=== PATIENT | female | born 1955 | race Caucasian/White ===

== ENCOUNTER → 2018-01-27 12:25 | Outpatient (CLI) | payer MEDICAID, SELFPAY ==
[2018-01-27 12:49] VITALS: PULSE 100; PULSE 107; PULSE 109; PULSE 112; PULSE 77; PULSE 78; PULSE 80; PULSE 82; O2SAT 94; O2SAT 95; O2SAT 96; O2SAT 97
--- NOTE | 2018-01-28 06:41 | PCM.PSN.6M ---
PSN 6 Minute Walk Test - 6 Minute Walk Test 6 Minute Walk Test: 6 Minute Walk Test PSN:6-Minute Walk Test Start: 01/27/18 12:49 Freq: Status: Active Protocol: [id number].6MINW Document 01/27/18 12:49 [facility] (Rec: 01/27/18 12:54 [facility] [id number]) 6 Minute Walk Test Date Performed 01/27/18 Time Performed 12:30 Height 5 ft 4 in Weight: 77.111 kg Weight in Pounds 170.[address]: Jw Umanzor FIO2 (% Oxygen) 21 Assistive device used: None Pre-test Oxygen Delivery Method Room Air Pulse Ox (%) 97 Pulse Rate (60-100 beats/min) 77 Dyspnea Cinthia Scale (0-10) 0 1st minute Oxygen Delivery Method Room Air Pulse Ox (%) 96 Pulse Rate (60-100 beats/min) 80 Dyspnea Cinthia Scale (0-10) 0 2nd minute Oxygen Delivery Method Room Air Pulse Ox (%) 95 Pulse Rate (60-100 beats/min) 82 Dyspnea Cinthia Scale (0-10) 1 3rd minute Oxygen Delivery Method Room Air Pulse Ox (%) 96 Pulse Rate (60-100 beats/min) 100 Dyspnea Cinthia Scale (0-10) 2 Reported Symptoms Increased Work of Breathing 4th minute Oxygen Delivery Method Room Air Pulse Ox (%) 95 Pulse Rate (60-100 beats/min) 112 H Dyspnea Cinthia Scale (0-10) 3 Reported Symptoms Increased Work of Breathing 5th minute Oxygen Delivery Method Room Air Pulse Ox (%) 95 Pulse Rate (60-100 beats/min) 109 H Dyspnea Cinthia Scale (0-10) 3 Reported Symptoms Increased Work of Breathing 6th minute Oxygen Delivery Method Room Air Pulse Ox (%) 94 Pulse Rate (60-100 beats/min) 107 H Dyspnea Cinthia Scale (0-10) 3 Reported Symptoms Increased Work of Breathing Post-test Oxygen Delivery Method Room Air Pulse Ox (%) 97 Pulse Rate (60-100 beats/min) 78 Dyspnea Cinthia Scale (0-10) 0 Full Laps Walked 19 Partial Lap, Number of Tiles Walked 37 Total Distance Walked (ft) 1158 - Interpretation Interpretation: The patient was able to ambulate 1158 feet over the course of 6 minutes on room air with no assistive devices or breaks. The patient experienced no significant desaturation, but did have a peak heart rate of 109 bpm. These findings are consistent with deconditioning. - Recommendations Recommendations: No supplemental oxygen is indicated at this time.
== END ==
PROVIDERS: Family Provider Family Medicine; PCP Family Medicine; Referring Provider Internal Medicine Critical Care Medicine; Visit Provider Internal Medicine Critical Care Medicine
DX: R06.09 Other forms of dyspnea (principal)
CPT/HCPCS: 94618

== ENCOUNTER → 2018-02-22 13:40 | Outpatient (CLI) | payer MEDICAID, SELFPAY ==
[2018-02-22 10:58] VITALS: BMI 29.2
--- NOTE | 2018-02-22 13:42 | ECHOD_ITS ---
Reason For Study: DYSPNEA Procedure This was a 2D Doppler, Color Flow transthoracic echocardiogram. Exam performed in department. Left Ventricle Normal LV size. Left ventricular systolic function is normal. The estimated ejection fraction is 60 %. Transmitral diastolic flow velocities suggest mild (stage 1) diastolic dysfunction (reversed pattern). The global longitudinal strain is normal. The global longitudinal strain = -23.2 % (normal). No regional wall motion abnormalities noted. Right Ventricle Normal RV size. Normal systolic function. Atria Normal left atrium. Normal right atrium. Mitral Valve Normal mitral valve. Tricuspid Valve Normal tricuspid valve. Mild tricuspid valve insufficiency. Pulmonary artery systolic pressure is 22 mmHg. Aortic Valve Normal aortic valve. Trisinus/trileaflet aortic valve. Pulmonic Valve Normal pulmonic valve. Great Vessels Normal aortic root. The pulmonary artery is normal size. Normal inferior vena cava. Pericardium/Pleural No pericardial effusion. MMode/2D Measurements & Calculations LVIDd: 4.4 cm IVSd: 1.0 cm Ao root diam: 3.2 cm LVIDs: 2.9 cm LVPWd: 0.89 cm RVDd: 2.7 cm FS: 33.9 % LAV(MOD-bp): 56.0 ml LA A4 area: 18.2 cm2 LA dimension(2D): 3.5 cm LAV(MOD-bp) Indexed: 30.7 ml/m2 LAV(MOD-sp2): 58.2 ml LAV(MOD-sp4): 49.7 ml RA A4 area: 14.7 cm2 Time Measurements MV dec time: 0.27 sec Doppler Measurements & Calculations MV E max isreal: 80.1 cm/sec Lat Peak E' Isreal: 8.8 cm/sec Med Peak E' Isreal: 5.9 cm/sec MV A max isreal: 85.8 cm/sec E/E' lat: 9.1 E/E' med: 13.5 MV E/A: 0.93 Ao V2 max: 171.5 cm/sec LV V1 max: 138.2 cm/sec PA V2 max: 100.4 cm/sec Ao max P.8 mmHg LV V1 max P.7 mmHg TR max isreal: 213.8 cm/sec TR max P.3 mmHg Interpretation Summary Normal LV size. Left ventricular systolic function is normal. The estimated ejection fraction is 60 %. Transmitral diastolic flow velocities suggest mild (stage 1) diastolic dysfunction (reversed pattern). Mild tricuspid valve insufficiency. The global longitudinal strain = -23.2 % (normal). Ordering Physician: Jw Umanzor D.O. Referring Physician: ADAM BANEGAS Performed By: Shaye Ruiz, EFREM, RVT
== END ==
PROVIDERS: Family Provider Family Medicine; PCP Family Medicine; Referring Provider Internal Medicine Critical Care Medicine; Visit Provider Internal Medicine Critical Care Medicine
DX: R06.09 Other forms of dyspnea (principal)
CPT/HCPCS: 93306

== ENCOUNTER → 2018-03-08 08:34 | Outpatient (CLI) | payer MEDICAID, SELFPAY ==
[2018-03-02 15:51] VITALS: BMI 29.7
--- NOTE | 2018-03-08 08:46 | RAD_ITS ---
STUDY: X-RAY CHEST REASON FOR EXAM: Female, 63 years old. TECHNIQUE: COMPARISON: None. FINDINGS: The lungs are clear and expanded. There is no demonstrated pleural abnormality. Normal size heart. Normal mediastinum and miguel. Normal visualized pulmonary arteries. Normal visualized aortic arch with mild tortuosity of the thoracic aorta. Mild hypertrophic changes involving the mid dorsal spine. Normal visualized ribs, clavicles, and shoulders. There is no demonstrated abnormality of the visualized soft tissue structures of the upper abdomen. RAD/Chest PA and Lateral IMPRESSION: Normal x-ray examination of the chest. Electronically Signed: Star Martínez, at 12:02 EST Tel , Service support ,
[2018-03-08 09:08] LABS: Absolute Lymphocyte Count 1.34 X10^3/ul (0.83-4.51); Absolute Neutrophil Count 3.7 X10^3/uL (2.0-7.7); Basophil# 0.05 X10^3/uL; Basophil% 0.9 % (0-1); Eosinophil# 0.23 X10^3/uL; Eosinophils% 3.9 % (0-5); Hematocrit 39.5 % (37-47); Hemoglobin 12.3 g/dl (12.0-15.0); Lymphocyte # 1.34 X10^3/ul (4.0); Lymphocyte % 22.9 % (19-41); Mean Corp Hgb Conc 31.1 g/gl (32-36); Mean Corpuscular Hgb 27.6 pg (27.0-32.0); Mean Corpuscular Volume 88.6 fL (81-99); Monocyte# 0.51 X10^3/uL; Monocyte% 8.7 % (0-10); Neutrophil # 3.72 X10^3/uL (2.7-7.7); Neutrophil % 63.4 % (47-70); Platelet Count 325 K/mm3 (150-450); RBC Distribution Width CV 14.5 % (11.6-14.6); RBC Distribution Width SD 46.7 fl (35.1-43.9); Red Blood Count 4.46 M/mm3 (4.2-5.4); White Blood Count 5.9 K/mm3 (4.4-11.0)
[2018-03-08 09:09] LABS: POSITIVE COUNT NO; POSITIVE DIFFERENTIAL NO; POSITIVE MORPHOLOGY NO
[2018-03-08 09:21] LABS: International Normalized Ratio 1.1; Prothrombin Time (Protime)PT. 13.7 SECONDS (11.7-14.9)
[2018-03-08 09:41] LABS: AST(SGOT) 11 U/L (15-37); Alanine Aminotransfer ALT/SGPT 19 U/L (13-56); Albumin, Serum 3.6 g/dL (3.2-5.0); Alkaline Phosphatase 78 U/L (45-117); Anion Gap 8 (5-15); BUN 21 mg/dL (7-18); BUN/Creat Ratio 28.8 RATIO (10-20); Bilirubin, Direct 0.09 mg/dL (0.00-0.30); Chloride 105 mmol/L (98-107); Cholesterol 166 mg/dL (200); Creatinine, Serum 0.73 mg/dL (0.55-1.02); EST Glomerular Filtration Rate 86 mL/min (>60); Est Glom Filt Rate - Afr Amer 104 mL/min (>60); Globulin 3.9 g/dL (2.2-4.2); Glucose 90 mg/dL (74-106); High Density Lipoprotein 36 mg/dL; Potassium 3.4 mmol/L (3.5-5.1); Protein, Total 7.5 g/dL (6.4-8.2); Sodium Level 141 mmol/L (136-145); Triglycerides 215 mg/dL; Very Low Density Lipoprotein 43 mg/dL (5-40)
== END ==
PROVIDERS: Family Provider Family Medicine; PCP Family Medicine; Referring Provider Internal Medicine Cardiovascular Disease; Visit Provider Internal Medicine Cardiovascular Disease
DX: E78.5 Hyperlipidemia, unspecified (principal); R06.02 Shortness of breath; R06.00 Dyspnea, unspecified; R07.9 Chest pain, unspecified
CPT/HCPCS: 36415; 71046; 80048; 80061; 80076; 85025; 85610

== ENCOUNTER 2018-03-19 07:41 | Day surgery (SDC) | payer MEDICAID, SELFPAY ==
[2018-03-02 15:51] VITALS: BMI 29.7
[2018-03-18 08:00] VITALS: BMI 29.7
[2018-03-19 08:31] LABS: Anion Gap 9 (5-15); BUN 22 mg/dL (7-18); BUN/Creat Ratio 28.9 RATIO (10-20); Calcium,Total 9.1 mg/dL (8.5-10.1); Chloride 104 mmol/L (98-107); Creatinine, Serum 0.76 mg/dL (0.55-1.02); EST Glomerular Filtration Rate 81 mL/min (>60); Est Glom Filt Rate - Afr Amer 99 mL/min (>60); Estimated Creatinine Clearance 64.58 ml/min; Glucose 105 mg/dL (74-106); Potassium 3.3 mmol/L (3.5-5.1); Sodium Level 140 mmol/L (136-145)
--- NOTE | 2018-03-19 10:04 | CL.D_ITS ---
Patient Name: LEXUS PEOPLES Study Date: 03/19/2018 Performing: Seun Burgess MD Ht: 64.17 inches 163 cm : 1955 Wt: 171.96 lbs 78 kg Age: 63 Gender: female BSA: 1.84 PROCEDURE(S) PERFORMED [id number]/LV CLINICAL PROFILE AND INDICATIONS Indications: New Onset Angina <= 2 months, Suspected CAD Heart Failure: None Stress/Imaging Stress Echocardiogram: Yes Result: IndeterminantStress Echocardiogram: Indetermina nt Angina Classification Anginal Classification w/in 2 Weeks: CCS III CAD Presentations: Unstable angina. Comorbidities/Risk Factors: Hypertension Dyslipidemia CONCLUSIONS Normal LV size, wall motion,and systolic function RECOMMENDATIONS D/c plavix, continue baby asa, PFTs in 2 weeks. DESCRIPTION OF PROCEDURE The patient arrived to the procedure lab. The risks and benefits of the procedure as well as a full d escription of our services here and current unavailability of surgical backup were fully explained to the patient and/or their significant other prior to the catheterization. The Timeout was completed, verifying the correct patient and procedure. The patient's procedural site was prepped and draped in the usual fashion. Local anesthetic was given subcutaneously to right groin region with Lidocaine 2%. Using a modified Seldinger technique, arterial access was obtained via the right femoral artery, a 4 Fr sheath was inserted Left Coronary Artery selective angiography was performed in multiple views us ing a 4 Fr. JL5 catheter. Right Coronary Artery selective angiography was then performed in multiple views using a 4 Fr. 3DRC catheter. Left Ventriculography was performed in PHAM projection using a 4 Fr . Pigtail catheter. LV to AO pullback pressures were then recorded.The arterial sheath was pulled and manual compression applied until hemostasis is achieved. CORONARY ANGIOGRAPHY DOMINANCE: Right Dominant LEFT HEART ASSESSMENT Left Ventricular Ejection Fraction: by LV Gram 65 % Normal LV wall motion Normal Left Ventricular systolic function Normal Left Ventricular systolic function LVEDP: 14 mmHg LEFT MAIN: Angiographically normal LEFT ANTERIOR DECENDING ARTERY: Angiographically normal CIRCUMFLEX ARTERY: Angiographically normal RIGHT CORONARY ARTERY: Angiographically normal COMPLICATIONS No Complications PROCEDURE MEDICATIONS Oxygen: 2 L/min via nasal cannula Potassium Chloride 10 mEq in 100cc NS 03/19/2018 09:23:19 SUMMARY OF HEMODYNAMIC DATA Time AIR REST ECG 08:14:48 AO 145/67 (98) SA 09:51:54 LV 150/-20, 13 09:56:30 LV 154/-20, 14 09:56:37 LVp 151/-23, 12 09:56:52 AOp 151/72 (106) 09:56:57 Signed By Seun Burgess MD On 03/19/2018 10:03:21 Seun Burgess MD
== END 2018-03-19 14:40 | disposition home or self-care (01) ==
LOC: CLSP 07:41
PROVIDERS: Family Provider Family Medicine; PCP Family Medicine; Referring Provider Internal Medicine Cardiovascular Disease; Visit Provider Internal Medicine Cardiovascular Disease
DX: R06.02 Shortness of breath (principal); E78.5 Hyperlipidemia, unspecified; I10 Essential (primary) hypertension; R40.0 Somnolence; R07.9 Chest pain, unspecified
CPT/HCPCS: 36415; 80048; 93458; J7040; Q9967; C1769; C1894

== ENCOUNTER → 2018-05-03 20:00 | Outpatient (CLI) | payer MEDICAID, SELFPAY ==
[2018-03-02 15:51] VITALS: BMI 29.7
== END ==
PROVIDERS: Family Provider Family Medicine; PCP Family Medicine; Referring Provider Internal Medicine Cardiovascular Disease; Visit Provider Internal Medicine Cardiovascular Disease
DX: G47.33 Obstructive sleep apnea (adult) (pediatric) (principal); I49.3 Ventricular premature depolarization
CPT/HCPCS: 95810

== ENCOUNTER → 2018-05-26 20:07 | Outpatient (CLI) | payer MEDICAID, SELFPAY ==
[2018-05-18 13:18] VITALS: BMI 29.7
== END ==
PROVIDERS: Family Provider Family Medicine; PCP Family Medicine; Referring Provider Internal Medicine Cardiovascular Disease; Visit Provider Internal Medicine Cardiovascular Disease
DX: G47.33 Obstructive sleep apnea (adult) (pediatric) (principal)
CPT/HCPCS: 95811

== ENCOUNTER → 2018-06-21 | Outpatient (CLI) | payer MEDICAID, SELFPAY ==
[2018-05-18 13:18] VITALS: BMI 29.7
== END | disposition home or self-care (01) ==
LOC: SL 13:53
PROVIDERS: Family Provider Family Medicine; PCP Family Medicine; Referring Provider Nurse Practitioner Acute Care; Visit Provider Nurse Practitioner Acute Care
DX: G47.33 Obstructive sleep apnea (adult) (pediatric) (principal)

== ENCOUNTER → 2019-01-24 14:13 | Outpatient (CLI) | payer MEDICARE, MEDICAID, SELFPAY ==
[2018-10-11 15:39] VITALS: BMI 31.6
--- NOTE | 2019-01-24 14:25 | VDLE_ITS ---
Reason For Study: EDEMA RIGHT LEFT CFV is compressible, spontaneous, phasic, GSV is normal. competent and demonstrates normal CFV is compressible, spontaneous, phasic, augmentation. competent, and demonstrates normal Procedure augmentation. Exam performed in department. FV is compressible, spontaneous, phasic, A preliminary report was called and/or faxed competent and demonstrates normal to Dr Mejia. augmentation. POP V is compressible, spontaneous, phasic, competent and demonstrates normal augmentation. T/P Trunk is compressible. PTV is compressible. LT PerV is compressible. Interpretation Summary Deep veins of the left lower extremity are patent and compressible segmentally. There is no evidence of left lower extremity deep vein thrombosis. Valvular competence appears intact within the proximal deep venous system on the left . The left great saphenous vein appears patent and compressible segmentally. Ordering Physician: Madeleine Mejia Referring Physician: Madeleine Mejia Performed By: Shaye Ruiz, EFREM, RVT
== END ==
PROVIDERS: Family Provider Family Medicine; PCP Family Medicine; Referring Provider Family Medicine; Visit Provider Family Medicine
DX: M79.662 Pain in left lower leg (principal); R60.9 Edema, unspecified
CPT/HCPCS: 93971

== ENCOUNTER → 2019-06-03 13:05 | Outpatient (CLI) | payer MEDICARE, BC, SELFPAY ==
[2018-10-11 15:39] VITALS: BMI 31.6
--- NOTE | 2019-06-03 13:09 | VDUE_ITS ---
Reason For Study: RUE swelling Right Proximal Left Proximal Right jugular vein is spontaneous, widely Left subclavian vein is spontaneous, widely patent, phasic, with no intraluminal patent, phasic, with no intraluminal echogenicity noted. echogenicity noted. Right subclavian vein is spontaneous, widely patent, phasic, with no intraluminal echogenicity noted. Right Lower Arm Right radial vein is compressible. Right ulnar vein is compressible. Right Arm Right axillary vein is spontaneous, patent, phasic, competent, compressible and demonstrates augmentation. Right brachial vein is compressible. Right cephalic vein is compressible. Right basilic vein is compressible. Interpretation Summary Deep veins of the right upper extremity are patent and compressible segmentally. There is no evidence of deep vein thrombosis. The superficial veins of the right upper extremity, the basilic and cephalic veins, are patent and compressible. There is no evidence of right upper extremity superficial thrombophlebitis involving the veins imaged. Ordering Physician: Zachary David Referring Physician: Zachary David Performed By: Yomaira Oleary, RDCS, RVT ?
== END ==
PROVIDERS: PCP Family Medicine; Referring Provider Family Medicine; Visit Provider Family Medicine
DX: M79.601 Pain in right arm (principal); M79.89 Other specified soft tissue disorders
CPT/HCPCS: 93971

== ENCOUNTER → 2019-07-07 13:17 | Outpatient (CLI) | payer MEDICARE, SELFPAY ==
[2018-10-11 15:39] VITALS: BMI 31.6
[2019-07-07 14:23] LABS: Creatinine, Serum 0.78 mg/dL (0.55-1.02); EST Glomerular Filtration Rate 79 mL/min (>60); Est Glom Filt Rate - Afr Amer 95 mL/min (>60)
== END ==
PROVIDERS: PCP Family Medicine; Referring Provider Surgery Vascular Surgery; Visit Provider Surgery Vascular Surgery
DX: M79.609 Pain in unspecified limb (principal); R60.9 Edema, unspecified; I74.9 Embolism and thrombosis of unspecified artery
CPT/HCPCS: 36415; 82565

== ENCOUNTER → 2019-07-14 13:13 | Outpatient (CLI) | payer MEDICARE, BC, SELFPAY ==
[2018-10-11 15:39] VITALS: BMI 31.6
--- NOTE | 2019-07-14 13:16 | CT_ITS ---
STUDY: CT SCAN UPPER EXTREMITY RIGHT REASON FOR EXAM: Female, 64 years old. Right arm swelling, shoulder pain x 2 months, eval for arterial embolism or thoracic outlet syndrome. Venous phase per order. RADIATION DOSAGE (If Supplied By Facility): CTDIvol = ( 23.81 ) mGy, DLP = ( 2087.74 ) mGycm. Individualized dose optimization techniques were used for this CT.? TECHNIQUE: Multiple axial tomographic images were obtained following IV contrast administration. Coronal and sagittal reconstruction was obtained as well. COMPARISON: None. FINDINGS: The right subclavian artery as well as the axillary artery and brachial arteries are widely patent. No evidence of obstruction. Benign appearing right axillary lymph nodes. CT/Extremity Upper WITH Contrast IMPRESSION: No abnormality is seen. Electronically Signed: Kimani De Oliveira, at 14:33 EDT , Service support ,
--- NOTE | 2019-07-14 13:16 | CT_ITS ---
STUDY: CTA CHEST REASON FOR EXAM: Female, 64 years old. Right arm swelling, shoulder pain x 2 months, eval for arterial embolism or thoracic outlet syndrome. RADIATION DOSAGE (If Supplied By Facility): CTDIvol = ( 23.81 ) mGy, DLP = ( 2087.74 ) mGycm TECHNIQUE: The examination was performed with the intravenous administration of 100mL Isovue 370. Post-processing of the angiographic images was performed, with multiplanar reformation and 3D reconstruction. Individualized dose optimization techniques were used for this CT. COMPARISON: None. FINDINGS: Small benign-appearing bilateral axillary lymph nodes. Normal enhancement of the main pulmonary artery and right and left pulmonary arteries. Normal enhancement of the bilateral peripheral pulmonary arteries. There is no demonstrated pulmonary embolism. There is atherosclerotic calcification of the aortic arch with tortuosity. There is no demonstrated aortic dissection. Normal heart and pericardium. Normal mediastinum. Normal hilar regions. Normal visualized trachea and bronchi. The lungs are well expanded. Normal pulmonary parenchyma. Normal pleura. Normal chest wall structures. There are degenerative changes of thoracic spine. Small hiatal hernia. CT/CTA Chest W/WO Contrast IMPRESSION: Normal CTA chest examination, without a demonstrated pulmonary embolism or arterial dissection. No evidence of thoracic outlet syndrome. Electronically Signed: Kimani De Oliveira, at 14:32 EDT , Service support ,
== END ==
PROVIDERS: PCP Family Medicine; Referring Provider Surgery Vascular Surgery; Visit Provider Surgery Vascular Surgery
DX: M79.609 Pain in unspecified limb (principal); R60.9 Edema, unspecified; I74.9 Embolism and thrombosis of unspecified artery
CPT/HCPCS: 71275; 73201; Q9967

== ENCOUNTER → 2019-10-13 08:44 | Outpatient (CLI) | payer MEDICARE, SELFPAY ==
[2019-09-08 06:50] VITALS: BMI 31.8
[2019-10-13 09:52] LABS: AST(SGOT) 17 U/L (15-37); Alanine Aminotransfer ALT/SGPT 25 U/L (13-56); Albumin, Serum 3.8 g/dL (3.2-5.0); Alkaline Phosphatase 83 U/L (45-117); Bilirubin, Direct 0.09 mg/dL (0.00-0.30); Cholesterol 181 mg/dL (200); Globulin 3.9 g/dL (2.2-4.2); High Density Lipoprotein 41 mg/dL; Protein, Total 7.7 g/dL (6.4-8.2); Triglycerides 226 mg/dL; Very Low Density Lipoprotein 45 mg/dL (5-40)
== END ==
PROVIDERS: Internal Medicine Cardiovascular Disease; PCP Family Medicine; Referring Provider Family Medicine; Visit Provider Family Medicine
DX: E78.5 Hyperlipidemia, unspecified (principal)
CPT/HCPCS: 36415; 80061; 80076

== ENCOUNTER 2019-12-14 18:35 | Inpatient (IN) | payer MEDICARE, MEDICAID, SELFPAY ==
[2019-09-08 06:50] VITALS: BMI 31.8
[2019-12-14] VITALS (7 sets, daily range): BP systolic 118–160; BP diastolic 75–107; PULSE 59–77; RESP 14–25; TEMP 36.3–36.6; O2SAT 94–98; BMI 32.8; BMI 31.8; BMI 31.9
--- NOTE | 2019-12-14 18:37 | ED.RN ---
CALLED FOR EKG PER RN REQUEST, NO OLD EKGS IN MUSE
--- NOTE | 2019-12-14 18:48 | EKG12_ITS ---
Test Reason : DYSRHYTHMIA Blood Pressure : / mmHG Vent. Rate : 073 BPM Atrial Rate : 073 BPM P-R Int : 182 ms QRS Dur : 092 ms QT Int : 444 ms P-R-T Axes : 052 040 079 degrees QTc Int : 489 ms Normal sinus rhythm Nonspecific ST and T wave abnormality Prolonged QT Abnormal ECG Confirmed by KIRSTIN VANESSA, HEMA ([id number]), research editor NATALIA YANCEY ([id number]) on 12/19/2019 2:17:45 PM Referred By: ELANA Confirmed By:HEMA FULTON MD
--- NOTE | 2019-12-14 18:52 | ED.DCSUM_ITS ---
History of Present Illness Chief Complaint: Edema Informant: Patient, Family Narrative: 64-year-old female with past medical history of COPD, hypertension, thoracic outlet syndrome presents with concern for right arm swelling, right shoulder pain, dyspnea on exertion, lower extremity swelling. States that approximately 2 hours ago she began having pain in her right back shoulder. Worse with movement of her left shoulder as well as deep inspiration. Denies any trauma. Patient did have stenting of a vein done by Dr. Suresh approximately 1 month ago. This was for her thoracic outlet syndrome. Denies any fever, chills, cough, nausea, vomiting, abdominal pain. Past Medical History - Allergies and Home Meds Allergies/Adverse Reactions: Allergies No Known Allergies Allergy (Verified 12/14/19 18:36) Past Medical History: - - HTN, COPD, thoracic outlet syndrome Surgical History: - - right venous stenting Lives: With Family Smoking Status: Never smoker Alcohol: None Drugs: None - Family History Maternal Family History: Family History (Last Reviewed 12/14/19 @ 22:[address] Cory Ibarra MD) Mother Arthritis Skin cancer Brother Arthritis Skin cancer Kidney disease Father Parkinson disease Daughter Thyroid disorder Grandfather Hypertension Grandmother Hypertension Grandfather Hypertension CVA (cerebral vascular accident) Grandmother Hypertension Review of Systems General: Denies: Chills, Fever, Sweats Eyes: Denies: Visual changes - bilaterally, Diplopia ENT: Denies: Rhinorrhea, Sore throat Cardiovascular: Denies: Chest pain, Palpitations Respiratory: Reports: Dyspnea on exertion. Denies: Dyspnea, Cough Gastrointestinal: Denies: Abdominal pain, Nausea, Vomiting, Diarrhea, Melena, Hematochezia Genitourinary: Denies: Dysuria, Hematuria, Frequency Musculoskeletal: Reports: Myalgias, Swelling. Denies: Back pain, Extremity Pain Skin: Denies: Rash, Wounds Neurological: Denies: Headache, Weakness, Numbness Physical Exam Vital Signs/Narrative: Vital Signs Temp Pulse Resp BP Pulse Ox 12/14/19 18:37 97.3 F L 76 18 118/107 H 97 Inital Vital Signs reviewed: Yes General: Well nourished, Well developed, No Acute Distress Head: Normocephalic, Atraumatic Eyes: Perrl, EOMI ENT: Moist mucous membranes, No rhinorrhea Neck: Supple, Nontender Cardiovascular: Regular rate, Regular rhythm, No murmurs Respiratory: No distress, CTA bilaterally, Chest nontender Abdomen: Soft, Nontender, Nondistended, Normal bowel sounds Back: Nontender, Normal Inspection Extremities: - - RUE swelling. Pain in right scapular region. Bilateral lower extremity edema. Skin: Normal color, No rash Neurological: Alert, Oriented x3, Cranial nerves II-XII grossly intact, Normal Strength, Normal Sensation Psychological: Normal affect, Normal Mood Diagnostic/Tx/Re-eval Chest X-Ray - ED: 1 View, No Acute Disease Clinical Impression(s) from Imaging Studies Chest X-Ray 12/14/19 19:15 IMPRESSION: No definite acute or significant abnormality seen. Electronically Signed: Shadi Pleitez MD at 19:57 EDT , Service support , Chest CTA 12/14/19 19:50 IMPRESSION: Normal CTA chest examination, without a demonstrated pulmonary embolism or arterial dissection. Incomplete expansion of the lungs. Probable mild diffuse pulmonary edema and scattered areas of fibrosis. Electronically Signed: Shadi Pleitez MD at 20:37 EDT , Service support , Laboratory Data 12/14/19 12/14/19 12/14/19 18:59 18:59 18:59 WBC 7.2 RBC 4.20 Hgb 11.7 L Hct 37.4 MCV 89.0 MCH 27.9 MCHC 31.3 L RDW Std Deviation 45.1 H RDW Coeff of Matthew 14.0 Plt Count 318 MPV 10.5 Immature Gran % (Auto) 0.400 Neut % (Auto) 76.4 H Lymph % (Auto) 12.1 L [place] % (Auto) 7.9 Eos % (Auto) 2.6 Baso % (Auto) 0.6 Absolute Neuts (auto) 5.5 Absolute Lymphs (auto) 0.87 Nucleated RBC % 0 PT INR APTT D-Dimer Quant (PE/DVT) 0.79 H* Sodium 140 Potassium 4.0 Chloride 108 H Carbon Dioxide 28.0 Anion Gap 4 L BUN 22 H Creatinine 0.84 Estim Creat Clear Calc 57.66 Est GFR (MDRD) Af Amer 88 Est GFR (MDRD) Non-Af 72 BUN/Creatinine Ratio 26.3 H Glucose 164 H Calcium 9.1 Troponin I < 0.015 B-Natriuretic Peptide 12/14/19 12/14/19 18:59 18:59 WBC RBC Hgb Hct MCV MCH MCHC RDW Std Deviation RDW Coeff of Matthew Plt Count MPV Immature Gran % (Auto) Neut % (Auto) Lymph % (Auto) [place] % (Auto) Eos % (Auto) Baso % (Auto) Absolute Neuts (auto) Absolute Lymphs (auto) Nucleated RBC % PT 13.0 INR 1.0 APTT 28.8 D-Dimer Quant (PE/DVT) Sodium Potassium Chloride Carbon Dioxide Anion Gap BUN Creatinine Estim Creat Clear Calc Est GFR (MDRD) Af Amer Est GFR (MDRD) Non-Af BUN/Creatinine Ratio Glucose Calcium Troponin I B-Natriuretic Peptide 28.7 - Rhythm Strip Rhythm Strip: Sinus Rhythm Rate: 73 Ectopy: None - EKG Initial EKG Interpretation: Sinus Rhythm - Normal sinus rhythm at 73 bpm. ND interval of 182 ms. QTC of [address] changes. - Medical Decision Making Inital EKG shows nonspecific EKG changes. Troponin negative. Elevated d-dimer. CTA shows concern for mild diffuse interstitial edema. Patient does have lower extremity edema on exam. No hypoxemia. Patient did have an episode of chest pain in the emergency department. EKG was repeated and unchanged. Patient was given aspirin. With Dr. Suresh patient's vascular surgeon who did advise right upper extremity DVT study in the morning. Given her chest pain as well as possible new onset CHF patient will be admitted for further evaluation and meant. Patient agreeable with this plan and admitted in stable condition. Impression: 1. Chest pain 2. Pulmonary edema 3. Right upper extremity edema 4. Thoracic outlet syndrome ED Disposition - Plan for ED Patient: Disposition: Acute Care Hospital [facility]
[2019-12-14] MEDS: Morphine 4 MG/ML Syringe IV (19:07)
[2019-12-14] MEDS: Ondansetron 4 MG/2 ML Vial IV (19:08)
--- NOTE | 2019-12-14 19:15 | RAD_ITS ---
STUDY: X-RAY CHEST REASON FOR EXAM: Female, 64 years old. CHEST PAIN TECHNIQUE: Single AP portable view of the chest. COMPARISON: 03/08/2018. FINDINGS: Moderate lung volumes. No infiltrates or effusions. Vascular stent seen in position compatible with the right subclavian vein or artery. Normal size heart. Normal mediastinum and miguel. Normal visualized pulmonary arteries. Normal visualized aortic arch and descending thoracic aorta. Normal visualized thoracic spine. Normal visualized ribs, clavicles, and shoulders. There is no demonstrated abnormality of the visualized soft tissue structures of the upper abdomen. There are clips in the right axilla consistent with lymphadenectomy for breast cancer. RAD/Chest 1 View (Portable) IMPRESSION: No definite acute or significant abnormality seen. Electronically Signed: Shadi Pleitez MD at 19:57 EDT , Service support ,
[2019-12-14 19:20] LABS: Absolute Lymphocyte Count 0.87 X10^3/uL (0.83-4.51); Absolute Neutrophil Count 5.5 X10^3/uL (2.0-7.7); Basophil# 0.04 X10^3/uL; Basophil% 0.6 % (0-1); Eosinophil# 0.19 X10^3/uL; Eosinophils% 2.6 % (0-5); Hematocrit 37.4 % (37-47); Hemoglobin 11.7 g/dL (12.0-15.0); Lymphocyte # 0.87 X10^3/ul (4.0); Lymphocyte % 12.1 % (19-41); Mean Corp Hgb Conc 31.3 g/dL (32-36); Mean Corpuscular Hgb 27.9 pg (27.0-32.0); Mean Platelet Vol. 10.5 fl (6.2-12.0); Monocyte# 0.57 X10^3/uL; Monocyte% 7.9 % (0-10); NRBC Flagged by Analyzer 0 % (0-5); Neutrophil # 5.49 X10^3/uL (2.7-7.7); Neutrophil % 76.4 % (47-70); Platelet Count 318 K/mm3 (150-450); RBC Distribution Width SD 45.1 fl (35.1-43.9); White Blood Count 7.2 K/mm3 (4.4-11.0)
--- NOTE | 2019-12-14 19:44 | ED.RN ---
PT REPORTS INCREASED CHEST PRESSURE. DR. LOZADA INFORMED, REPEAT EKG ORDERED. RESPIRATORY THERAPY NOTIFIED FOR REPEAT EKG.
[2019-12-14 19:50] LABS: D-Dimer Quantitative (DVT/PE) 0.79 FEU/ug/m (0.27-0.49)
--- NOTE | 2019-12-14 19:50 | CT_ITS ---
STUDY: CTA CHEST REASON FOR EXAM: Female, 64 years old. CHEST PAIN,SOB,SWELLING TO RT ARM POST-OP,ELEVATED BP AND DDIMER LEVEL POST-OP SURGERY FOR THORACIC OUTLET SYNDROME RADIATION DOSAGE (If Supplied By Facility): CTDIvol = ( 17.27 ) mGy, DLP = ( 485.12 ) mGycm TECHNIQUE: The examination was performed with the intravenous administration of IV 100mL Isovue-370. Post-processing of the angiographic images was performed, with multiplanar reformation and 3D reconstruction. Individualized dose optimization techniques were used for this CT. COMPARISON: 07/14/2019. FINDINGS: Normal enhancement of the main pulmonary artery and right and left pulmonary arteries. Normal enhancement of the bilateral peripheral pulmonary arteries. There is no demonstrated pulmonary embolism. Normal thoracic aorta and visualized great vessels. There is no demonstrated aortic dissection. There is borderline cardiac cardiomegaly. Normal mediastinum. Normal hilar regions. Normal visualized trachea and bronchi. The lungs are under expanded. There is bilateral diffuse hazy pulmonary density which could represent mild pulmonary edema and there may be mild diffuse fibrosis. There are no focal infiltrates or effusions. Normal osseous structures. Normal visualized upper abdomen. CT/CTA Chest W/WO Contrast IMPRESSION: Normal CTA chest examination, without a demonstrated pulmonary embolism or arterial dissection. Incomplete expansion of the lungs. Probable mild diffuse pulmonary edema and scattered areas of fibrosis. Electronically Signed: Shadi Pleitez MD at 20:37 EDT , Service support ,
[2019-12-14 19:51] LABS: BNP,B-Type NATRIURETIC PEPTIDE 28.7 pg/mL (0-100)
[2019-12-14 19:54] LABS: Anion Gap 4 (5-15); BUN 22 mg/dL (7-18); BUN/Creat Ratio 26.3 RATIO (10-20); Calcium,Total 9.1 mg/dL (8.5-10.1); Chloride 108 mmol/L (98-107); Creatinine, Serum 0.84 mg/dL (0.55-1.02); EST Glomerular Filtration Rate 72 mL/min (>60); Est Glom Filt Rate - Afr Amer 88 mL/min (>60); Estimated Creatinine Clearance 57.66 ml/min; Glucose 164 mg/dL (74-106); Sodium Level 140 mmol/L (136-145)
--- NOTE | 2019-12-14 21:30 | HP.PCM_ITS ---
Problem List (1) BMI 30.0-30.9,adult Status: Chronic (2) DERICK (obstructive sleep apnea) Status: Chronic Comment: Overall AHI 63 events per hour (3) History of left heart catheterization Status: Chronic Comment: Normal coronaries, normal LV (4) Hyperlipidemia Status: Chronic (5) Essential hypertension Status: Chronic (6) Vertigo Status: Chronic (7) Chest pain Status: Acute Comment: Negative stress echo 10/19/2017 @ [facility] (8) Thoracic outlet syndrome Status: Acute History of Present Illness Date of Admission: 12/14/19 Chief Complaint: Right scapula pain. The patient is a 64 year old F with a significant history of thoracic outlet syndrome status post surgery and stent placement; obstructive sleep apnea; and hypertension who presents to emergency department with excruciating sharp right scapular pain that radiated to his right and into his right hand. Associated with her symptoms is swelling of his right upper extremity; erythema of the medial side of his right arm and and a knot in his right medial arm. Further he has intermittent chest pain that radiates to under his right breast. Of note patient had a surgery for thoracic outlet syndrome where his first rib and muscles were resected. She had a stent placed. The surgery was done at [place] by Dr. Suresh, about a month ago. Also patient reports of nighttime swelling of her bilateral legs. She reported she had these symptoms previously but it resolved with hair recent thoracic outlet syndrome surgery only for the bilateral lower extremities to re-occur 3 to 4 days after the surgery. Past Medical History Past Medical History (Chronic Problems): Chronic Problems (Last Reviewed 12/14/19 @ 22:[address] Cory Ibarra MD) BMI 30.0-30.9,adult (Chronic) DERICK (obstructive sleep apnea) (Chronic) Overall AHI 63 events per hour History of left heart catheterization (Chronic 03/19/18) Normal coronaries, normal LV Hyperlipidemia (Chronic) Essential hypertension (Chronic) Vertigo (Chronic) Medical History: Medical History (Last Reviewed 12/14/19 @ 22:[address] Cory Ibarra MD) Hyperlipidemia (Chronic) E78.5 Essential hypertension (Chronic) I10 Vertigo (Chronic) R42 Shortness of breath (Inactive) R06.02 Dyspnea (Inactive) R06.00 Chest pain (Acute) R07.9 Negative stress echo 10/19/2017 @ [facility] Peripheral edema R60.9 Arthritis M19.90 Migraine G43.909 Osteoarthritis of hip, unspecified M16.9 Vision problems H54.7 Headache R51 Allergies No Known Allergies Allergy (Verified 12/14/19 18:36) Home Medications: Ambulatory Orders Medication Instructions Recorded amlodipine 10 mg tablet 10 mg PO DAILY 01/07/18 meclizine 25 mg tablet See Rx Instructions PO DAILY PRN 01/07/18 metoprolol succinate 50 mg 50 mg PO DAILY 01/07/18 tablet,extended release 24 hr triamterene 37.5 1 cap PO DAILY 01/07/18 mg-hydrochlorothiazide 25 mg capsule aspirin 81 mg tablet,delayed 81 mg PO DAILY #90 tab 02/09/19 release potassium chloride 10 mEq 10 meq PO DAILY #30 tab 02/09/19 tablet,extended release Clopidogrel Bisulfate [Clopidogrel] 75 mg PO DAILY 12/14/19 Omeprazole 40 mg PO DAILY 12/14/19 Surgical History: Surgical History (Last Reviewed 12/14/19 @ 22:[address] Cory Ibarra MD) History of left heart catheterization (Chronic) Onset Date: 03/19/18 Z98.890 Normal coronaries, normal LV H/O section Z98.891 3 sections H/O: hysterectomy Z90.710 History of hip replacement Z96.649 Bilateral Hx of cholecystectomy Z90.49 Surgical History: - - right venous stenting Lives: With Family Smoking Status: Never smoker Alcohol: None Drugs: None - *Family History Maternal Family History: Family History (Last Reviewed 12/14/19 @ 22:[address] Cory Ibarra MD) Mother Arthritis Skin cancer Brother Arthritis Skin cancer Kidney disease Father Parkinson disease Daughter Thyroid disorder Grandfather Hypertension Grandmother Hypertension Grandfather Hypertension CVA (cerebral vascular accident) Grandmother Hypertension Review of Systems Constitutional: Denies: Chills, Fever, Weight Change HEENT: Denies: Head Aches, Sinus Congestion, Sinus Drainage Cardiovascular: Reports: Chest Pain. Denies: Palpitations Respiratory: Denies: Cough, Sputum production Gastrointestinal: Denies: Abdominal Pain, Nausea, Vomiting Genitourinary: Denies: Dysuria Musculoskeletal: Reports: Arm Pain, Shoulder Pain Skin: Reports: Skin Changes - Erythema of right medial arm.. Denies: Rash, Woun ds Neurological: Denies: Numbness, Tingling, Focal weakness Psychiatric: Denies: Anxiety, Depression, Homicidal Ideations, Suicidal Ideations Hematologic/ Lymphatic: Denies: Easy Bruising, Easy Bleeding VTE Information - Inpt Only VTE Present on Admission: No VTE Mechan Device Prophylaxis: None VTE Pharm Prophylaxis ordered?: No Reason prophylaxis not ordered:: Treatment Not Indicated - Started on heparin d rip for suspected DVT in the right upper extremity. VTE Suspected: Suspected DVT Patient Problems: Active and Suspected Problems (Last Reviewed 12/14/19 @ 22:[address] Cory Ibarra MD) Thoracic outlet syndrome (Acute) - Physical Exam Vitals/I&O's: Vital Signs Temp Pulse Resp BP Pulse Ox 97.3 F L 77 25 H 157/83 H 94 12/14/19 18:37 12/14/19 20:21 12/14/19 20:21 12/14/19 20:21 12/14/19 20:21 Oxygen Delivery Method Room Air Weight: 86.6 kg Body Mass Index (BMI) 32.8 General: Alert, Oriented x3, Cooperative HEENT: Atraumatic, PERRLA, EOMI, Normocephalic Neck: Supple, No JVD, Negative Carotid Bruits Lungs: Clear to auscultation, Normal air movement Cardiovascular: Regular rate, No murmurs Abdomen: Bowel Sounds Present, Soft, Non Tender Extremities: Edema - Right arm to right hand., Tenderness - Right arm to right hand. Skin: - - Right medial arm; mild increase in warmth of right upper extremity. Musculoskeletal: Tenderness - Right arm to right hand. Neurological: Cranial nerves II-XII grossly intact Psych/Mental Status: Normal Affect, Appropriate Laboratory Results 12/14/19 18:59: WBC 7.2, RBC 4.20, Hgb 11.7 L, Hct 37.4, MCV 89.0, MCH 27.9, MCHC 31.3 L, RDW Std Deviation 45.1 H, RDW Coeff of Matthew 14.0, Plt Count 318, MPV 10.5, Immature Gran % (Auto) 0.400, Neut % (Auto) 76.4 H, Lymph % (Auto) 12.1 L , [place] % (Auto) 7.9, Eos % (Auto) 2.6, Baso % (Auto) 0.6, Absolute Neuts (auto) 5.5, Absolute Lymphs (auto) 0.87, Nucleated RBC % 0 12/14/19 18:59: D-Dimer Quant (PE/DVT) 0.79 H* 12/14/19 18:59: Sodium 140, Potassium 4.0, Chloride 108 H, Carbon Dioxide 28.0, Anion Gap 4 L, BUN 22 H, Creatinine 0.84, Estim Creat Clear Calc 57.66, Est GFR (MDRD) Af Amer 88, Est GFR (MDRD) Non-Af 72, BUN/Creatinine Ratio 26.3 H, Glucose 164 H, Calcium 9.1, Troponin I < 0.015 12/14/19 18:59: B-Natriuretic Peptide 28.7 Assessment/Plan All Active Problems (Last Reviewed 12/14/19 @ 22:[address] Cory Ibarra MD) Thoracic outlet syndrome (Acute) Chest pain (Acute) The patient is a 64 year old F with a significant history of thoracic outlet syndrome status post surgery and stent placement; obstructive sleep apnea; and hypertension who presents emergency department with excruciating sharp right scapular pain that radiated to his right into his right hand; swelling of right upper extremity; intermittent chest pain; erythema and knot at her right upper extremity. Thoracic outlet syndrome with possible clotting soon of stents. Emergency department doctor discussed the case with Dr. Suresh. Further hospitalist also discussed the case with Dr. Suresh. We will continue patient on her aspirin and Plavix. Will start patient on heparin drip. We will order clindamycin for possible superimposed infection. Ultrasound was not immediately available at emergency department. Ultrasound of right upper extremity in a.m.. Intermittent chest pain EKG with mild ST depression in in V4 to V5. Mild QTC prolongation of 491. Review of EKG on 03/02/2018 did not show these changes. Likely likely secondary to thoracic outlet syndrome. Received full dose aspirin at emergency department Cardiac catheterization on 03/19/2018 was unremarkable. At that time recommendation was to DC her Plavix, continue baby aspirin and PFTs in 2 weeks. Echocardiogram on 02/22/2018; showed mild (stage I) diastolic dysfunction (revised pattern) Trend troponins. Continue home aspirin and Plavix. Heparin drip as above. Hypertension Patient with uncontrolled blood pressure on presentation Metoprolol continued Triamterene and HCTZ with potassium supplementation continued. Amlodipine continued. Trend blood pressures and adjust blood pressure medications. Obstructive sleep apnea CPAP continued. Obesity: BMI of 32.8. Lifestyle modification recommended. DVT prophylaxis Not indicated as patient has been started on heparin drip. Inpatient E&M: 05658 Init Hosp L3
[2019-12-14] MEDS: HYDROmorphone 0.5 MG/0.5 ML SYRINGE IV (22:11)
[2019-12-14] MEDS: Aspirin 81 MG TAB.CHEW 324 MG PO (22:11)
--- NOTE | 2019-12-14 22:38 | ECHOD_ITS ---
Reason For Study: DYSPNEA Procedure This was a 2D Doppler, Color Flow transthoracic echocardiogram. Exam performed portable in patient room. Left Ventricle The estimated ejection fraction is 65 %. Stage 2 diastolic dysfunction. No regional wall motion abnormalities noted. Right Ventricle Normal RV size. Normal systolic function. Atria The left atrium is mildly enlarged. Normal right atrium. No doppler evidence for ASD. Mitral Valve There is no mitral valve stenosis. Trivial mitral valve insufficiency. Tricuspid Valve There is no tricuspid stenosis. Unable to estimate RV systolic pressure due to inadequate jet, pulmonary artery pressure probably normal. Aortic Valve Trisinus/trileaflet aortic valve. There is no aortic stenosis. No aortic valve insufficiency. Pulmonic Valve There is no pulmonic valvular stenosis. Trivial pulmonic valve insufficiency. Great Vessels Normal aortic root. Pericardium/Pleural No pericardial effusion. MMode/2D Measurements & Calculations LVIDd: 3.9 cm IVSd: 1.1 cm Ao root diam: 3.6 cm LVIDs: 2.7 cm LVPWd: 1.1 cm RVDd: 3.8 cm FS: 30.9 % LAV(MOD-bp): 68.0 ml LA A4 area: 21.9 cm2 LA dimension(2D): 3.5 cm LAV(MOD-bp) Indexed: 35.9 ml/m2 LAV(MOD-sp2): 65.7 ml LAV(MOD-sp4): 66.9 ml RA A4 area: 16.0 cm2 Time Measurements MV dec time: 0.30 sec Doppler Measurements & Calculations MV E max isreal: 109.5 cm/sec Lat Peak E' Isreal: 8.8 cm/sec Med Peak E' Isreal: 6.6 cm/sec MV A max isreal: 102.4 cm/sec E/E' lat: 12.5 E/E' med: 16.6 MV E/A: 1.1 Ao V2 max: 193.1 cm/sec LV V1 max: 135.1 cm/sec PA V2 max: 95.2 cm/sec Ao max P.9 mmHg LV V1 max P.3 mmHg TR max isreal: 255.0 cm/sec TR max P.0 mmHg Interpretation Summary The estimated ejection fraction is 65 %. Stage 2 diastolic dysfunction. Trivial mitral valve insufficiency. Ordering Physician: Cory Ibarra Referring Physician: ADAM BANEGAS Performed By: Shaye Ruiz RDCS, RVT
[2019-12-14 22:49] LABS: Partial Thromboplast Time 28.8 Seconds (24.1-36.2)
[2019-12-14] MEDS: Heparin Injection (Vial) 5,000 UNIT/ML VIAL 6000 UNIT IV (23:10)
[2019-12-14] MEDS: 0.9% Saline Lock 10 ML Syringe IV (23:12)
[2019-12-15] VITALS (13 sets, daily range): BP systolic 121–136; BP diastolic 60–72; PULSE 57–73; RESP 12–17; TEMP 36.4–37; O2SAT 92–99
--- NOTE | 2019-12-15 00:20 | CPS ---
pt did not want the hospitals cpap-just wanted to try a nc at 2 l/m for the night-nurse aware
--- NOTE | 2019-12-15 05:55 | VDUE_ITS ---
Reason For Study: swelling Right Proximal Right jugular vein is spontaneous, widely patent, phasic, with no intraluminal echogenicity noted. Right subclavian vein is spontaneous, widely patent, phasic, with no intraluminal echogenicity noted. Right Lower Arm Right radial vein is compressible. Right ulnar vein is compressible. Right Arm Axillary V is partially compressible with decreased flow. DVT is hypoechoic. Right brachial vein is compressible. Right cephalic vein is compressible. Right basilic vein is compressible. Prelim called to the pt's RN. Interpretation Summary Right axillary partial DVT. Ordering Physician: Cory Ibarra Performed By: Michelet Mendez RVT ?
[2019-12-15] MEDS: Aspirin E.C. 81 MG Tablet PO (09:09)
[2019-12-15] MEDS: Triamterene 37.5MG/Hctz 25MG Capsule 1 CAP PO (09:10)
[2019-12-15] MEDS: amLODIPine 10 MG Tablet PO (09:10)
[2019-12-15] MEDS: Pantoprazole Sodium 40 MG Tablet PO (09:10)
[2019-12-15] MEDS: Metoprolol(XL)Succ 50 MG Tablet PO (09:10)
[2019-12-15] MEDS: Clopidogrel Bisulfate 75 MG Tablet PO (09:10)
[2019-12-15] MEDS: Acetaminophen 325 MG Tablet 650 MG PO ×2 (09:11→20:39)
[2019-12-15 12:07] LABS: Partial Thromboplast Time 51.8 Seconds (24.1-36.2)
--- NOTE | 2019-12-15 12:17 | PCM.PN.HOSP ---
<Brian Barber - Last Filed: 12/15/19 12:17> Patient Problems: Active and Suspected Problems (Last Reviewed 12/14/19 @ 22:[address] Cory Ibarra MD) Thoracic outlet syndrome (Acute) Reason for Visit: right arm edema Subjective: ongoing RUE edema. No loss of sensation or cold extremity. No loss of ROM. Ongoing right shoulder pain with lifting the left arm. No SOB. No LE edema. No LH/dizziness. Vitals/I&O's: Vital Signs Temp Pulse Resp BP Pulse Ox 97.5 F L 69 12 129/71 H 94 12/15/19 07:54 12/15/19 09:10 12/15/19 07:54 12/15/19 07:54 12/15/19 07:54 Oxygen Flow Rate (L/min) 2 Oxygen Delivery Method Room Air Weight: 185 lb 10.067 oz Body Mass Index (BMI) 31.8 Intake and Output for Last 24 Hours 12/13/19 12/14/19 12/15/19 23:59 23:59 23:59 Intake Total 0 / 0 766.6 / 766.6 Balance 0 / 0 766.6 / 766.6 General: Alert, Oriented x3, Cooperative HEENT: Atraumatic, PERRLA, EOMI, Normocephalic Neck: Supple, No JVD, Negative Carotid Bruits Lungs: Clear to auscultation, Normal air movement Cardiovascular: Regular rate, No murmurs Abdomen: Bowel Sounds Present, Soft, Non Tender Extremities: No edema, Capillary Refill Less than 3 Seconds Skin: No rashes, No breakdown Musculoskeletal: No Tenderness to Palpation of Joints or Extremities Neurological: Cranial nerves II-XII grossly intact Psych/Mental Status: Normal Affect, Appropriate, Alert and oriented to time, place, person, mood and affect Laboratory Results 12/14/19 18:59: WBC 7.2, RBC 4.20, Hgb 11.7 L, Hct 37.4, MCV 89.0, MCH 27.9, MCHC 31.3 L, RDW Std Deviation 45.1 H, RDW Coeff of Matthew 14.0, Plt Count 318, MPV 10.5, Immature Gran % (Auto) 0.400, Neut % (Auto) 76.4 H, Lymph % (Auto) 12.1 L, Grand % (Auto) 7.9, Eos % (Auto) 2.6, Baso % (Auto) 0.6, Absolute Neuts (auto) 5.5, Absolute Lymphs (auto) 0.87, Nucleated RBC % 0 12/14/19 18:59: D-Dimer Quant (PE/DVT) 0.79 H* 12/14/19 18:59: Sodium 140, Potassium 4.0, Chloride 108 H, Carbon Dioxide 28.0, Anion Gap 4 L, BUN 22 H, Creatinine 0.84, Estim Creat Clear Calc 57.66, Est GFR (MDRD) Af Amer 88, Est GFR (MDRD) Non-Af 72, BUN/Creatinine Ratio 26.3 H, Glucose 164 H, Calcium 9.1, Troponin I < 0.015 12/14/19 18:59: B-Natriuretic Peptide 28.7 12/14/19 18:59: PT 13.0, INR 1.0, APTT 28.8 12/15/19 00:10: Troponin I < 0.015 12/15/19 03:10: Troponin I < 0.015 12/15/19 03:10: APTT Cancelled 12/15/19 05:22: APTT 82.0 H 12/15/19 11:47: APTT 51.8 H Current Medications Acetaminophen (Tylenol) 650 mg PO Q6H PRN PRN PRN Reason: Pain Score 1-10/Temp > 100.7 F Last Admin: 12/15/19 09:11 Dose: 650 mg Documented by: Albuterol Sulfate (Ventolin Aerosols) 2.5 mg INHALATION Q2H PRN PRN PRN Reason: SOB/Wheezing Amlodipine Besylate (Norvasc) 10 mg PO DAILY [facility] Last Admin: 12/15/19 09:10 Dose: 10 mg Documented by: Aspirin (Ecotrin) 81 mg PO DAILY@0800 [facility] Last Admin: 12/15/19 09:09 Dose: 81 mg Documented by: Clopidogrel Bisulfate (Plavix) 75 mg PO DAILY [facility] Last Admin: 12/15/19 09:10 Dose: 75 mg Documented by: Heparin Sodium (Porcine) (Heparin Na) 0 unit IV UD PRN; Protocol PRN Reason: dose adjustment Clindamycin Phosphate 600 mg/ (Dextrose) 54 mls @ 100 mls/hr IV Q8 [facility] Last Infusion: 12/15/19 05:38 Dose: Infused Documented by: Heparin Sodium/Sodium Chloride () 25,000 unit in 250 mls @ 12 mls/hr IV .[id number] [facility]; Protocol Last Titration: 12/15/19 05:48 Dose: 1,100 units/hr, 11 mls/hr Documented by: Sodium Chloride () 250 mls @ 15 mls/hr IV .[id number] PRN PRN Reason: Saline Flush Sodium Chloride () 250 mls @ 15 mls/hr IV .[id number] PRN PRN Reason: Additional IVPB Infusion Meclizine HCl (Antivert) 25 - 50 mg PO DAILY PRN PRN PRN Reason: Vertigo Melatonin (Melatonin) 3 mg PO QHS PRN PRN PRN Reason: INSOMNIA Metoprolol Succinate (Toprol Xl (Beta Mal)) 50 mg PO DAILY [facility] Last Admin: 12/15/19 09:10 Dose: 50 mg Documented by: Morphine Sulfate () 2 mg IV Q3H PRN PRN PRN Reason: Pain Score 6-10/10 Ondansetron HCl (Zofran) 4 mg IV Q8H PRN PRN PRN Reason: NAUSEA/VOMITING Pantoprazole Sodium (Protonix) 40 mg PO DAILY [facility] Last Admin: 12/15/19 09:10 Dose: 40 mg Documented by: Potassium Chloride (K-Dur) [facility] Last Admin: 12/15/19 09:10 Dose: 10 meq Documented by: Sodium Chloride () 10 - 40 ml IV UD PRN PRN Reason: SALINE FLUSH Last Admin: 12/14/19 23:12 Dose: 10 ml Documented by: Triamterene/HCTZ (Dyazide (G)) 1 cap PO DAILY [facility] Last Admin: 12/15/19 09:10 Dose: 1 cap Documented by: STROKE Vital Signs/Narrative: Vital Signs Pulse 12/15/19 09:10 69 Medical Necessity - Tobacco Use Smoking Status: Never smoker Assessment/Plan All Active Problems (Last Reviewed 12/14/19 @ 22:[address] Cory Ibarra MD) Thoracic outlet syndrome (Acute) Chest pain (Acute) 1. Right shoulder pain - CTA neg. RUE US pending. D dimer elevated. Continue heparin. Trop neg. BNP neg. Vascular consulted. Pt is on clindamycin as there was concern for superimposed infection. No fever/leukocytosis. 2. Thoracic outlet syndrome - s/p stent placement per Dr. Suresh about 1 month prior. Continue asa/plavix. 3. HTN - mildly elevated. home meds continued. 4. Chronic vertigo - meclizine. DVT ppx: heparin This patient was seen by Brian Barber PA-C under the supervision of Dr. Fulton. <Yunior Fulton - Last Filed: 12/15/19 13:58> Vitals/I&O's: Vital Signs Temp Pulse Resp BP Pulse Ox 37.0 C 71 12 136/71 H 92 12/15/19 13:51 12/15/19 13:51 12/15/19 13:51 12/15/19 13:51 12/15/19 13:51 Oxygen Flow Rate (L/min) 2 Oxygen Delivery Method Room Air Weight: 84.2 kg Body Mass Index (BMI) 31.8 Intake and Output for Last 24 Hours 12/13/19 12/14/19 12/15/19 23:59 23:59 23:59 Intake Total 0 / 0 839.02 / 839.02 Balance 0 / 0 839.02 / 839.02 General: Alert, Cooperative HEENT: Atraumatic, Normocephalic Lungs: Clear to auscultation, Normal air movement Cardiovascular: Regular rate, No murmurs Abdomen: Bowel Sounds Present, Soft, Non Tender Extremities: Capillary Refill Less than 3 Seconds, No Calf Tenderness, Edema - right upper extremity, Peripheral Pulses Normal Skin: No rashes, No breakdown Musculoskeletal: - Psych/Mental Status: Normal Affect, Appropriate Laboratory Results 12/14/19 18:59: WBC 7.2, RBC 4.20, Hgb 11.7 L, Hct 37.4, MCV 89.0, MCH 27.9, MCHC 31.3 L, RDW Std Deviation 45.1 H, RDW Coeff of Matthew 14.0, Plt Count 318, MPV 10.5, Immature Gran % (Auto) 0.400, Neut % (Auto) 76.4 H, Lymph % (Auto) 12.1 L, Grand % (Auto) 7.9, Eos % (Auto) 2.6, Baso % (Auto) 0.6, Absolute Neuts (auto) 5.5, Absolute Lymphs (auto) 0.87, Nucleated RBC % 0 12/14/19 18:59: D-Dimer Quant (PE/DVT) 0.79 H* 12/14/19 18:59: Sodium 140, Potassium 4.0, Chloride 108 H, Carbon Dioxide 28.0, Anion Gap 4 L, BUN 22 H, Creatinine 0.84, Estim Creat Clear Calc 57.66, Est GFR (MDRD) Af Amer 88, Est GFR (MDRD) Non-Af 72, BUN/Creatinine Ratio 26.3 H, Glucose 164 H, Calcium 9.1, Troponin I < 0.015 12/14/19 18:59: B-Natriuretic Peptide 28.7 12/14/19 18:59: PT 13.0, INR 1.0, APTT 28.8 12/15/19 00:10: Troponin I < 0.015 12/15/19 03:10: Troponin I < 0.015 12/15/19 03:10: APTT Cancelled 12/15/19 05:22: APTT 82.0 H 12/15/19 11:47: APTT 51.8 H Current Medications Acetaminophen (Tylenol) 650 mg PO Q6H PRN PRN PRN Reason: Pain Score 1-10/Temp > 100.7 F Last Admin: 12/15/19 09:11 Dose: 650 mg Documented by: Albuterol Sulfate (Ventolin Aerosols) 2.5 mg INHALATION Q2H PRN PRN PRN Reason: SOB/Wheezing Amlodipine Besylate (Norvasc) 10 mg PO DAILY [facility] Last Admin: 12/15/19 09:10 Dose: 10 mg Documented by: Aspirin (Ecotrin) 81 mg PO DAILY@0800 [facility] Last Admin: 12/15/19 09:09 Dose: 81 mg Documented by: Clopidogrel Bisulfate (Plavix) 75 mg PO DAILY [facility] Last Admin: 12/15/19 09:10 Dose: 75 mg Documented by: Heparin Sodium (Porcine) (Heparin Na) 0 unit IV UD PRN; Protocol PRN Reason: dose adjustment Last Admin: 12/15/19 12:23 Dose: 1,000 unit Documented by: Clindamycin Phosphate 600 mg/ (Dextrose) 54 mls @ 100 mls/hr IV Q8 [facility] Last Admin: 12/15/19 13:53 Dose: 100 mls/hr Documented by: Heparin Sodium/Sodium Chloride () 25,000 unit in 250 mls @ 12 mls/hr IV .[id number] [facility]; Protocol Last Titration: 12/15/19 12:23 Dose: 1,200 units/hr, 12 mls/hr Documented by: Sodium Chloride () 250 mls @ 15 mls/hr IV .[id number] PRN PRN Reason: Saline Flush Sodium Chloride () 250 mls @ 15 mls/hr IV .[id number] PRN PRN Reason: Additional IVPB Infusion Meclizine HCl (Antivert) 25 - 50 mg PO DAILY PRN PRN PRN Reason: Vertigo Melatonin (Melatonin) 3 mg PO QHS PRN PRN PRN Reason: INSOMNIA Metoprolol Succinate (Toprol Xl (Beta Mal)) 50 mg PO DAILY [facility] Last Admin: 12/15/19 09:10 Dose: 50 mg Documented by: Morphine Sulfate () 2 mg IV Q3H PRN PRN PRN Reason: Pain Score 6-10/10 Ondansetron HCl (Zofran) 4 mg IV Q8H PRN PRN PRN Reason: NAUSEA/VOMITING Pantoprazole Sodium (Protonix) 40 mg PO DAILY [facility] Last Admin: 12/15/19 09:10 Dose: 40 mg Documented by: Potassium Chloride (K-Dur) 10 meq PO DAILYCM [facility] Last Admin: 12/15/19 09:10 Dose: 10 meq Documented by: Sodium Chloride () 10 - 40 ml IV UD PRN PRN Reason: SALINE FLUSH Last Admin: 12/14/19 23:12 Dose: 10 ml Documented by: Triamterene/HCTZ (Dyazide (G)) 1 cap PO DAILY [facility] Last Admin: 12/15/19 09:10 Dose: 1 cap Documented by: STROKE Vital Signs/Narrative: Vital Signs Temp Pulse Resp BP Pulse Ox 12/15/19 13:51 37.0 C 71 12 136/71 H 92 Assessment/Plan Patient seen and examined independently. Data reviewed. I agree with the above note by the physician drafter assistant. 1. right shoulder pain: reproducible. concern for involvement from recent surgery. However, I am more concerned that this costochondritis 2. thoracic outlet syndrome: s/p stent placement by Dr. Suresh. Dr. Suresh on consult. Inpatient E&M: 86834 Subs Hosp L2
[2019-12-15] MEDS: Heparin Injection (Vial) 5,000 UNIT/ML VIAL IV ×2 (12:23→18:40)
--- NOTE | 2019-12-15 13:28 | CASEMGMT ---
EDENILSON CORDOVA assessment: Face to Face with patient for initial transition planning/care coordination assessment. RN ART introduced self and role at [facility], pt voices understanding and consents to assessment at this time. Pt is lying in bed in no distress at this time. Pt is A/Ox4 at this time and answers all questions appropriately at this time. Pt's daughter, Velma Anne, is at bedside during assessment. Care providers, pharmacy, and demographics verified at this time. Presentation: Pt had thoracic outlet surgery on 10/26/2019 and pt c/o swelling to right arm/shoulder with pain into chest, SOB Admitting dx: Thoracic outlet syndrome PCP: Roberto Specialists: Noé pulleticia; Demetrice vasc; coy Gauthier [facility] Insurance: MARTIN A/B, Stephie(not listed on demographics but daughter states pt has been paying OOP)-pt states she received a letter stating she now qualifies for Medicaid but wasn't sure if it was for real. Call to Tami in registration and she states that pt does have MCR A/B, ERNST at this time. Pt/daughter updated at this time and state they will check into all once home. Prescription Benefit: Yes Living Will/HPOA: Pt states has LW/HPOA and is aware that they are not on file at [facility] at this time. Pt states her daugher, Velma Anne, is HPOA. LNOK: Velma Anne, daughter/HPOA; Estefania Mosley, daughter Living Arrangements: Pt lives with daughter and son-in-law on main level of 2 story home and states no concerns at home at this time. Pt states is independent with ADL's. Transportation: Pt states drives self and states no transportation concerns at this time. DME/HHC: Pt states has the following DME: cane, walker, w/c, shower chair, and cpap thru [employer]. Pt states no need for any further DME at this time. Pt states has had HHC in the past for therapy but states has not been to SNF. Pt states no concerns with going home at time of discharge. 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 Pt states does not smoke cigarettes or drink ETOH. Pt states no further concerns/needs at this time. CM to follow for any further discharge planning/needs. Advised pt to ask for CM if any further questions/concerns/needs arise, voices understanding. Pt Goal: Home Plan: Home SStbrianna PYLE CM
[2019-12-15] MEDS: Morphine 2 MG/ML Syringe IV (14:26)
[2019-12-15] MEDS: 0.9% Saline Lock 10 ML Syringe IV (14:27)
[2019-12-15 18:23] LABS: Partial Thromboplast Time 48.2 Seconds (24.1-36.2)
[2019-12-16] VITALS (7 sets, daily range): BP systolic 136–139; BP diastolic 66–71; PULSE 62–88; RESP 14–18; TEMP 36.6–36.7; O2SAT 91–95
[2019-12-16 00:11] LABS: Partial Thromboplast Time 55.3 Seconds (24.1-36.2)
[2019-12-16] MEDS: Acetaminophen 325 MG Tablet 650 MG PO (05:41)
[2019-12-16] MEDS: Aspirin E.C. 81 MG Tablet PO (08:23)
[2019-12-16] MEDS: Triamterene 37.5MG/Hctz 25MG Capsule 1 CAP PO (09:57)
[2019-12-16] MEDS: Clopidogrel Bisulfate 75 MG Tablet PO (09:57)
[2019-12-16] MEDS: Pantoprazole Sodium 40 MG Tablet PO (09:58)
[2019-12-16] MEDS: Metoprolol(XL)Succ 50 MG Tablet PO (09:58)
[2019-12-16] MEDS: amLODIPine 10 MG Tablet PO (09:58)
--- NOTE | 2019-12-16 13:19 | DCINST_ITS ---
- Discharge Diagnoses Current Active Problems: Current Active and Chronic Problems (Last Reviewed 12/14/19 @ 22:[address] Cory Ibarra MD) Thoracic outlet syndrome (Acute) You will use the following diet at home:: Cardiac Your food should be the consistency of: Regular Your liquids should be the consistency of: Regular/Thin Discharge Activity: Return to Normal Activity Allergies/Adverse Reactions: Allergies No Known Allergies Allergy (Verified 12/14/19 18:36) Medications to take at Discharge amlodipine 10 mg tablet 10 mg PO DAILY 01/07/18 metoprolol succinate 50 mg tablet,extended release 24 hr 50 mg PO DAILY 01/07/18 triamterene 37.5 mg-hydrochlorothiazide 25 mg capsule 1 cap PO DAILY 01/07/18 potassium chloride 10 mEq tablet,extended release 10 meq PO DAILY #30 tab Aspirin [Low Dose Aspirin EC] 81 mg PO DAILY 12/14/19 Clopidogrel Bisulfate [Clopidogrel] 75 mg PO DAILY 12/14/19 Omeprazole 40 mg PO DAILY 12/14/19 Apixaban [Eliquis] 5 mg PO BID #74 tab 12/16/19 The following prescriptions were given: Apixaban [Eliquis] 5 mg PO BID #74 tab Transmission Status: Pending to [id number] Primary Care Physician: Madeleine Mejia DO [Primary Care Provider] - Please follow up with your Primary Care Physician in: 1-2 weeks Test Results: Test results from this visit will be discussed in further detail at your follow- up appointment, if applicable. Please Follow Up With: Archie Suresh MD When: 1 week Proposed Discharge Date: 12/16/19
--- NOTE | 2019-12-16 13:21 | DS.PCM_ITS ---
<Brian Barber - Last Filed: 12/16/19 13:21> Discharge Date and Diagnosis - Problem List Patient Problems: Active and Suspected Problems (Last Reviewed 12/14/19 @ 22:[address] Cory Ibarra MD) Thoracic outlet syndrome (Acute) Date of Admission: 12/14/19 Date of Discharge: 12/16/19 - Primary Discharge Diagnosis Acute Problems: Active Problems (Last Reviewed 12/14/19 @ 22:[address] Cory Ibarra MD) DVT right axillary vein Thoracic outlet syndrome with recent stent - Secondary Discharge Diagnosis Chronic Problems: Chronic Problems (Last Reviewed 12/14/19 @ 22:[address] Cory Ibarra MD) BMI 30.0-30.9,adult (Chronic) DERICK (obstructive sleep apnea) (Chronic) Overall AHI 63 events per hour History of left heart catheterization (Chronic 03/19/18) Normal coronaries, normal LV Hyperlipidemia (Chronic) Essential hypertension (Chronic) Vertigo (Chronic) Hospital Course and Treatment Consults: Demetrice - Vascular Surgery Operations: None Procedures: None Summary of Care Provided: Hospital Course: The patient is a 64 year old F with pmhx notable for thoracic outlet syndrome for which Dr. Suresh had performed stenting approximately 1 month prior who presented to the ER with right upper extremity swelling and right shoulder pain. She did not have any loss of sensation or loss of warmth to the area and ROM remained intact. The patient was placed on heparin drip with concern for underlying DVT. She had no fever or leukocytosis. She was admitted to the PCU and a consult was placed to Dr. Suresh. She underwent a venous duplex showing partially compressible axillary vein, which was faxed to Dr. Suresh's office. Dr. Suresh felt that she would eventually need a thrombolysis and ballooning, however that this would be set up as an outpatient to be performed in [place]. He recommended that at this time she be anticoagulated with oral medication and discharged home with close follow up in the office. She was given an Rx for Eliquis. She was discharged home in stable condition. She will follow up with Dr. Suresh in 1 week and with PCP in 1-2 weeks. This patient was seen by Brian Barber PA-C under the supervision of Doctor Kirstin. [] Patient Problems: Active and Suspected Problems (Last Reviewed 12/14/19 @ 22:[address] Cory Ibarra MD) Thoracic outlet syndrome (Acute) - Physical Exam Vitals/I&O's: Vital Signs Temp Pulse Resp BP Pulse Ox 98.1 F 66 18 139/70 H 91 12/16/19 11:56 12/16/19 11:56 12/16/19 11:56 12/16/19 11:56 12/16/19 07:59 Oxygen Flow Rate (L/min) 2 Oxygen Delivery Method Room Air Weight: 187 lb 13.341 oz Body Mass Index (BMI) 31.8 Intake and Output for Last 24 Hours 12/14/19 12/15/19 12/16/19 23:59 23:59 23:59 Intake Total 0 / 0 1765.80 / 1765.80 514 / 514 Balance 0 / 0 1765.80 / 1765.80 514 / 514 General: Alert, Oriented x3, Cooperative HEENT: Atraumatic, PERRLA, EOMI, Normocephalic Neck: Supple, No JVD, Negative Carotid Bruits Lungs: Clear to auscultation, Normal air movement Cardiovascular: Regular rate, No murmurs Abdomen: Bowel Sounds Present, Soft, Non Tender Extremities: No edema, Capillary Refill Less than 3 Seconds Skin: No rashes, No breakdown Musculoskeletal: No Tenderness to Palpation of Joints or Extremities Neurological: Cranial nerves II-XII grossly intact Psych/Mental Status: Normal Affect, Appropriate, Alert and oriented to time, place, person, mood and affect Laboratory Results 12/15/19 17:58: APTT 48.2 H 12/15/19 23:45: APTT 55.3 H 12/16/19 05:45: APTT 56.0 H Current Medications Acetaminophen (Tylenol) 650 mg PO Q6H PRN PRN PRN Reason: Pain Score 1-10/Temp > 100.7 F Last Admin: 12/16/19 05:41 Dose: 650 mg Documented by: Albuterol Sulfate (Ventolin Aerosols) 2.5 mg INHALATION Q2H PRN PRN PRN Reason: SOB/Wheezing Amlodipine Besylate (Norvasc) 10 mg PO DAILY [facility] Last Admin: 12/16/19 09:58 Dose: 10 mg Documented by: Aspirin (Ecotrin) 81 mg PO DAILY@0800 [facility] Last Admin: 12/16/19 08:23 Dose: 81 mg Documented by: Clopidogrel Bisulfate (Plavix) 75 mg PO DAILY [facility] Last Admin: 12/16/19 09:57 Dose: 75 mg Documented by: Heparin Sodium (Porcine) (Heparin Na) 0 unit IV UD PRN; Protocol PRN Reason: dose adjustment Last Admin: 12/15/19 18:40 Dose: 1,000 unit Documented by: Clindamycin Phosphate 600 mg/ (Dextrose) 54 mls @ 100 mls/hr IV Q8 [facility] Last Infusion: 12/16/19 06:25 Dose: Infused Documented by: Heparin Sodium/Sodium Chloride () 25,000 unit in 250 mls @ 12 mls/hr IV .[id number] [facility]; Protocol Last Admin: 12/15/19 20:28 Dose: 1,300 units/hr, 13 mls/hr Documented by: Sodium Chloride () 250 mls @ 15 mls/hr IV .[id number] PRN PRN Reason: Saline Flush Sodium Chloride () 250 mls @ 15 mls/hr IV .[id number] PRN PRN Reason: Additional IVPB Infusion Meclizine HCl (Antivert) 25 - 50 mg PO DAILY PRN PRN PRN Reason: Vertigo Melatonin (Melatonin) 3 mg PO QHS PRN PRN PRN Reason: INSOMNIA Metoprolol Succinate (Toprol Xl (Beta Mal)) 50 mg PO DAILY [facility] Last Admin: 12/16/19 09:58 Dose: 50 mg Documented by: Morphine Sulfate () 2 mg IV Q3H PRN PRN PRN Reason: Pain Score 6-10/10 Last Admin: 12/15/19 14:26 Dose: 2 mg Documented by: Ondansetron HCl (Zofran) 4 mg IV Q8H PRN PRN PRN Reason: NAUSEA/VOMITING Pantoprazole Sodium (Protonix) 40 mg PO DAILY [facility] Last Admin: 12/16/19 09:58 Dose: 40 mg Documented by: Potassium [facility] ([facility] Last Admin: 12/16/19 08:24 Dose: 10 meq Documented by: Sodium Chloride () 10 - 40 ml IV UD PRN PRN Reason: SALINE FLUSH Last Admin: 12/15/19 14:27 Dose: 10 ml Documented by: Triamterene/HCTZ (Dyazide (G)) 1 cap PO DAILY [facility] Last Admin: 12/16/19 09:57 Dose: 1 cap Documented by: Discharge Diet: Low fat/ Low Cholesterol, 2000 mg Sodium Diet Discharge Activity: Return to Normal Activity Home Medications: Medications to take at Discharge amlodipine 10 mg tablet 10 mg PO DAILY 01/07/18 metoprolol succinate 50 mg tablet,extended release 24 hr 50 mg PO DAILY 01/07/18 triamterene 37.5 mg-hydrochlorothiazide 25 mg capsule 1 cap PO DAILY 01/07/18 potassium chloride 10 mEq tablet,extended release 10 meq PO DAILY #30 tab 02/09/19 Aspirin [Low Dose Aspirin EC] 81 mg PO DAILY 12/14/19 Clopidogrel Bisulfate [Clopidogrel] 75 mg PO DAILY 12/14/19 Omeprazole 40 mg PO DAILY 12/14/19 Apixaban [Eliquis] 5 mg PO BID #74 tab 12/16/19 Following Prescriptions Were Given to Patient: Apixaban [Eliquis] 5 mg PO BID #74 tab Transmission Status: Received by [facility] #[id number] Primary Care Physician: Madeleine Mejia DO [Primary Care Provider] - Please follow up with your Primary Care Physician in: 1-2 weeks Please Follow Up With: Archie Suresh MD When: 1 week Disposition: Home Minutes spent on discharge:: 35 Patient Condition:: Stable Medical Necessity - Tobacco Use Smoking Status: Never smoker Meaningful Use Info Meaningful Use Diagnoses (Choose all that apply): VTE - VTE Anticoag overlap given w/in hospital stay or rx'd at dc?: Yes Pt receive overlap for 5 days?: No Reason overlap not ordered, prescribed, or given for 5 days: Procedure Not Indicated <Yunior Fulton - Last Filed: 12/16/19 14:17> Discharge Date and Diagnosis - Primary Discharge Diagnosis Acute Problems: Active Problems (Last Reviewed 12/14/19 @ 22:[address] Cory Ibarra MD) Thoracic outlet syndrome (Acute) - Secondary Discharge Diagnosis Chronic Problems: Chronic Problems (Last Reviewed 12/14/19 @ 22:[address] Cory Ibarra MD) BMI 30.0-30.9,adult (Chronic) DERICK (obstructive sleep apnea) (Chronic) Overall AHI 63 events per hour History of left heart catheterization (Chronic 03/19/18) Normal coronaries, normal LV Hyperlipidemia (Chronic) Essential hypertension (Chronic) Vertigo (Chronic) Hospital Course and Treatment Operations: None Procedures: None Summary of Care Provided: Patient seen and examined independently. Data reviewed. I agree with the above note by the physician plumber assistant. The patient is a 64 year old F presents with back pain. Patient had CAT scan of her chest that showed no pulmonary embolism or dissection. Showing a duplex that showed an axillary vein clot. Dr. Suresh was notified and recommend anticoagulation at this time and would need eventual thrombolysis and ballooning but they will be done as outpatient in [place]. [] - Physical Exam Vitals/I&O's: Vital Signs Temp Pulse Resp BP Pulse Ox 36.7 C 66 18 139/70 H 91 12/16/19 11:56 12/16/19 11:56 12/16/19 11:56 12/16/19 11:56 12/16/19 07:59 Oxygen Flow Rate (L/min) 2 Oxygen Delivery Method Room Air Weight: 85.2 kg Body Mass Index (BMI) 31.8 Intake and Output for Last 24 Hours 12/14/19 12/15/19 12/16/19 23:59 23:59 23:59 Intake Total 0 / 0 1765.80 / 1765.80 514 / 514 Balance 0 / 0 1765.80 / 1765.80 514 / 514 General: Alert, Cooperative HEENT: Atraumatic, Normocephalic Lungs: Clear to auscultation, Normal air movement Cardiovascular: Regular rate, No murmurs Abdomen: Bowel Sounds Present, Soft, Non Tender Skin: No rashes, No breakdown Laboratory Results 12/15/19 17:58: APTT 48.2 H 12/15/19 23:45: APTT 55.3 H 12/16/19 05:45: APTT 56.0 H Current Medications Acetaminophen (Tylenol) 650 mg PO Q6H PRN PRN PRN Reason: Pain Score 1-10/Temp > 100.7 F Last Admin: 12/16/19 05:41 Dose: 650 mg Documented by: Albuterol Sulfate (Ventolin Aerosols) 2.5 mg INHALATION Q2H PRN PRN PRN Reason: SOB/Wheezing Amlodipine Besylate (Norvasc) 10 mg PO DAILY [facility] Last Admin: 12/16/19 09:58 Dose: 10 mg Documented by: Aspirin (Ecotrin) 81 mg PO DAILY@0800 [facility] Last Admin: 12/16/19 08:23 Dose: 81 mg Documented by: Clopidogrel Bisulfate (Plavix) 75 mg PO DAILY [facility] Last Admin: 12/16/19 09:57 Dose: 75 mg Documented by: Heparin Sodium (Porcine) (Heparin Na) 0 unit IV UD PRN; Protocol PRN Reason: dose adjustment Last Admin: 12/15/19 18:40 Dose: 1,000 unit Documented by: Clindamycin Phosphate 600 mg/ (Dextrose) 54 mls @ 100 mls/hr IV Q8 [facility] Last Admin: 12/16/19 13:58 Dose: 100 mls/hr Documented by: Heparin Sodium/Sodium Chloride () 25,000 unit in 250 mls @ 12 mls/hr IV .[id number] [facility]; Protocol Last Admin: 12/15/19 20:28 Dose: 1,300 units/hr, 13 mls/hr Documented by: Sodium Chloride () 250 mls @ 15 mls/hr IV .[id number] PRN PRN Reason: Saline Flush Sodium Chloride () 250 mls @ 15 mls/hr IV .[id number] PRN PRN Reason: Additional IVPB Infusion Meclizine HCl (Antivert) 25 - 50 mg PO DAILY PRN PRN PRN Reason: Vertigo Melatonin (Melatonin) 3 mg PO QHS PRN PRN PRN Reason: INSOMNIA Metoprolol Succinate (Toprol Xl (Beta Mal)) 50 mg PO DAILY [facility] Last Admin: 12/16/19 09:58 Dose: 50 mg Documented by: Morphine Sulfate () 2 mg IV Q3H PRN PRN PRN Reason: Pain Score 6-10/10 Last Admin: 12/15/19 14:26 Dose: 2 mg Documented by: Ondansetron HCl (Zofran) 4 mg IV Q8H PRN PRN PRN Reason: NAUSEA/VOMITING Pantoprazole Sodium (Protonix) 40 mg PO DAILY [facility] Last Admin: 12/16/19 09:58 Dose: 40 mg Documented by: Potassium Chloride (K-Dur) 10 meq PO DAILYCM [facility] Last Admin: 12/16/19 08:24 Dose: 10 meq Documented by: Sodium Chloride () 10 - 40 ml IV UD PRN PRN Reason: SALINE FLUSH Last Admin: 12/15/19 14:27 Dose: 10 ml Documented by: Triamterene/HCTZ (Dyazide (G)) 1 cap PO DAILY [facility] Last Admin: 12/16/19 09:57 Dose: 1 cap Documented by: Discharge Diet: Low fat/ Low Cholesterol, 2000 mg Sodium Diet Discharge Activity: Return to Normal Activity Disposition: Home Minutes spent on discharge:: 35 Medical Necessity - Tobacco Use Smoking Status: Never smoker Meaningful Use Info Meaningful Use Diagnoses (Choose all that apply): VTE - VTE Anticoag overlap given w/in hospital stay or rx'd at dc?: Yes Pt receive overlap for 5 days?: No Reason overlap not ordered, prescribed, or given for 5 days: Procedure Not Indicated Inpatient E&M: [id number] Disch Hosp
--- NOTE | 2019-12-16 14:09 | CASEMGMT ---
Pt to be sent home on Eliquis at discharge and med e-scribed to [facility] in [place] previously. Call to [facility] and tech provided with [facility] policy number at this time but system states pt needs it run through [facility] initially and states co-pay is $3.90 at this time. Pt/daughter updated on all at this time, voice understanding and voice no further questions/concerns/needs at this time. Pt awaiting discharge. Suzanne PYLE CM
--- NOTE | 2019-12-16 15:03 | NURSING ---
Read and reviewed SN documentation
== END 2019-12-16 15:57 | disposition home or self-care (01) | DRG 74 ==
LOC: ED 19:06 → PCU 12-15 07:08
PROVIDERS: Admitting Provider Hospitalist; Emergency Provider Emergency Medicine; PCP Family Medicine
DX: G54.0 Brachial plexus disorders (principal); I82.A11 Acute embolism and thrombosis of right axillary vein; J44.9 Chronic obstructive pulmonary disease, unspecified; I10 Essential (primary) hypertension; E78.5 Hyperlipidemia, unspecified; Z79.899 Other long term (current) drug therapy; Z79.02 Long term (current) use of antithrombotics/antiplatelets; R07.9 Chest pain, unspecified; Z79.82 Long term (current) use of aspirin; G47.33 Obstructive sleep apnea (adult) (pediatric); Z68.32 Body mass index [BMI] 32.0-32.9, adult; E66.9 Obesity, unspecified; R42 Dizziness and giddiness
CPT/HCPCS: 36415; 71045; 71275; 80048; 83880; 84484; 85025; 85379; 85610; 85730; 93005; 93306; 93971; 99285; Q9967; A4216; J2405

== ENCOUNTER → 2019-12-21 08:51 | Outpatient (CLI) | payer MEDICARE, BC, MEDICAID, SELFPAY ==
[2019-09-08 06:50] VITALS: BMI 31.8
[2019-12-14 22:39] VITALS: BMI 31.8
--- NOTE | 2019-12-21 08:59 | VDUE_ITS ---
Reason For Study: Rt arm pain Right Proximal Right jugular vein is spontaneous, widely patent, phasic, with no intraluminal echogenicity noted. Right subclavian vein is spontaneous, widely patent, phasic, with no intraluminal echogenicity noted. Right Lower Arm Right radial vein is compressible. Right ulnar vein is compressible. Right Arm Axillary V is partially compressible with decreased flow. DVT is hypoechoic. Vein is no longer dilated as compared to 12/15/2019. Right brachial vein is compressible. Right cephalic vein is compressible. Right basilic vein is compressible. Patient Safety Prelim to Demetrice. Interpretation Summary DVT right arm. Ordering Physician: Archie Suresh Referring Physician: Madeleine Mejia Performed By: Liz Garcia RVT ?
== END ==
PROVIDERS: PCP Family Medicine; Referring Provider Surgery Vascular Surgery; Visit Provider Surgery Vascular Surgery
DX: M79.601 Pain in right arm (principal); G54.0 Brachial plexus disorders; M79.609 Pain in unspecified limb; R60.9 Edema, unspecified
CPT/HCPCS: 93971

== ENCOUNTER → 2020-01-16 14:52 | Outpatient (CLI) | payer MEDICARE, BC, MEDICAID, SELFPAY ==
[2019-12-14 22:39] VITALS: BMI 31.8
--- NOTE | 2020-01-16 14:54 | CT_ITS ---
STUDY: CT CHEST WITH CONTRAST REASON FOR EXAM: Female, 64 years old. THORACIC OUTLET SYNDROME RADIATION DOSAGE (If Supplied By Facility): CTDIvol = ( 16.43 ) mGy, DLP = ( 1055.18 ) mGycm TECHNIQUE: Transaxial imaging was performed following intravenous administration of IV 100mL Isovue-300. Multiplanar coronal and sagittal images were reformatted. Individualized dose optimization techniques were used for this CT. COMPARISON: Comparison is made with prior study dated 12/14/2019. FINDINGS: A stent is seen in the right subclavian vein. The stent is occluded. A filling defect is seen within the right subclavian stent. Mild residual changes persist in the lungs although there has been a significant improvement of the aeration of both lungs. There is no demonstrated pleural abnormality. Normal heart and pericardium. Normal mediastinum. Normal hilar regions. Normal enhanced pulmonary arteries. Normal aorta arch and descending thoracic aorta. There are multi-level degenerative changes of the thoracic spine. There is no demonstrated abnormality of the visualized upper abdomen. CT/Chest WITH Contrast IMPRESSION: Occlusion of the stent seen in the proximal portion of the right subclavian vein Electronically Signed: Kimani De Oliveira, at 10:16 EST , Service support ,
== END ==
PROVIDERS: PCP Family Medicine; Referring Provider Surgery Vascular Surgery; Visit Provider Surgery Vascular Surgery
DX: G54.0 Brachial plexus disorders (principal); M79.609 Pain in unspecified limb; R60.9 Edema, unspecified
CPT/HCPCS: 71260; Q9967

== ENCOUNTER 2020-03-06 09:30 | Outpatient (RCR) | payer MEDICARE, BC, MEDICAID, SELFPAY ==
[2019-12-14 22:39] VITALS: BMI 31.8
[2020-02-20 15:08] VITALS: BMI 32.9
--- NOTE | 2020-02-23 09:24 | HP.OTEVAL_ITS ---
Patient's Visit Information LEXUS PEOPLES is a 65 year old F, referred to Occupational Therapy by Dr. Archie Suresh MD, with a diagnosis of brachial plexus disorders, edema right UE. Date of Evaluation: 02/21/20 Occupational Therapist: Jackie Menjivar, PENNYR/Bubba, CHT - Subjective This 65 year old female was seen for OT eval with dx of right brachial plexus disorder and edema. pt states she noticed edema in her hand/arm in August 2019. pt states swelling has. pt states pt had part of her rib removed and has two stints placed. pt states she noticed with drain tues her arm swelling had decreased but since they were removed pt states no change in swelling since her procedue. pt states she has been using a compression sleeve for about three months . 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 - Pain right UE 4 Pain Intensity Range: 4 - Lymphedema (Circumferential Measure) MCP: right 20.5cm left 19cm Wrist: right 20.5 left 17cm Lower forearm: right 28cm left 22cm Largest forearm: right 35cm left 27.5cm Elbow: right 33.5 left 28.5cm Largest humerus: right 37.5cm left 32cm Axcillary: right 39cm left 37cm - Quick DASH-Disab of Arm,Shoulder& Hand Quick DASH Score: 36.6650 - Goals Demonstrate a 20% reduction in edema by d/c: Yes Demonstrate adequate knowledge of self-bangaging by 1st week: Yes Demonstrate adequate knowledge of self-massage by 2nd week: Yes Demonstrate adequate knowledge skin care/prec by 2nd week: Yes Demonstrate adequate knowledge therapeutic exercises by d/c: Yes Select approp compression garment w/donning/care/wear by d/c: Yes Voice need to replace compression garment every 4-6mo by dc: Yes - Rehabilitation General Assessment: pt demo with sig, edema in right UE limiting use of right UE with ADls and IADL. pt would benefit from skilled OT services 2x week for 4 weeks to reduce right UE circumfrence and gain function for ADLs. Today therapist ed. pt edema mtg- with use of compression sleeve 20-30mmHg, and compression glove. Therapist ed. pt on skin care and precuations. Therapist ed. pt on self manual lymph drainage- and ROM ex to stimulate circulation- pt demo understanding and agree to POC Rehabilitation Potential: Good - Anticipated Interventions Education re assistive Equipment, Education re Diagnosis, Manual Lymph Drainage, Education re Life-long lymphedema Management, Education re Self-Bandaging Techniques, Education re Skin Care and Precautions, Education re Self Massage Techniques, Education re Correct Donning Tech,Care&Wearing Sched Comp Garments, Home Program - Visit Plan Frequency: 1-2x /Week Duration: 4 Weeks TEXT: Thank you for the opportunity to evaluate your patient. For Medicare and Medicare HMO plans, please review the plan of care and approve it. It will need to be FAXED BACK to us at [phone] for Medicare purposes. Please let me know if there are questions or concerns regarding this plan of care. Physician Signature: Date:
--- NOTE | 2020-03-06 10:29 | HP.OTREVAL ---
Dr. Archie Suresh MD, It has been my pleasure to treat LEXUS PEOPLES over the last 4 visits for brachial plexus disorders, edema right UE. Please see the progress note below for an update on the occupational therapy plan of care! Subjective: pt arrives with compression sleeve on 20-30 mmHg, and feels she is tolerating well- has a 30-40 mmHg but will try that next week when she can be home to remove it if it is uncomfortable. Objective/Function: right hand 20. wrist 18cm. lower forearm 27cm. forearm 33. elbow 31.5. Biceps 34. axillary 39. pt demo a reduction in fluid. pt demo min improvement with edema- pt is wearing a compression sleeve of 20-30 mmhg and performing self manual lymph drainage. pt may benefit from home compression pump to assist in mtg of right UE edema Plan Frequency: 1-2x /Week Duration: 4 Weeks Plan: cont with lymphapress. measurments Goals - Goals Demonstrate a 20% reduction in edema by d/c: Yes Demonstrate adequate knowledge of self-bangaging by 1st week: Yes Demonstrate adequate knowledge of self-massage by 2nd week: Yes Demonstrate adequate knowledge skin care/prec by 2nd week: Yes Demonstrate adequate knowledge therapeutic exercises by d/c: Yes Select approp compression garment w/donning/care/wear by d/c: Yes Voice need to replace compression garment every 4-6mo by dc: Yes Patient Goals: Learn how to Manage Lymphedema, Learn how to Apply Compression Stockings Anticipated Interventions Anticipated Interventions: Education re assistive Equipment, Education re Diagnosis, Manual Lymph Drainage, Education re Life-long lymphedema Management, Education re Self-Bandaging Techniques, Education re Skin Care and Precautions, Education re Self Massage Techniques, Education re Correct Donning Tech,Care&Wearing Sched Comp Garments, Home Program Please do not hesitate to contact me at [phone] by phone or if you have questions or concerns regarding this new plan of care! Sincerely, Jackie Menjivar, OTR/L, CHT
--- NOTE | 2020-05-22 14:30 | HP.OTDCNRP_ITS ---
LEXUS PEOPLES was seen in my office for initial evaluation on 02/21/20. The following Plan of Care was established for this patient: Initial Frequency: 1-2x /Week Initial Duration: 4 Weeks Plan: cont with lymphapress. measurments Anticipated Interventions: Education re assistive Equipment, Education re Diagnosis, Manual Lymph Drainage, Education re Life-long lymphedema Management, Education re Self-Bandaging Techniques, Education re Skin Care and Precautions, Education re Self Massage Techniques, Education re Correct Donning Tech,Care&Wearing Sched Comp Garments, Home Program This patient was last seen in our office 03/06/20. Pertinent comments regarding their Occupational therapy will appear below: pt was seen for 4 OT visit - therapist ed/ pt on compression gament for UE- and was in agreement with on pts need of compression pump for home use- therapi st gave info to communications consultant but at this time unaware if pt recived compression pump. pt d/c due to time lapse in services. At this point I will be discontinuing this patient from occupational therapy. I would be happy to see this patient again in the future if found appropriate by the physician. Thank you! Jackie Menjivar, OTR/L, CHT
== END 2020-03-06 19:00 | disposition home or self-care (01) ==
LOC: OT 09:30
PROVIDERS: PCP Family Medicine; Referring Provider Surgery Vascular Surgery; Visit Provider Surgery Vascular Surgery
DX: G54.0 Brachial plexus disorders (principal); R60.9 Edema, unspecified
CPT/HCPCS: 97110; 97166; 97530

== ENCOUNTER → 2020-05-09 09:53 | Outpatient (CLI) | payer MEDICARE, MEDICAID, SELFPAY ==
[2020-02-20 15:08] VITALS: BMI 32.9
--- NOTE | 2020-05-09 09:57 | VDUE_ITS ---
Reason For Study: Arm pain Right Proximal Right jugular vein is spontaneous, widely patent, phasic, with no intraluminal echogenicity noted. Acute deep vein thrombosis is noted in the right subclavian vein at origin of cephalic vein. Right Lower Arm Right radial vein is compressible. Right ulnar vein is compressible. Right Arm Right axillary vein is spontaneous, patent, phasic, competent, compressible and demonstrates augmentation. Right brachial vein is compressible. Acute superficial vein thrombosis is noted in the right cephalic vein at the origin, extending into the subclavian vein. Right basilic vein is compressible. Patient Safety Prelim to Sheree. Interpretation Summary Acute SVt cephalic vein with extension into subclavian vein. Ordering Physician: Archie Suresh Referring Physician: Madeleine Mejia Performed By: Liz Garcia RVT ?
== END ==
PROVIDERS: PCP Family Medicine; Referring Provider Surgery Vascular Surgery; Visit Provider Surgery Vascular Surgery
DX: G54.0 Brachial plexus disorders (principal); R60.9 Edema, unspecified; M79.609 Pain in unspecified limb
CPT/HCPCS: 93971

== ENCOUNTER 2020-07-09 16:49 | Emergency (ER) | payer MEDICARE, MEDICAID, SELFPAY ==
[2020-02-20 15:08] VITALS: BMI 32.9
[2020-07-09 16:50] VITALS: BP 141/85; PULSE 77; RESP 15; TEMP 36.6; O2SAT 98; BMI 31.7
--- NOTE | 2020-07-09 17:08 | EKG12_ITS ---
Test Reason : CP Blood Pressure : / mmHG Vent. Rate : 078 BPM Atrial Rate : 078 BPM P-R Int : 164 ms QRS Dur : 092 ms QT Int : 420 ms P-R-T Axes : 045 032 078 degrees QTc Int : 478 ms Normal sinus rhythm Nonspecific ST abnormality Abnormal ECG Confirmed by SAY VANESSA, JAGDISH ([id number]), non linear editor NATALIA YANCEY ([id number]) on 07/12/2020 9:03:10 AM Referred By: SHAYNE Confirmed By:JAGDISH DEAL MD
--- NOTE | 2020-07-09 17:09 | CT_ITS ---
STUDY: CTA CHEST REASON FOR EXAM: Female, 65 years old. Shortness of breath history of pulmonary embolism, thoracic outlet syndrome RADIATION DOSAGE (If Supplied By Facility): CTDIvol = ( 16.13 ) mGy, DLP = ( 443.90 ) mGycm TECHNIQUE: The examination was performed with the intravenous administration of IV 100mL Isovue-370. Post-processing of the angiographic images was performed, with multiplanar reformation and 3D reconstruction. Individualized dose optimization techniques were used for this CT. COMPARISON: 16 January 2020 FINDINGS: Examination is mildly technically suboptimal due to patient''s large body habitus resulting in elevated image noise. Central and lobar and proximal segmental arteries are fully assessable. Smaller segmental and subsegmental arteries are suboptimally seen. There is no acute or chronic pulmonary embolism. Aorta is of normal caliber. There is indirect collateral flow from the left upper extremity into the central venous compartment likely due to either chronic obstruction or occlusive angulation of the subclavian veins. Subclavian artery is patent. SVC is patent. Contralateral right subclavian vein is bypassed with a PTFE graft. Graft patency cannot be assessed as examination was not performed in the venous phase. Lungs are clear with minor scattered atelectasis.. There is no pneumothorax, pulmonary edema or pleural effusions. Mediastinal contents are normal with benign calcified mediastinal lymph nodes due to prior inflammation.. Osseous structures are intact. Liver is fatty infiltrated. There is cholecystectomy. CT/CTA Chest W/WO Contrast IMPRESSION: 1. No pulmonary embolism 2. Clear lungs. 3. 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 Electronically Signed: Rafat Herzog MD at 18:44 EDT Tel , Service support ,
--- NOTE | 2020-07-09 17:12 | ED.VIS.GEN ---
History of Present Illness Chief Complaint: Chest Pain Informant: Patient Narrative: Patient is a 65-year-old female with history of thoracic outlet syndrome status post stent placement on the right however this was subsequently clotted and patient is currently on Eliquis, Plavix and 81 mg aspirin presenting with increased swelling and pain of her left upper extremity and her left lower extremity. States she has had throbbing pain/lumps in her forearm and calf. Patient notes she has chronic dependent edema. She felt a little lump/knot in her left chest 2 days ago. She is also had increased dyspnea on exertion with walking to take out the trash or going up the stairs over the past 2 days. Patient denies any chest pain or shortness of breath at rest. She denies associated nausea or GI symptoms. No urinary symptoms. Patient states has been compliant with her medications for the most part but has missed a couple doses of her Eliquis. She did have her second met during a Covid vaccine on June 28. She called her PCP about this issue today and was recommended come to the ER for further evaluation given her medical history. Patient follows with Dr. Suresh for vascular surgery. Chart review shows Venous duplex on 05/09/2020 shows acute superficial vein thrombosis in the right cephalic vein at the origin extending to the subclavian vein. Past Medical History - Allergies and Home Meds Allergies/Adverse Reactions: Allergies No Known Allergies Allergy (Verified 07/09/20 16:53) Primary Care Physician: Madeleine Mejia DO [Primary Care Provider] - Past Medical History: - - Thoracic outlet syndrome, DVT of the right axillary vein, DERICK, hyperlipidemia, hypertension, vertigo Surgical History: - - right venous stenting Smoking Status: Never smoker Review of Systems General: Denies: Chills, Fever, Sweats Eyes: Denies: Visual changes - bilaterally, Diplopia ENT: Denies: Rhinorrhea, Sore throat Cardiovascular: Denies: Chest pain, Palpitations Respiratory: Reports: Dyspnea, Dyspnea on exertion. Denies: Cough, Orthopnea Gastrointestinal: Denies: Abdominal pain, Nausea, Vomiting, Diarrhea, Melena, Hematochezia Genitourinary: Denies: Dysuria, Hematuria, Frequency Musculoskeletal: Reports: Swelling, Extremity Pain - Left-sided. Denies: Back pain Skin: Denies: Rash, Wounds Neurological: Denies: Headache, Weakness, Numbness Physical Exam Vital Signs/Narrative: Vital Signs Temp Pulse Resp BP Pulse Ox 07/09/20 16:50 97.9 F 77 15 141/85 H 98 Inital Vital Signs reviewed: Yes General: Well nourished, Well developed, No Acute Distress Head: Normocephalic, Atraumatic Eyes: Perrl, EOMI ENT: Moist mucous membranes, No rhinorrhea Neck: Supple, Nontender Cardiovascular: Regular rate, Regular rhythm, No murmurs, - - No crackles appreciated Respiratory: No distress, CTA bilaterally, Chest nontender Abdomen: Soft, Nontender, Nondistended, Normal bowel sounds Back: Nontender, Normal Inspection Extremities: Nontender, Edema - Chronic appearing lymphedema of the right upper extremity. Nonpitting edema asymmetric in the left lower extremity., - - No palpable cords appreciated. 2+ bilateral PT pulses. 2+ bilateral radial pulses Skin: Normal color, No rash Neurological: Alert, Oriented x3, Cranial nerves II-XII grossly intact, Normal Strength, Normal Sensation Psychological: Normal affect, Normal Mood Diagnostic/Tx/Re-eval Clinical Impression(s) from Imaging Studies Chest CTA 07/09/20 17:09 IMPRESSION: 1. No pulmonary embolism 2. Clear lungs. 3. 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 Electronically Signed: Rafat Herzog MD at 18:44 EDT Tel , Service support , Chest X-Ray 07/09/20 17:13 IMPRESSION: No acute radiographic abnormalities. Electronically Signed: Jean Umanzor MD at 17:52 EDT Tel , Service support , Venous Duplex 07/09/20 17:19 IMPRESSION: Normal venous Doppler ultrasound of the lower extremity. Electronically Signed: Rafat Herzog MD at 19:10 EDT Tel , Service support , Laboratory Data 04/07/09/20 07/09/20 17:00 17:00 17:00 WBC 7.1 RBC 4.56 Hgb 12.4 Hct 40.1 MCV 87.9 MCH 27.2 MCHC 30.9 L RDW Std Deviation 43.9 RDW Coeff of Matthew 13.6 Plt Count 350 MPV 10.7 Immature Gran % (Auto) 0.400 Neut % (Auto) 61.1 Lymph % (Auto) 25.8 [place] % (Auto) 9.3 Eos % (Auto) 2.7 Baso % (Auto) 0.7 Absolute Neuts (auto) 4.4 Absolute Lymphs (auto) 1.84 Nucleated RBC % 0 PT Cancelled INR Cancelled APTT Cancelled Sodium 139 Potassium 3.2 L Chloride 103 Carbon Dioxide 28.0 Anion Gap 8 BUN 26 H Creatinine 1.35 H Estim Creat Clear Calc 35.40 Est GFR (MDRD) Af Amer 50 L Est GFR (MDRD) Non-Af 42 L BUN/Creatinine Ratio 19.3 Glucose 89 Calcium 9.3 Total Bilirubin 0.40 AST 16 ALT 24 Alkaline Phosphatase 92 Troponin I < 0.015 B-Natriuretic Peptide Total Protein 7.9 Albumin 3.8 Globulin 4.1 Albumin/Globulin Ratio 0.9 07/09/20 07/09/20 17:00 17:40 WBC RBC Hgb Hct MCV MCH MCHC RDW Std Deviation RDW Coeff of Matthew Plt Count MPV Immature Gran % (Auto) Neut % (Auto) Lymph % (Auto) [place] % (Auto) Eos % (Auto) Baso % (Auto) Absolute Neuts (auto) Absolute Lymphs (auto) Nucleated RBC % PT 14.5 INR 1.2 APTT 30.8 Sodium Potassium Chloride Carbon Dioxide Anion Gap BUN Creatinine Estim Creat Clear Calc Est GFR (MDRD) Af Amer Est GFR (MDRD) Non-Af BUN/Creatinine Ratio Glucose Calcium Total Bilirubin AST ALT Alkaline Phosphatase Troponin I B-Natriuretic Peptide 18.6 Total Protein Albumin Globulin Albumin/Globulin Ratio - Rhythm Strip Rhythm Strip: Sinus Rhythm Rate: 78 Ectopy: None - EKG Initial EKG Interpretation: Sinus Rhythm, - - Sinus rhythm rate of 78 Normal axis Normal intervals Normal ST segments - Medical Decision Making Evaluated for extremity pain and swelling. She has a history of thoracic outlet syndrome with subsequent clotting and is currently on anticoagulation for this. Her PCP was concerned about clots given her recent Covid vaccine so she was sent to the ER for further evaluation. Patient does have asymmetric edema but she is neurovascularly intact. No signs of PE or DVT found. The patient does have a mild elevation of her creatinine but she is given fluids for this. Patient does not have an associated thrombocytopenia and I do not suspect HIT. In addition patient is on Eliquis she has the appropriate treatment. Her creatinine is normal. Her BNP is normal. I do not have explanation for her new dyspnea on exertion. 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 Patient is counseled on signs and symptoms requiring return to the emergency room. Patient verbalizes agreement and understand this plan. Patient discharged home in stable and improved condition. ED Disposition - Plan for ED Patient: Disposition: Home or Assisted Living Diagnosis: Extremity pain, Peripheral edema, Dyspnea on exertion Instructions: ED Pain, Acute, Uncertain Cause, ED Dyspnea Referrals: Madeleine Mejia DO [Primary Care Provider] - Man Gauthier MD [STAFF PHYSICIAN] -
--- NOTE | 2020-07-09 17:13 | RAD_ITS ---
INDICATION: sob EXAMINATION/TECHNIQUE: X-RAY - XR Chest 1 View COMPARISON: 12/14/2019. FINDINGS: The lungs are clear. The cardiomediastinal silhouette is unremarkable. No pleural effusion or pneumothorax. No acute osseous abnormalities. Right subclavian stent. RAD/Chest 1 View (Portable) IMPRESSION: No acute radiographic abnormalities. Electronically Signed: Jean Umanzor MD at 17:52 EDT Tel , Service support ,
--- NOTE | 2020-07-09 17:19 | US_ITS ---
STUDY: VENOUS DOPPLER ULTRASOUND - LEFT LOWER EXTREMITY REASON FOR EXAM: Female, 65 years old. undefined -- EDEMA LEFT LEG TECHNIQUE: Ultrasound evaluation of the deep vein system to include mariee-scale imaging and compression was performed. Mariee-scale imaging and Doppler sonographic evaluation, including duplex spectral analysis and qualitative color flow sonography, was performed. COMPARISON: 09 May 2020, 21 December 2019 FINDINGS: Common Femoral Vein: Normal compression, spontaneity and augmentation. Normal color Doppler. Common Femoral Vein/Greater Saphenous Junction: Normal compression, spontaneity and augmentation. Normal color Doppler. Deep Femoral Vein: Not visualized Femoral Proximal: Normal compression, spontaneity and augmentation. Normal color Doppler. Femoral Middle: Normal compression, spontaneity and augmentation. Normal color Doppler. Femoral Distal: Normal compression, spontaneity and augmentation. Normal color Doppler. Popliteal Vein: Normal compression, spontaneity and augmentation. Normal color Doppler. Posterior Tibial Vein: Normal compression, spontaneity and augmentation. Normal color Doppler. Peroneal Vein: Normal compression, spontaneity and augmentation. Normal color Doppler. US/Venous Duplex Imag/Limited/Uni IMPRESSION: Normal venous Doppler ultrasound of the lower extremity. Electronically Signed: Rafat Herzog MD at 19:10 EDT Tel , Service support ,
[2020-07-09 17:31] VITALS: BP 125/69; PULSE 67; RESP 19; O2SAT 96
[2020-07-09 17:36] LABS: Absolute Lymphocyte Count 1.84 X10^3/uL (0.83-4.51); Absolute Neutrophil Count 4.4 X10^3/uL (2.0-7.7); Basophil# 0.05 X10^3/uL; Basophil% 0.7 % (0-1); Eosinophil# 0.19 X10^3/uL; Eosinophils% 2.7 % (0-5); Hematocrit 40.1 % (37-47); Hemoglobin 12.4 g/dL (12.0-15.0); Lymphocyte # 1.84 X10^3/ul (0.83-4.51); Lymphocyte % 25.8 % (19-41); Mean Corp Hgb Conc 30.9 g/dL (32-36); Mean Corpuscular Hgb 27.2 pg (27.0-32.0); Mean Corpuscular Volume 87.9 fL (81-99); Mean Platelet Vol. 10.7 fl (6.2-12.0); Monocyte# 0.66 X10^3/uL; Monocyte% 9.3 % (0-10); NRBC Flagged by Analyzer 0 % (0-5); Neutrophil # 4.36 X10^3/uL (2.7-7.7); Neutrophil % 61.1 % (47-70); Platelet Count 350 K/mm3 (150-450); RBC Distribution Width CV 13.6 % (11.6-14.6); RBC Distribution Width SD 43.9 fl (35.1-43.9); Red Blood Count 4.56 M/mm3 (4.2-5.4); White Blood Count 7.1 K/mm3 (4.4-11.0)
[2020-07-09 17:52] LABS: ALB/GLOB Ratio 0.9 RATIO (0.9-2.4); AST(SGOT) 16 U/L (15-37); Alanine Aminotransfer ALT/SGPT 24 U/L (13-56); Albumin, Serum 3.8 g/dL (3.2-5.0); Alkaline Phosphatase 92 U/L (45-117); Anion Gap 8 (5-15); BUN 26 mg/dL (7-18); BUN/Creat Ratio 19.3 RATIO (10-20); Calcium,Total 9.3 mg/dL (8.5-10.1); Chloride 103 mmol/L (98-107); Creatinine, Serum 1.35 mg/dL (0.55-1.02); EST Glomerular Filtration Rate 42 mL/min (>60); Est Glom Filt Rate - Afr Amer 50 mL/min (>60); Globulin 4.1 g/dL (2.2-4.2); Glucose 89 mg/dL (74-106); Potassium 3.2 mmol/L (3.5-5.1); Protein, Total 7.9 g/dL (6.4-8.2); Sodium Level 139 mmol/L (136-145)
[2020-07-09 18:03] LABS: International Normalized Ratio 1.2; Partial Thromboplast Time 30.8 Seconds (24.1-36.2); Prothrombin Time (Protime)PT. 14.5 SECONDS (11.7-14.9)
[2020-07-09 18:10] LABS: BNP,B-Type NATRIURETIC PEPTIDE 18.6 pg/mL (0-100)
[2020-07-09 19:10] VITALS: PULSE 71; RESP 22; O2SAT 93
[2020-07-09 20:12] VITALS: BP 139/76
== END 2020-07-09 20:13 | disposition home or self-care (01) ==
PROVIDERS: Emergency Provider Emergency Medicine; PCP Family Medicine
DX: R06.09 Other forms of dyspnea (principal); R60.9 Edema, unspecified; M79.605 Pain in left leg; M79.642 Pain in left hand; M79.602 Pain in left arm; E78.5 Hyperlipidemia, unspecified; G47.33 Obstructive sleep apnea (adult) (pediatric); I10 Essential (primary) hypertension; Z79.01 Long term (current) use of anticoagulants; Z79.02 Long term (current) use of antithrombotics/antiplatelets; Z86.711 Personal history of pulmonary embolism; Z86.718 Personal history of other venous thrombosis and embolism; G54.0 Brachial plexus disorders
CPT/HCPCS: 71045; 71275; 80053; 83880; 84484; 85025; 85610; 85730; 93005; 93971; 99285; J7040; Q9967; A4216

== ENCOUNTER → 2020-09-03 08:41 | Outpatient (CLI) | payer MEDICARE, MEDICAID, SELFPAY ==
[2020-08-29 09:38] VITALS: BMI 31.9
[2020-09-03 09:44] LABS: Absolute Lymphocyte Count 1.34 X10^3/uL (0.83-4.51); Absolute Neutrophil Count 4.2 X10^3/uL (2.0-7.7); Basophil# 0.06 X10^3/uL; Basophil% 0.9 % (0-1); Eosinophil# 0.18 X10^3/uL; Eosinophils% 2.8 % (0-5); Hematocrit 38.2 % (37-47); Hemoglobin 12.2 g/dL (12.0-15.0); Lymphocyte # 1.34 X10^3/ul (0.83-4.51); Mean Corp Hgb Conc 31.9 g/dL (32-36); Mean Corpuscular Hgb 27.7 pg (27.0-32.0); Mean Corpuscular Volume 86.6 fL (81-99); Monocyte# 0.53 X10^3/uL; Monocyte% 8.3 % (0-10); NRBC Flagged by Analyzer 0 % (0-5); Neutrophil # 4.24 X10^3/uL (2.7-7.7); Neutrophil % 66.5 % (47-70); Platelet Count 290 K/mm3 (150-450); RBC Distribution Width CV 13.9 % (11.6-14.6); RBC Distribution Width SD 43.7 fl (35.1-43.9); Red Blood Count 4.41 M/mm3 (4.2-5.4); White Blood Count 6.4 K/mm3 (4.4-11.0)
[2020-09-03 10:56] LABS: AST(SGOT) 20 U/L (15-37); Alanine Aminotransfer ALT/SGPT 30 U/L (13-56); Albumin, Serum 3.7 g/dL (3.2-5.0); Alkaline Phosphatase 92 U/L (45-117); Anion Gap 10 (5-15); BUN 31 mg/dL (7-18); BUN/Creat Ratio 34.8 RATIO (10-20); Calcium,Total 8.8 mg/dL (8.5-10.1); Chloride 101 mmol/L (98-107); Cholesterol 161 mg/dL (200); Creatinine, Serum 0.89 mg/dL (0.55-1.02); EST Glomerular Filtration Rate 67 mL/min (>60); Est Glom Filt Rate - Afr Amer 81 mL/min (>60); Globulin 3.7 g/dL (2.2-4.2); Glucose 118 mg/dL (74-106); High Density Lipoprotein 36 mg/dL; Protein, Total 7.4 g/dL (6.4-8.2); Sodium Level 141 mmol/L (136-145); Triglycerides 211 mg/dL; Very Low Density Lipoprotein 42 mg/dL (5-40)
== END ==
PROVIDERS: PCP Family Medicine; Visit Provider Family Medicine
DX: Z51.81 Encounter for therapeutic drug level monitoring (principal); E78.5 Hyperlipidemia, unspecified
CPT/HCPCS: 36415; 80053; 80061; 85025

== ENCOUNTER → 2020-09-27 08:54 | Outpatient (CLI) | payer MEDICARE, MEDICAID, SELFPAY ==
[2020-09-05 05:52] VITALS: BMI 32.5
--- NOTE | 2020-09-27 09:01 | VDUE_ITS ---
Reason For Study: SWELLING Right Proximal Right jugular vein is spontaneous, widely patent, phasic, with no intraluminal echogenicity noted. Right subclavian vein is spontaneous, widely patent, phasic, with no intraluminal echogenicity noted. Right Lower Arm Right radial vein is compressible. Right ulnar vein is compressible. Right Arm Right axillary vein is spontaneous, patent, phasic, competent, compressible and demonstrates augmentation. Right brachial vein is compressible. Right cephalic vein is compressible. Right basilic vein is compressible. VL/Venous Duplex US, Unilateral Interpretation Summary Deep veins of the right upper extremity are patent and compressible segmentally . There is no evidence of deep vein thrombosis. The superficial veins of the right upper extr emity, the basilic and cephalic veins, are patent and compressible. There is no evidence of right upper extremity superficial thrombophlebitis involving the veins imaged. Ordering Physician: Madeleine Mejia Referring Physician: Madeleine Mejia Performed By: Yomaira Oleary RVT, RDCS and Student ?
== END ==
PROVIDERS: PCP Family Medicine; Referring Provider Family Medicine; Visit Provider Family Medicine
DX: R60.0 Localized edema (principal); I82.A11 Acute embolism and thrombosis of right axillary vein
CPT/HCPCS: 93971

== ENCOUNTER → 2020-12-06 09:50 | Outpatient (CLI) | payer MEDICARE, MEDICAID, SELFPAY ==
--- NOTE | 2020-12-06 09:52 | VDUE_ITS ---
Reason For Study: pain, swelling, thoracic outlet syndrome Right Proximal Right jugular vein is spontaneous, widely patent, phasic, with no intraluminal echogenicity noted. Decreased flow noted in stent in the subclavian vein. Right Lower Arm Right radial vein is compressible. Right ulnar vein is compressible. Right Arm Right axillary vein is spontaneous, patent, phasic, competent, compressible and demonstrates augmentation. Right brachial vein is compressible. Right cephalic vein is compressible. Right basilic vein is compressible. Prelim called to Dr. Suresh. VL/Venous Duplex US, Unilateral Interpretation Summary Decreased flow noted throughout the right subclavian stent. Otherwise no eviden ce of DVT throughout the right arm and appears to have good flow. Ordering Physician: Archie Suresh Performed By: Michelet Mendez RVT ?
== END ==
PROVIDERS: PCP Family Medicine; Referring Provider Surgery Vascular Surgery; Visit Provider Surgery Vascular Surgery
DX: G54.0 Brachial plexus disorders (principal); M79.601 Pain in right arm; R60.9 Edema, unspecified
CPT/HCPCS: 93971

== ENCOUNTER → 2021-02-19 09:56 | Outpatient (CLI) | payer MEDICARE, MEDICAID, SELFPAY ==
[2021-02-19 11:06] LABS: AST(SGOT) 20 U/L (15-37); Alanine Aminotransfer ALT/SGPT 26 U/L (13-56); Albumin, Serum 3.8 g/dL (3.2-5.0); Alkaline Phosphatase 87 U/L (45-117); Bilirubin, Direct 0.16 mg/dL (0.00-0.30); Cholesterol 169 mg/dL (200); Globulin 4.3 g/dL (2.2-4.2); High Density Lipoprotein 40 mg/dL; Protein, Total 8.1 g/dL (6.4-8.2); Triglycerides 154 mg/dL; Very Low Density Lipoprotein 31 mg/dL (5-40)
== END ==
PROVIDERS: PCP Family Medicine; Visit Provider Internal Medicine Cardiovascular Disease
DX: E78.00 Pure hypercholesterolemia, unspecified (principal)
CPT/HCPCS: 36415; 80061; 80076

== ENCOUNTER 2021-03-24 19:42 | Observation (INO) | payer MEDICARE, MEDICAID, SELFPAY ==
[2021-03-24] VITALS (10 sets, daily range): BP systolic 128–155; BP diastolic 77–90; PULSE 73–86; RESP 16–34; TEMP 35–36.6; O2SAT 95–99; BMI 31.0; BMI 30.5
[2021-03-24] MEDS: Ondansetron 4 MG/2 ML Vial IV ×2 (19:56→20:21)
--- NOTE | 2021-03-24 19:56 | EKG12_ITS ---
Test Reason : STROKE Blood Pressure : / mmHG Vent. Rate : 079 BPM Atrial Rate : 079 BPM P-R Int : 192 ms QRS Dur : 100 ms QT Int : 448 ms P-R-T Axes : 043 014 061 degrees QTc Int : 513 ms Normal sinus rhythm Nonspecific ST and T wave abnormality Abnormal ECG Confirmed by SAY VANESSA, JAGDISH ([id number]), editor & co founder MURRAY ALBA ([id number]) on 03/26/2021 1:39:32 PM Referred By: RU Confirmed By:JAGDISH DEAL MD
--- NOTE | 2021-03-24 19:56 | CT_ITS ---
STUDY: CT BRAIN WITHOUT CONTRAST REASON FOR EXAM: Female, 66 years old. Acute neurologic deficit evaluation for stroke RADIATION DOSAGE (If Supplied By Facility): CTDIvol = ( 44.99 ) mGy, DLP = ( 745.49 ) mGycm TECHNIQUE: Transaxial CT imaging of the brain was performed without administration of intravenous contrast material. Individualized dose optimization techniques were used for this CT. COMPARISON: No relevant priors. FINDINGS: Brain parenchyma is without focal lesions, mass effect, acute intracranial hemorrhage, extra parenchymal fluid collections, hydrocephalus or herniation. The skull is intact. CT/STROKE Brain/Head without Cont IMPRESSION: 1. Normal CT brain. N.B. : The above Results were Read Back by Rafat Herzog MD to , AA, and understanding confirmed on 03/24/2021 20:21:21 (ET). Electronically Signed: Rafat Herzog MD at 20:10 EST Tel , Service support ,
--- NOTE | 2021-03-24 19:57 | CT_ITS ---
STUDY: CTA HEAD AND NECK WITH CONTRAST REASON FOR EXAM: Female, 66 years old. Neuro deficit, acute, stroke suspected RADIATION DOSAGE (If Supplied By Facility): CTDIvol = ( 26.53 ) mGy, DLP = ( 717.52 ) mGycm TECHNIQUE: CT angiography was performed with a multi-detector CT scanner. Data acquisition was obtained from the skull base through the vertex following intravenous administration of IV 100mL Isovue-370. MIP images were reconstructed from the axial data set. Post-processing of the angiographic images was performed, with multiplanar reformation and 3D reconstruction. Individualized dose optimization techniques were used for this CT. COMPARISON: No relevant priors. FINDINGS: Normal bilateral petrous carotid arteries. Normal right cavernous carotid artery with a normal supraclinoid bifurcation. Normal left cavernous carotid artery with a normal supraclinoid bifurcation. Normal right A1 segments of the anterior cerebral artery. Normal left A1 segments of the anterior cerebral artery. Normal intact anterior communicating artery (ACOM). Normal bilateral A2 segments of the anterior cerebral arteries. Normal right M1 and M2 segments of the middle cerebral arteries, with a normal M1 bifurcation. Normal left M1 and M2 segments of the middle cerebral arteries, with a normal M1 bifurcation. Posterior communicating arteries are not well seen. Normal bilateral vertebral arteries. Normal basilar artery with a normal basilar bifurcation. The visualized bilateral superior cerebellar (SCA) arteries are normal. Normal bilateral P1, P2 and visualized P3 segments of the posterior cerebral arteries. There is no demonstrated aneurysm of the [place] of [place]. There is no demonstrated abnormality of the visualized brain. AORTIC ARCH: Normal visualized aortic arch. Normal origins of the brachiocephalic, left common carotid, and left subclavian arteries. RIGHT CAROTID ARTERIES: Normal right common carotid artery (CCA). Normal right common carotid bulb. Normal origin of the right internal carotid (ICA) artery without a hemodynamically significant stenosis. Normal visualized cervical portion of the right internal carotid artery. Normal origin of the right external carotid artery (ECA). LEFT CAROTID ARTERIES: Normal left common carotid artery (CCA). Normal left common carotid bulb. Normal origin of the left internal carotid (ICA) artery without a hemodynamically significant stenosis. Normal visualized cervical portion of the left internal carotid artery. Normal origin of the left external carotid artery (ECA). VERTEBRAL ARTERIES: Normal bilateral vertebral arteries. There is mild bilateral internal carotid atherosclerosis in the carotid bulbs and basal skull. There is asymmetric appearance of the vocal cords with the right possibly paralyzed. CT/STROKE CTA Head AND Neck W/Con IMPRESSION: Patent craniocervical arteries without occlusion or high-grade stenosis. Possible right vocal cord paralysis, ENT outpatient follow-up advised. N.B. : The above Results were Read Back by Rafat Herzog MD to , AA, and understanding confirmed on 03/24/2021 20:49:26 (ET). Electronically Signed: Rafat Herzog MD at 20:32 EST Tel , Service support ,
--- NOTE | 2021-03-24 19:58 | EDS_ITS ---
HPI History of Present Illness Chief Complaint: Syncope Detail of Chief Complaint: Concern for possible stroke Informant: patient and family Narrative Narrative: Patient presents to the emergency department with her daughter who is an ER nurse. Patient apparently was at work 2 hours ago when she started feeling like she was going to pass out. Patient had heaviness in both arms and had numbness and tingling in both arms as well as her face. On the way to the hospital daughter states that her speech changed and it appeared that she may be had a left-sided facial droop may be some slight weakness on the left side. Patient has history of thoracic outlet syndrome and is currently on Eliquis. Patient also with history of hypertension. She denies headache. She denies falls or head injury. Patient apparently is COVID positive and day 8 of symptoms. Prior similar symptoms: No PFSH PFSH Medical History Arthritis Essential hypertension Hyperlipidemia Migraine Osteoarthritis of hip, unspecified Peripheral edema Vertigo Vision problems Home Medications amlodipine 10 mg tablet 10 mg PO DAILY 01/07/18 [History Last Taken 12/14/19 08:00] metoprolol succinate 50 mg tablet,extended release 24 hr 50 mg PO DAILY 01/07/18 [History Last Taken 12/14/19 08:00] triamterene 37.5 mg-hydrochlorothiazide 25 mg capsule 1 cap PO DAILY 01/07/18 [History Last Taken 03/19/18] potassium chloride 10 mEq tablet,extended release 10 meq PO DAILY #30 tab 02/09/19 [Rx Last Taken 12/14/19 08:00] clopidogrel 75 mg PO DAILY 12/14/19 [History Last Taken 12/14/19 08:00] omeprazole 40 mg PO DAILY 12/14/19 [History Last Taken 12/14/19 08:00] apixaban 5 mg PO BID #74 tab 12/16/19 [Rx Last Taken Unknown] aspirin 81 mg tablet,delayed release 81 mg PO DAILY #90 tab 02/14/21 [Rx Last Taken Unknown] furosemide 40 mg tablet 40 mg PO DAILY #30 tab 02/14/21 [Rx Last Taken Unknown] Allergy/AdvReac Type Severity Reaction Status Date / Time No Known Allergies Allergy Verified 03/24/21 19:47 Family History Mother Arthritis Skin cancer Brother Arthritis Skin cancer Kidney disease Father Parkinson disease Daughter Thyroid disorder Grandfather Hypertension Grandmother Hypertension Grandfather Hypertension CVA (cerebral vascular accident) Grandmother Hypertension Surgical History H/O section H/O: hysterectomy History of angioplasty of vein (12/2019) History of hip replacement History of left heart catheterization (03/19/18) History of resection of rib (10/2019) Hx of cholecystectomy Social History household members: children housing: house pets and animals: Yes pets and animals: dog(s) Smoking Status: Never smoker alcohol intake: never substance use type: does not use ROS ROS ED Constitutional Constitutional ED: Reports systems reviewed and no addt'l complaints, except as documented; Denies body ache(s), change in weight or chills Eyes Eyes: Denies acute decrease in peripheral vision, change in vision, double vision or loss of vision ENT ENT ED: Reports none; Denies ear pain, lip swelling, loss taste/smell, neck pain, otalgia or sore throat Cardiovascular Cardiovascular: Reports none; Denies abdominal pain, chest pain with activity, leg edema, lightheadedness, palpitations, rapid heart rate or syncope Respiratory/Chest Respiratory/Chest: Reports none; Denies change in mental status, dry cough, dyspnea, hemoptysis, shortness of breath at rest or shortness of breath with e xertion Gastrointestinal Gastrointestinal: Reports none, nausea and vomiting; Denies abdominal pain, ch maria r in stool character, diarrhea, hematemesis, hematochezia, melena or rectal bleeding Genitourinary Genitourinary ED: Reports none; Denies abdominal discomfort, anuria, dysuria, genital pain or polyuria Musculoskeletal Musculoskeletal: Reports none; Denies arthralgias, back pain, difficulty walking, extremity pain, muscle weakness or myalgias Integumentary Reports none; Denies abscess or rash Neurologic Neurologic: Reports none and paresthesias; Denies abnormal gait, confusion, focal weakness, frequent falls, headache(s), loss of vision, numbness, radicular pain, vertigo or weakness Psychiatric Psychiatric: Reports systems reviewed and no addt'l complaints, except as documented and none; Denies behavioral changes, confusion, difficulty concentrating, hallucinations, suicidal ideation, tactile hallucinations or visual hallucinations Endocrine Endocrinology: Denies none, cold intolerance, excessive sweating, fatigue or heat intolerance Hematologic/Lymphatic Hematologic/Lymphatic: Reports none; Denies anemia, easy bleeding or easy bruising Allergic/Immunologic Allergic/Immunologic ED: Denies as per HPI, none, lip swelling, mouth swelling, throat swelling, tongue swelling or hives EXAM Physical Exam Const Vital Signs: 03/24/21 19:43 03/24/21 19:52 03/24/21 20:04 Temperature 95 F L 97 F L Temperature Source Temporal Temporal Pulse Rate 85 86 Respiratory Rate 34 H 26 H Blood Pressure 155/90 H Blood Pressure Mean 111 Pulse Ox 95 95 Oxygen Delivery Method Room Air Room Air Room Air 03/24/21 20:15 03/24/21 20:30 Temperature Temperature Source Pulse Rate 73 77 Respiratory Rate 18 16 Blood Pressure 137/81 H 136/77 H Blood Pressure Mean 99 96 Pulse Ox 98 97 Oxygen Delivery Method Room Air Room Air Positive well nourished and well developed General Appearance ED: well developed and NAD HEENT Reports TM's clear and moist mucous membranes normocephalic and atraumatic; Negative for trauma or tenderness Tympanic Membrane ED: Yes TM's clear Eyes PERRL and EOMs intact bilaterally General Eye ED: Negative for pale conjunctiva or scleral icterus Neck no lymphadenopathy, supple and no JVD General: Negative for tenderness Chest Wall inspection of chest normal and palpation of chest normal Chest: Negative for tenderness Resp normal respiratory effort and clear to auscultation bilaterally Effort and Inspection: Negative for respiratory distress or pain with movement Auscultation: Negative for rhonchi, wheezes or diminished lung sounds Cardio regular rate, regular rhythm, S1 normal heart sound, S2 normal heart sound and no murmurs Peripheral Pulses: pulses 2+ throughout GI normal to inspection, nondistended, normoactive bowel sounds, soft to palpation, non-tender, non-distended and no masses Back/Spine no CVA tenderness and no thoracic nor lumbar tenderness Extremity normal to inspection General Extremety ED: Negative for edema General Extremity: Negative for edema Neuro oriented x3, CN's II-XII intact bilaterally, no sensory deficits noted and gait normal Neuro Narrative: No focal deficit noted on exam. I do not appreciate an obvious facial droop. Sensation is intact bilaterally. Finger-nose and heel ovalles testing within normal limits, negative Romberg, negative pronator drift Sensorium / Orientation: awake, alert, oriented to person, oriented to place and oriented to time Motor Exam: strength 5/5 throughout and strength abnormal Psych mental status grossly normal Skin no rashes or lesions noted and no wounds MDM MDM MDM Narrative Medical decision making narrative: IV line established on arrival. Stroke team was activated. Patient placed on clinical research monitor. Patient went directly to CT imaging and her scan was unremarkable. CTA of head and neck also unremarkable other than it was some question of vocal cord paralysis on the right. Outpatient follow-up was recommended by radiology. Patient has no history of vocal cord paralysis. Patient also noted to be hypokalemic and was ordered potassium chloride 40 mEq IV. Patient has had problems with hypokalemia in the past. Evaluation by telestroke neurologist from [facility] recommended against tPA as symptoms mild and resolving and patient on Eliquis. Was recommended patient be admitted for TIA work-up. Case discussed with hospitalist who will evaluate patient for admission Lab Data Attestation: I reviewed the patient's lab results. Labs: Laboratory Results - last 24 hr 03/24/21 03/24/21 03/24/21 19:50 19:50 19:50 WBC 9.3 RBC 4.89 Hgb 13.5 Hct 41.2 MCV 84.3 MCH 27.6 MCHC 32.8 RDW Std Deviation 41.4 RDW Coeff of Matthew 13.5 Plt Count 343 MPV 10.9 Immature Gran % (Auto) 0.500 Neut % (Auto) 61.1 Lymph % (Auto) 28.4 Stone % (Auto) 7.1 Eos % (Auto) 2.3 Baso % (Auto) 0.6 Absolute Neuts (auto) 5.7 Absolute Lymphs (auto) 2.64 Nucleated RBC % 0 PT 15.0 H INR 1.2 APTT 31.8 Sodium 138 Potassium 2.3 L* Chloride 96 L Carbon Dioxide 26.0 Anion Gap 16 H BUN 28 H Creatinine 1.21 H Estim Creat Clear Calc 38.96 Est GFR (MDRD) Af Amer 57 L Est GFR (MDRD) Non-Af 47 L BUN/Creatinine Ratio 23.1 H Glucose 153 H Calcium 9.3 Troponin I High Sens 3 POC Glucose 03/24/21 19:53 WBC RBC Hgb Hct MCV MCH MCHC RDW Std Deviation RDW Coeff of Matthew Plt Count MPV Immature Gran % (Auto) Neut % (Auto) Lymph % (Auto) Stone % (Auto) Eos % (Auto) Baso % (Auto) Absolute Neuts (auto) Absolute Lymphs (auto) Nucleated RBC % PT INR APTT Sodium Potassium Chloride Carbon Dioxide Anion Gap BUN Creatinine Estim Creat Clear Calc Est GFR (MDRD) Af Amer Est GFR (MDRD) Non-Af BUN/Creatinine Ratio Glucose Calcium Troponin I High Sens POC Glucose 152 H Radiography Diagnostic Testing: Clinical Impression(s) from Imaging Studies Head/Neck CTA 03/24/21 19:57 IMPRESSION: Patent craniocervical arteries without occlusion or high-grade stenosis. Possible right vocal cord paralysis, ENT outpatient follow-up advised. Electronically Signed: Rafat Herzog MD at 20:32 EST Tel , Service support , ADDENDUM: 03/24/212055 IMPRESSION: Patent craniocervical arteries without occlusion or high-grade stenosis. Possible right vocal cord paralysis, ENT outpatient follow-up advised. N.B. : The above Results were Read Back by Rafat Herzog MD to , AA, and understanding confirmed on 03/24/2021 20:49:26 (ET). Electronically Signed: Rafat Herzog MD at 20:32 EST Tel , Service support , Chest X-Ray 03/24/21 20:07 IMPRESSION: Normal x-ray examination of the chest. Electronically Signed: Rafat Herzog MD at 20:40 EST Tel , Service support , 1 view chest x-ray obtained interpreted by myself as no acute disease process. Radiology in agreement. EKG Initial EKG: Attestation: I personally reviewed and interpreted this EKG as follows: Comments: Sinus rhythm with a ventricular rate of [address] changes Discharge Plan Dx/Rx/DC Orders Clinical Impression: Brain TIA, Acute hypokalemia Disposition Disposition: Acute Care Hospital [facility]
[2021-03-24 20:01] LABS: Bedside Glucose 152 mg/dL (70-110)
[2021-03-24 20:06] LABS: Absolute Lymphocyte Count 2.64 X10^3/uL (0.83-4.51); Absolute Neutrophil Count 5.7 X10^3/uL (2.0-7.7); Basophil# 0.06 X10^3/uL; Basophil% 0.6 % (0-1); Eosinophil# 0.21 X10^3/uL; Eosinophils% 2.3 % (0-5); Hematocrit 41.2 % (37-47); Hemoglobin 13.5 g/dL (12.0-15.0); Lymphocyte # 2.64 X10^3/ul (0.83-4.51); Lymphocyte % 28.4 % (19-41); Mean Corp Hgb Conc 32.8 g/dL (32-36); Mean Corpuscular Hgb 27.6 pg (27.0-32.0); Mean Corpuscular Volume 84.3 fL (81-99); Mean Platelet Vol. 10.9 fl (6.2-12.0); Monocyte# 0.66 X10^3/uL; Monocyte% 7.1 % (0-10); NRBC Flagged by Analyzer 0 % (0-5); Neutrophil # 5.69 X10^3/uL (2.7-7.7); Neutrophil % 61.1 % (47-70); Platelet Count 343 K/mm3 (150-450); RBC Distribution Width CV 13.5 % (11.6-14.6); RBC Distribution Width SD 41.4 fl (35.1-43.9); Red Blood Count 4.89 M/mm3 (4.2-5.4); White Blood Count 9.3 K/mm3 (4.4-11.0)
--- NOTE | 2021-03-24 20:07 | RAD_ITS ---
STUDY: X-RAY CHEST REASON FOR EXAM: Female, 66 years old. Neuro deficit, acute, stroke suspected TECHNIQUE: Frontal portable view of the chest COMPARISON: 09 July 2020 FINDINGS: The lungs are clear and expanded. There is no demonstrated pleural abnormality. Normal size heart. Normal mediastinum and miguel. Normal visualized pulmonary arteries. Normal visualized aortic arch and descending thoracic aorta. Normal visualized thoracic spine. Normal visualized ribs, clavicles, and shoulders. There is a vascular stent in the right subclavian region. There is no demonstrated abnormality of the visualized soft tissue structures of the upper abdomen. RAD/Chest 1 View IMPRESSION: Normal x-ray examination of the chest. Electronically Signed: Rafat Herzog MD at 20:40 EST Tel , Service support ,
[2021-03-24 20:16] LABS: International Normalized Ratio 1.2
[2021-03-24 20:17] LABS: Partial Thromboplast Time 31.8 Seconds (24.1-36.2)
--- NOTE | 2021-03-24 20:17 | NURSING ---
FAXED FACESHEET TO [facility]
[2021-03-24] MEDS: 0.9% Normal Saline 1,000 ML 100 ML IV (20:24)
[2021-03-24 20:41] LABS: Anion Gap 16 (5-15); BUN 28 mg/dL (7-18); BUN/Creat Ratio 23.1 RATIO (10-20); Calcium,Total 9.3 mg/dL (8.5-10.1); Chloride 96 mmol/L (98-107); Creatinine, Serum 1.21 mg/dL (0.55-1.02); EST Glomerular Filtration Rate 47 mL/min (>60); Est Glom Filt Rate - Afr Amer 57 mL/min (>60); Estimated Creatinine Clearance 38.96 ml/min; Glucose 153 mg/dL (74-106); Potassium 2.3 mmol/L (3.5-5.1); Sodium Level 138 mmol/L (136-145); Troponin-I HS 3 pg/mL (3.0-54.0)
--- NOTE | 2021-03-24 21:05 | NURSING ---
PCU OBS AGYEPONG TIA, HYPOKALEMIA, COVID 19
[2021-03-24] MEDS: Potassium Chloride 10mEq/100mL 10 MEQ/100 ML IV.SOLN. 100 MEQ IV BOLUS ×3 (21:08→23:03)
--- NOTE | 2021-03-24 21:10 | PCM.HP.STD ---
[facility] - General General Date of Admission: 03/24/21 HPI Narrative LEXUS PEOPLES, is a 66 F with a significant history of obstructive sleep apnea on home CPAP; thoracic outlet syndrome with chronic right upper extremity swelling who presents to the emergency department with strokelike symptoms that started about an hour and a half prior to presentation. Her symptoms started while at work and she left work because of her symptoms. She reported symptoms as lightheadedness; presyncope; numbness of bilateral arms and face; and heaviness of bilateral arms. Also she had some slurry speech. Her daughter who is an ED nurse at our hospital ([facility]) noted that also patient had some left facial droop. At the time of evaluation her daughter who was at bedside said that the slurry speech has improved. Emergency department doctor at the time of examination did not appreciate a left facial droop. Also because patient has had Covid symptoms for the past 8days. She reports her Covid symptoms as chills and dry cough as well as nasal congestion. FORMERLY [facility], [facility]1983 Medical History Arthritis CPAP (continuous positive airway pressure) dependence Essential hypertension Hyperlipidemia Migraine Osteoarthritis of hip, unspecified Peripheral edema Sleep apnea Vertigo Vision problems Home Medications amlodipine 10 mg tablet 10 mg PO DAILY 01/07/18 [History Last Taken 12/14/19 08:00] metoprolol succinate 50 mg tablet,extended release 24 hr 50 mg PO DAILY 01/07/18 [History Last Taken 12/14/19 08:00] triamterene 37.5 mg-hydrochlorothiazide 25 mg capsule 1 cap PO DAILY 01/07/18 [History Last Taken 03/19/18] potassium chloride 10 mEq tablet,extended release 10 meq PO DAILY #30 tab 02/09/19 [Rx Last Taken 12/14/19 08:00] clopidogrel 75 mg PO DAILY 12/14/19 [History Last Taken 12/14/19 08:00] omeprazole 40 mg PO DAILY 12/14/19 [History Last Taken 12/14/19 08:00] apixaban 5 mg PO BID #74 tab 12/16/19 [Rx Last Taken Unknown] aspirin 81 mg tablet,delayed release 81 mg PO DAILY #90 tab 02/14/21 [Rx Last Taken Unknown] furosemide 40 mg tablet 40 mg PO DAILY #30 tab 02/14/21 [Rx Last Taken Unknown] Allergy/AdvReac Type Severity Reaction Status Date / Time No Known Allergies Allergy Verified 03/24/21 19:47 Family History Mother Arthritis Skin cancer Brother Arthritis Skin cancer Kidney disease Father Parkinson disease Daughter Thyroid disorder Grandfather Hypertension Grandmother Hypertension Grandfather Hypertension CVA (cerebral vascular accident) Grandmother Hypertension Surgical History H/O section H/O: hysterectomy History of angioplasty of vein (12/2019) History of hip replacement History of left heart catheterization (03/19/18) History of resection of rib (10/2019) Hx of cholecystectomy Social History household members: children housing: house pets and animals: Yes pets and animals: dog(s) Smoking Status: Never smoker alcohol intake: never substance use type: does not use ROS ROS Narrative Constitutional: Reports chills. Denies fever, fatigue, anorexia and change in weight Eyes: Denies blurry vision, change in eye color, change in vision, discharge from eye(s), double vision, erythema, eye pain, loss of vision or other HEENT: Reports nasal congestion. Denies abnormal hearing, dysphagia, ear pain, epistaxis, headache(s), hearing loss, sore throat or other Cardiovascular: Denies chest pain or palpitations. Denies dyspnea on exertion, orthopnea and paroxysmal nocturnal dyspnea Respiratory/Chest: Reports dry cough. Denies shortness of breath. Gastrointestinal: Reports nausea and vomiting. Denies abdominal pain, coffee ground emesis, constipation, diarrhea, dyspepsia, hematemesis, hematochezia, loose stools, melena, or other Genitourinary: Denies burning urination, difficulty urinating, dysuria, hematuria, nocturia, urinary frequency, urinary hesitancy, urinary incontinence, urinary urgency or other Musculoskeletal: Denies arthralgias, back pain, joint pain, joint stiffness, joint swelling, myalgias, neck pain or other Neurologic: Reports lightheadedness. Reports presyncope. Report paresthesia. Had slurred speech. Denies abnormal gait, confusion, disequilibrium, focal weakness, headache(s), seizure-like activity, seizures, tremor(s) or other Psychiatric: Denies anxiety, depression, homicidal ideation, suicidal ideation or other Endocrinology: Denies change in body appearance, cold intolerance, excessive sweating, heat intolerance, polydipsia, polyuria or other Hematologic/Lymphatic: Denies anemia, easy bleeding, easy bruising, lymphadenopathy or other Integumentary: Denies rashes Allergic/Immunologic: Denies rhinitis, hives, eczema, asthma or other Vital Signs Vital Signs Vital Signs: 03/24/21 19:43 03/24/21 19:52 03/24/21 20:04 Temperature 95 F L 97 F L Temperature Source Temporal Temporal Pulse Rate 85 86 Respiratory Rate 34 H 26 H Blood Pressure 155/90 H Blood Pressure Mean 111 Pulse Ox 95 95 Oxygen Delivery Method Room Air Room Air Room Air 03/24/21 20:15 03/24/21 20:30 Temperature Temperature Source Pulse Rate 73 77 Respiratory Rate 18 16 Blood Pressure 137/81 H 136/77 H Blood Pressure Mean 99 96 Pulse Ox 98 97 Oxygen Delivery Method Room Air Room Air Weight Weight: 82.1 kg Body Mass Index (BMI) 31.0 Physical Exam Narrative Physical exam: General: Well-nourished, well-developed. Head: Normocephalic, atraumatic, no tenderness Eyes: PERRLA, EOMI ENT, no trauma, moist mucous membranes, no rhinorrhea Neck: Nontender, full range of motion, no spinal tenderness, deformities, step-off CVS: Regular rate and rhythm. S1-S2 present. No murmur, gallop or rub. Respiratory : clear to auscultation bilaterally, chest wall nontender, no wheezing Abdomen: Soft, nontender, nondistended, normal bowel sounds, no masses : Deferred Back: Nontender, no CVA tenderness, no midline spinal tenderness, deformities, step-offs Extremities: Swelling of right upper extremity. Nontender full range of motion, no trauma Skin: Normal color, no trauma, abrasions Neuro: Alert, oriented, cranial nerves II through XII grossly intact. No dysmetria. No sensation changes. Psychiatry: Normal mood. Normal affect. Not depressed. Not anxious. Results Lab / Micro Data Result Diagrams: 03/24/21 19:50 03/24/21 19:50 Labs: Laboratory Results - last 24 hr 03/24/21 19:50: WBC 9.3, RBC 4.89, Hgb 13.5, Hct 41.2, MCV 84.3, MCH 27.6, MCHC 32.8, RDW Std Deviation 41.4, RDW Coeff of Matthew 13.5, Plt Count 343, MPV 10.9, Immature Gran % (Auto) 0.500, Neut % (Auto) 61.1, Lymph % (Auto) 28.4, [place] % (Auto) 7.1, Eos % (Auto) 2.3, Baso % (Auto) 0.6, Absolute Neuts (auto) 5.7, Absolute Lymphs (auto) 2.64, Nucleated RBC % 0 03/24/21 19:50: PT 15.0 H, INR 1.2, APTT 31.8 03/24/21 19:50: Sodium 138, Potassium 2.3 L*, Chloride 96 L, Carbon Dioxide 26.0, Anion Gap 16 H, BUN 28 H, Creatinine 1.21 H, Estim Creat Clear Calc 38.96, Est GFR (MDRD) Af Amer 57 L, Est GFR (MDRD) Non-Af 47 L, BUN/Creatinine Ratio 23.1 H, Glucose 153 H, Calcium 9.3, Troponin I High Sens 3 03/24/21 19:53: POC Glucose 152 H Radiology Impression Head/Neck CTA 03/24/21 19:57 IMPRESSION: Patent craniocervical arteries without occlusion or high-grade stenosis. Possible right vocal cord paralysis, ENT outpatient follow-up advised. Electronically Signed: Rafat Herzog MD at 20:32 EST Tel , Service support , ADDENDUM: 03/24/212055 IMPRESSION: Patent craniocervical arteries without occlusion or high-grade stenosis. Possible right vocal cord paralysis, ENT outpatient follow-up advised. N.B. : The above Results were Read Back by Rafat Herzog MD to , AA, and understanding confirmed on 03/24/2021 20:49:26 (ET). Electronically Signed: Rafat Herzog MD at 20:32 EST Tel , Service support , Chest X-Ray 03/24/21 20:07 IMPRESSION: Normal x-ray examination of the chest. Electronically Signed: Rafat Herzog MD at 20:40 EST Tel , Service support , Assessment & Plan Assessment/Plan (1) Stroke-like symptom: (2) Acute hypokalemia: PLAN: Strokelike symptoms Serial NINDS NIH Scale ordered Impression of head CT by radiology: Normal Upon my personal head CT image review: I agree with radiologist interpretation Head and neck CTA interpreted by radiologist as no occlusion but with possible right vocal cord paralysis with ENT recommendation. Consider ENT referral upon discharge. Lipid profile and A1c ordered. Review of records shows lipid panel obtained on 09/03/2020. Triglyceride was 211; LDL was 83; VLDL was 42; HDL was 36. Physical therapy, occupational therapy and speech therapy to work with patient. N.p.o. until bedside swallow eval. Patient is on Eliquis, Plavix and aspirin for thoracic outlet syndrome and that will be continued. High intensity statin ordered. Review of labs done on 02/19/2021 did not show elevated liver biochemistries. Permissive hypertension. Control blood pressure with labetalol for systolic blood pressure of more than 220 or diastolic blood pressure of more than 120. MRI of the brain ordered. Reported patient is claustrophobic. Ativan as needed for MRI ordered. Echocardiogram ordered. ABBIE/elevated creatinine Creatinine presentation was 1.21. Review of records shows creatinine of 0.89 on 09/03/2020. Her creatinine on 07/09/2020 is 1.35. Her creatinine in 2020 was 0.78; 0.84. In 2018, 2019 and 2019 her creatinine was normal. No records found in community records otherwise. BUN is 28. BUN over creatinine is 23.1. Hold home diuretics for now. Trend BMP. Hypokalemia Review of labs showed potassium of 2.3. Received IV potassium at the emergency department. P.o. potassium ordered. Hold home potassium. Holding home diuretics. Trend BMP and replace accordingly. Trend BMP. DVT prophylaxis: Patient is on Eliquis and Eliquis has been continued. Charges/Coding Visit Charges OBSV E&M: 48041 Initial observation care L3
[2021-03-25] VITALS (14 sets, daily range): BP systolic 107–126; BP diastolic 60–72; PULSE 57–70; RESP 14–16; TEMP 36.5–36.9; O2SAT 3–98; BMI 30.5
[2021-03-25] MEDS: Potassium Chloride 10mEq/100mL 10 MEQ/100 ML IV.SOLN. 100 MEQ IV BOLUS
[2021-03-25] MEDS: Potassium Chloride Oral Tablet 20 MEQ 40 MEQ PO (01:17)
[2021-03-25] MEDS: APIXABAN 5 MG TABLET PO ×2 (01:17→08:57)
[2021-03-25 04:57] LABS: Absolute Lymphocyte Count 1.55 X10^3/uL (0.83-4.51); Absolute Neutrophil Count 4.8 X10^3/uL (2.0-7.7); Basophil# 0.03 X10^3/uL; Basophil% 0.4 % (0-1); Eosinophil# 0.12 X10^3/uL; Eosinophils% 1.7 % (0-5); Hematocrit 36.7 % (37-47); Hemoglobin 11.7 g/dL (12.0-15.0); Lymphocyte # 1.55 X10^3/ul (0.83-4.51); Lymphocyte % 22.4 % (19-41); Mean Corp Hgb Conc 31.9 g/dL (32-36); Mean Corpuscular Hgb 27.1 pg (27.0-32.0); Monocyte# 0.44 X10^3/uL; Monocyte% 6.4 % (0-10); NRBC Flagged by Analyzer 0 % (0-5); Neutrophil # 4.76 X10^3/uL (2.7-7.7); Platelet Count 282 K/mm3 (150-450); RBC Distribution Width CV 13.4 % (11.6-14.6); Red Blood Count 4.32 M/mm3 (4.2-5.4); White Blood Count 6.9 K/mm3 (4.4-11.0)
[2021-03-25 05:29] LABS: Anion Gap 9 (5-15); BUN 16 mg/dL (7-18); BUN/Creat Ratio 22.5 RATIO (10-20); Calcium,Total 8.3 mg/dL (8.5-10.1); Chloride 104 mmol/L (98-107); Cholesterol 141 mg/dL (200); Creatinine, Serum 0.71 mg/dL (0.55-1.02); EST Glomerular Filtration Rate 87 mL/min (>60); Est Glom Filt Rate - Afr Amer 105 mL/min (>60); Estimated Creatinine Clearance 47.14 ml/min; Glucose 119 mg/dL (74-106); High Density Lipoprotein 33 mg/dL; Sodium Level 141 mmol/L (136-145); Triglycerides 132 mg/dL; Very Low Density Lipoprotein 26 mg/dL (5-40)
[2021-03-25 07:58] LABS: Hemoglobin A1c 6.3 % (3.8-5.6)
[2021-03-25] MEDS: Pantoprazole Sodium 40 MG Tablet PO (08:56)
[2021-03-25] MEDS: Aspirin E.C. 81 MG Tablet PO (08:56)
[2021-03-25] MEDS: Clopidogrel Bisulfate 75 MG Tablet PO (08:56)
[2021-03-25] MEDS: Acetaminophen 325 MG Tablet 650 MG PO (08:57)
[2021-03-25] MEDS: 0.9% Saline Lock 10 ML Syringe IV (10:30)
[2021-03-25] MEDS: LORazepam 2 MG/ML Syringe IV (10:30)
--- NOTE | 2021-03-25 11:05 | MRI_ITS ---
HISTORY: CVA. TECHNIQUE: Multiplanar and multisequence MR images of the brain were obtained without gadolinium. # of images incl. paperwork: 279. COMPARISON: None. FINDINGS: Motion artifact lowers the sensitivity of the examination. BRAIN PARENCHYMA: Minimal T2 FLAIR hyperintense signal in the periventricular white matter. No abnormal focus of restricted diffusion. Small chronic lacunar infarct in the right cerebellum. INTRACRANIAL HEMORRHAGE: No acute intracranial hemorrhage. CSF SPACES: Cerebral ventricles, cortical sulci, and other extra-axial CSF spaces within normal limits in size for patient's age. No midline shift or other significant mass effect. No extra-axial fluid collection. VASCULAR SYSTEM: Major intracranial flow-voids maintained. ORBITS: Unremarkable. PARANASAL SINUSES: Bilateral frontal ethmoid and maxillary sinus mucosal thickening and fluid. MRI/Brain without Contrast IMPRESSION: Motion artifact. No evidence for acute infarct. Minimal chronic white matter changes. Paranasal sinus inflammatory disease. at 1302 Reported and signed by: Isabel Hurt MD Electronically Signed: Isabel Hurt MD at 13:01 EST Tel , Service support ,
--- NOTE | 2021-03-25 14:15 | PCM.DC ---
Discharge Instructions Diet Discharge Diet: No restrictions Activity Discharge Activity: Return to Normal Activity Weight Bearing Status: Full weight bearing Follow Up Care Test Results: Test results from this visit will be discussed in further detail at your follow-up appointment, if applicable. Discharge Plan Admission Admit Date/Time: 03/24/21 20:57 Primary Reason for Your Visit: pre syncope, hypokalemia Attending Provider: Zachary Roldan Primary Care Provider: Madeleine Mejia Instructions Additional Instructions / Restrictions: Your physician's office will contact you regarding the possibilty of getting monoclonal antibodies Discharge Orders/Prescriptions Prescriptions: New furosemide [Lasix] 20 mg tablet 60 mg PO DAILY Qty: 90 RF: 0 potassium chloride 10 mEq capsule, extended release 20 meq PO BID Qty: 120 RF: 0 Continued amlodipine 10 mg tablet 10 mg PO DAILY RF: 0 metoprolol succinate 50 mg tablet extended release 24 hr 50 mg PO DAILY RF: 0 clopidogrel 75 MG tablet 75 mg PO DAILY RF: 0 omeprazole 40 MG capsule,delayed release(DR/EC) 40 mg PO DAILY RF: 0 apixaban 5 MG tablet 5 mg PO BID Qty: 74 RF: 0 aspirin 81 mg tablet,delayed release (DR/EC) 81 mg PO DAILY Qty: 90 RF: 3 Changed potassium chloride 10 mEq tablet extended release 20 meq PO BID Qty: 120 RF: 11 Discontinued triamterene-hydrochlorothiazid 37.5-25 mg capsule 1 cap PO DAILY RF: 0 furosemide [Lasix] 40 mg tablet 40 mg PO DAILY Qty: 30 RF: 11 Referrals / Follow Up: Madeleine Mejia DO [Primary Care Provider] - In 1 Week Disposition Disposition (needs filled in before D/C Order can be placed): Home, Self Care
--- NOTE | 2021-03-25 16:01 | CASEMGMT ---
Therapy states pt is independent and no need for further therapy. SStaten RN CM
--- NOTE | 2021-03-25 16:50 | PCM.DC.SUM ---
Providers Date of Admission: 03/24/21 Date of Discharge: 03/25/21 Primary Care Physician: Dr. Madeleine Mejia DO Reason For Visit: STROKE-LIKE SYMPTOMS Diagnosis Discharge Diagnosis (1) Stroke-like symptom: Status: Acute Code(s): R29.90 - Unspecified symptoms and signs involving the nervous system (2) Acute hypokalemia: Status: Acute Code(s): E87.6 - Hypokalemia Plan: 1. Paresthesias of the face and arms-etiology unknown #2 essential hypertension #3 hyperlipidemia #4 chronic migraine #5 hypokalemia-secondary to diuretic usage #6 presyncope-etiology unknown #7 chronic edema of the right arm due to vascular reasons Medications at Discharge Home Medications amlodipine 10 mg tablet 10 mg PO DAILY 01/07/18 metoprolol succinate 50 mg tablet,extended release 24 hr 50 mg PO DAILY 01/07/18 clopidogrel 75 mg PO DAILY 12/14/19 omeprazole 40 mg PO DAILY 12/14/19 apixaban 5 mg PO BID #74 tab 12/16/19 aspirin 81 mg tablet,delayed release 81 mg PO DAILY #90 tab 02/14/21 furosemide [Lasix] 60 mg PO DAILY #90 tab 03/25/21 potassium chloride 20 meq PO BID #120 cap 03/25/21 potassium chloride 20 meq PO BID #120 tab 03/25/21 Hospital Course Operations None Procedures None Summary of Care Provided Minutes Spent on Discharge: 30 Hospital Course: 66-year-old white female was seen in the emergency room at [facility] with complaints of tingling and numbness of her arms and face along with a feeling that she might pass out. Stroke team was activated, patient went to CT imaging and her scan was unremarkable, CT of the head and neck was also unremarkable. CT also questioned the possibility of a right vocal cord paralysis-patient had no symptoms however. Patient was placed into observation status on PCU, she underwent a brain MRI that showed no evidence of an acute stroke, she was seen by PT and OT as well as speech therapy who did not feel that she needed outpatient PT OT or speech therapy. On 03/25/2021, patient was seen and examined: On examination she appeared in good health and spirits, she does not appear to be in any distress. Vital signs as documented. Skin warm and dry and without overt rashes. Neck without JVD, thyroid appears normal, trachea is midline, neck is supple. Lungs clear, normal air movement was noted. Heart exam notable for regular rhythm, normal sounds and absence of murmurs, rubs or gallops. Abdomen unremarkable and without evidence of organomegaly, masses, or abdominal aortic enlargement, bowel sounds are present in all 4 quadrants, no abdominal tenderness was noted. Extremities nonedematous, no cyanosis was noted, no clubbing was noted. Neuro: Cranial nerves II through XII are grossly intact, no focal motor deficits were noted, sensation to light touch and pinprick is intact, motor exam 5/5 throughout. Psych: Patient is alert and oriented x3, she does not appear anxious or depressed, she does not appear agitated. On 03/25/2021, I called her PCPs office to discuss her medical care with them, I talked to a nurse about the patient's CT scan that showed a possible vocal cord paralysis. They will follow-up with that as an outpatient. Patient was discharged in stable condition on 03/25/2021. Weight / BMI Weight Weight: 80.7 kg Body Mass Index (BMI) 30.5 ABG / Lab / Microbiology Data Result Diagrams: 03/25/21 04:19 03/25/21 04:19 Laboratory: Laboratory Results - last 24 hr 03/24/21 19:50: WBC 9.3, RBC 4.89, Hgb 13.5, Hct 41.2, MCV 84.3, MCH 27.6, MCHC 32.8, RDW Std Deviation 41.4, RDW Coeff of Matthew 13.5, Plt Count 343, MPV 10.9, Immature Gran % (Auto) 0.500, Neut % (Auto) 61.1, Lymph % (Auto) 28.4, Young % (Auto) 7.1, Eos % (Auto) 2.3, Baso % (Auto) 0.6, Absolute Neuts (auto) 5.7, Absolute Lymphs (auto) 2.64, Nucleated RBC % 0 03/24/21 19:50: PT 15.0 H, INR 1.2, APTT 31.8 03/24/21 19:50: Sodium 138, Potassium 2.3 L*, Chloride 96 L, Carbon Dioxide 26.0, Anion Gap 16 H, BUN 28 H, Creatinine 1.21 H, Estim Creat Clear Calc 38.96, Est GFR (MDRD) Af Amer 57 L, Est GFR (MDRD) Non-Af 47 L, BUN/Creatinine Ratio 23.1 H, Glucose 153 H, Calcium 9.3, Troponin I High Sens 3 03/24/21 19:53: POC Glucose 152 H 03/25/21 04:19: WBC 6.9, RBC 4.32, Hgb 11.7 L, Hct 36.7 L, MCV 85.0, MCH 27.1, MCHC 31.9 L, RDW Std Deviation 42.0, RDW Coeff of Matthew 13.4, Plt Count 282, MPV 11.0, Immature Gran % (Auto) 0.100, Neut % (Auto) 69.0, Lymph % (Auto) 22.4, Young % (Auto) 6.4, Eos % (Auto) 1.7, Baso % (Auto) 0.4, Absolute Neuts (auto) 4.8, Absolute Lymphs (auto) 1.55, Nucleated RBC % 0 03/25/21 04:19: Sodium 141, Potassium 3.0 L, Chloride 104, Carbon Dioxide 28.0, Anion Gap 9, BUN 16, Creatinine 0.71, Estim Creat Clear Calc 47.14, Est GFR (MDRD) Af Amer 105, Est GFR (MDRD) Non-Af 87, BUN/Creatinine Ratio 22.5 H, Glucose 119 H, Calcium 8.3 L, Triglycerides 132, Cholesterol 141, LDL Cholesterol 82, VLDL Cholesterol 26, HDL Cholesterol 33 L 03/25/21 04:19: Hemoglobin A1c 6.3 H Microbiology: Microbiology 03/25/21 15:10 Nasal Secretion SARS-CoV-2 Antigen (Rapid) - Final Radiography Diagnostic Testing: Radiology Impression Brain CT 03/24/21 19:56 IMPRESSION: 1. Normal CT brain. N.B. : The above Results were Read Back by Rafat Herzog MD to , AA, and understanding confirmed on 03/24/2021 20:21:21 (ET). Electronically Signed: Rafat Herzog MD at 20:10 EST Tel , Service support , Head/Neck CTA 03/24/21 19:57 IMPRESSION: Patent craniocervical arteries without occlusion or high-grade stenosis. Possible right vocal cord paralysis, ENT outpatient follow-up advised. N.B. : The above Results were Read Back by Rafat Herzog MD to , AA, and understanding confirmed on 03/24/2021 20:49:26 (ET). Electronically Signed: Rafat Herzog MD at 20:32 EST Tel , Service support , Chest X-Ray 03/24/21 20:07 IMPRESSION: Normal x-ray examination of the chest. Electronically Signed: Rafat Herzog MD at 20:40 EST Tel , Service support , Brain MRI 03/25/21 11:05 IMPRESSION: Motion artifact. No evidence for acute infarct. Minimal chronic white matter changes. Paranasal sinus inflammatory disease. at 1302 Reported and signed by: Isabel Hurt MD Electronically Signed: Isabel Hurt MD at 13:01 EST Tel , Service support , D/C Instructions Discharge Diet: No restrictions Weight Bearing Status: Full weight bearing Meaningful Use Info Meaningful Use Diagnoses (Choose all that apply): None applicable Discharge Plan Admission Admit Date/Time: 03/24/21 20:57 Primary Reason for Your Visit: pre syncope, hypokalemia Attending Provider: Zachary Roldan Primary Care Provider: Madeleine Mejia Instructions Additional Instructions / Restrictions: Your physician's office will contact you regarding the possibilty of getting monoclonal antibodies Discharge Orders/Prescriptions Prescriptions: New furosemide [Lasix] 20 mg tablet 60 mg PO DAILY Qty: 90 RF: 0 potassium chloride 10 mEq capsule, extended release 20 meq PO BID Qty: 120 RF: 0 Continued amlodipine 10 mg tablet 10 mg PO DAILY RF: 0 metoprolol succinate 50 mg tablet extended release 24 hr 50 mg PO DAILY RF: 0 clopidogrel 75 MG tablet 75 mg PO DAILY RF: 0 omeprazole 40 MG capsule,delayed release(DR/EC) 40 mg PO DAILY RF: 0 apixaban 5 MG tablet 5 mg PO BID Qty: 74 RF: 0 aspirin 81 mg tablet,delayed release (DR/EC) 81 mg PO DAILY Qty: 90 RF: 3 Changed potassium chloride 10 mEq tablet extended release 20 meq PO BID Qty: 120 RF: 11 Discontinued triamterene-hydrochlorothiazid 37.5-25 mg capsule 1 cap PO DAILY RF: 0 furosemide [Lasix] 40 mg tablet 40 mg PO DAILY Qty: 30 RF: 11 Referrals / Follow Up: Madeleine Mejia DO [Primary Care Provider] - In 1 Week Disposition Disposition (needs filled in before D/C Order can be placed): Home, Self Care Charges/Coding Visit Charges OBSV E&M: 57004 Observation care discharge
== END 2021-03-25 19:30 | disposition home or self-care (01) ==
LOC: ED 21:09 → PCU 21:28
PROVIDERS: Admitting Provider Hospitalist; Emergency Provider Emergency Medicine; PCP Family Medicine; Visit Provider Internal Medicine
DX: U07.1 COVID-19 (principal); N17.9 Acute kidney failure, unspecified; E78.5 Hyperlipidemia, unspecified; I10 Essential (primary) hypertension; R55 Syncope and collapse; Z79.82 Long term (current) use of aspirin; E87.6 Hypokalemia; Z79.02 Long term (current) use of antithrombotics/antiplatelets; Z79.01 Long term (current) use of anticoagulants; M19.90 Unspecified osteoarthritis, unspecified site; Z79.899 Other long term (current) drug therapy; R47.81 Slurred speech; R94.31 Abnormal electrocardiogram [ECG] [EKG]; R53.1 Weakness; R29.810 Facial weakness
CPT/HCPCS: 36415; 70450; 70496; 70498; 70551; 71045; 80048; 80061; 82962; 83036; 84484; 85025; 85610; 85730; 87426; 92610; 93005; 94762; 96361; 96365; 96366; 96375; 96376; 97165; 99218; 99284; J7030; Q9957; A4216; G0378; J2405

== ENCOUNTER 2021-04-12 08:45 | Outpatient (CLI) | payer MEDICARE, MEDICAID, SELFPAY ==
[2021-04-12 09:37] LABS: ALB/GLOB Ratio 0.9 RATIO (0.9-2.4); AST(SGOT) 17 U/L (15-37); Alanine Aminotransfer ALT/SGPT 25 U/L (13-56); Albumin, Serum 3.9 g/dL (3.2-5.0); Alkaline Phosphatase 95 U/L (45-117); Anion Gap 5 (5-15); BUN 31 mg/dL (7-18); BUN/Creat Ratio 32.7 RATIO (10-20); Calcium,Total 9.4 mg/dL (8.5-10.1); Chloride 100 mmol/L (98-107); Creatinine, Serum 0.95 mg/dL (0.55-1.02); EST Glomerular Filtration Rate 63 mL/min (>60); Est Glom Filt Rate - Afr Amer 76 mL/min (>60); Globulin 4.3 g/dL (2.2-4.2); Glucose 127 mg/dL (74-106); Potassium 3.7 mmol/L (3.5-5.1); Protein, Total 8.2 g/dL (6.4-8.2); Sodium Level 136 mmol/L (136-145)
== END 2021-04-12 23:59 | disposition short-term general hospital (02) ==
LOC: LAB 08:47
PROVIDERS: PCP Family Medicine; Referring Provider Family Medicine; Visit Provider Family Medicine
DX: E87.6 Hypokalemia (principal)
CPT/HCPCS: 36415; 80053

== ENCOUNTER 2021-05-24 08:26 | Outpatient (CLI) | payer MEDICARE, MEDICAID, SELFPAY ==
[2021-05-24 09:47] LABS: ALB/GLOB Ratio 0.9 RATIO (0.9-2.4); AST(SGOT) 15 U/L (15-37); Alanine Aminotransfer ALT/SGPT 22 U/L (13-56); Albumin, Serum 3.7 g/dL (3.2-5.0); Alkaline Phosphatase 85 U/L (45-117); Anion Gap 5 (5-15); BUN 20 mg/dL (7-18); BUN/Creat Ratio 22.8 RATIO (10-20); Calcium,Total 9.2 mg/dL (8.5-10.1); Chloride 102 mmol/L (98-107); Creatinine, Serum 0.88 mg/dL (0.55-1.02); EST Glomerular Filtration Rate 68 mL/min (>60); Est Glom Filt Rate - Afr Amer 83 mL/min (>60); Globulin 3.9 g/dL (2.2-4.2); Glucose 118 mg/dL (74-106); Potassium 3.5 mmol/L (3.5-5.1); Protein, Total 7.6 g/dL (6.4-8.2); Sodium Level 139 mmol/L (136-145)
== END 2021-05-24 23:59 | disposition home or self-care (01) ==
LOC: LAB 08:29
PROVIDERS: PCP Family Medicine; Visit Provider Family Medicine
DX: E87.6 Hypokalemia (principal); R10.9 Unspecified abdominal pain
CPT/HCPCS: 36415; 80053

== ENCOUNTER → 2021-08-21 | Outpatient (CLI) | payer MEDICARE, MEDICAID, SELFPAY ==
--- NOTE | 2021-08-21 07:29 | CT_ITS ---
STUDY: CT LEFT LOWER EXTREMITY WITHOUT CONTRAST REASON FOR EXAM: Left knee osteoarthritis with varus deformity, surgical planning. TECHNIQUE: Transaxial CT imaging of the lower extremity was performed. Coronal and sagittal images were reformatted. Individualized dose optimization techniques were used for this CT. COMPARISON: None. FINDINGS: Knee: There are marginal osteophytes and severe joint space narrowing of the medial femorotibial compartment (coronal reconstruction 31). There are small marginal osteophytes with preservation of joint space of the lateral femorotibial compartment. There are marginal osteophytes with joint space narrowing of the patellofemoral compartment (axial image 292). There is a small left knee joint effusion. There is a popliteal cyst (sagittal reconstruction 21). There is mild vascular calcification. Hip: There is a left hip arthroplasty without evidence of complication. Ankle: Normal tibiotalar, posterior subtalar, talonavicular and calcaneocuboid articulations. There is a posterior calcaneal enthesophyte with thickening of the distal Achilles tendon consistent with tendinosis (sagittal reconstruction 16). CT/Extremity Lower without Contra IMPRESSION: Left knee osteoarthritis. Electronically Signed: Colton Lau MD at 15:00 EDT ,
== END | disposition home or self-care (01) ==
LOC: CT 07:22
PROVIDERS: PCP Family Medicine; Referring Provider Specialist; Visit Provider Specialist
DX: M21.061 Valgus deformity, not elsewhere classified, right knee (principal); M21.162 Varus deformity, not elsewhere classified, left knee
CPT/HCPCS: 73700

== ENCOUNTER 2021-09-04 11:26 | Observation (INO) | payer MEDICARE, MEDICAID, SELFPAY ==
--- NOTE | 2021-08-21 07:21 | EKG12_ITS ---
Test Reason : PREOP Blood Pressure : / mmHG Vent. Rate : 058 BPM Atrial Rate : 058 BPM P-R Int : 196 ms QRS Dur : 092 ms QT Int : 454 ms P-R-T Axes : 043 028 069 degrees QTc Int : 445 ms Sinus bradycardia Otherwise normal ECG Confirmed by KIRSTIN VANESSA, HEMA ([id number]), slot editor NATALIA YANCEY ([id number]) on 08/21/2021 1:17:21 PM Referred By: Fredy Marin Confirmed By:HEMA FULTON MD
[2021-08-21 10:30] LABS: Absolute Lymphocyte Count 1.48 X10^3/uL (0.83-4.51); Absolute Neutrophil Count 4.4 X10^3/uL (2.0-7.7); Basophil# 0.06 X10^3/uL; Basophil% 0.9 % (0-1); Eosinophil# 0.16 X10^3/uL; Eosinophils% 2.4 % (0-5); Hemoglobin 13.1 g/dL (12.0-15.0); Lymphocyte # 1.48 X10^3/ul (0.83-4.51); Lymphocyte % 22.3 % (19-41); Mean Corpuscular Hgb 27.4 pg (27.0-32.0); Mean Corpuscular Volume 85.8 fL (81-99); Mean Platelet Vol. 11.1 fl (6.2-12.0); Monocyte# 0.52 X10^3/uL; Monocyte% 7.8 % (0-10); NRBC Flagged by Analyzer 0 % (0-5); Neutrophil # 4.37 X10^3/uL (2.7-7.7); Platelet Count 304 K/mm3 (150-450); RBC Distribution Width CV 13.5 % (11.6-14.6); RBC Distribution Width SD 42.6 fl (35.1-43.9); Red Blood Count 4.78 M/mm3 (4.2-5.4); White Blood Count 6.6 K/mm3 (4.4-11.0)
--- NOTE | 2021-08-21 10:50 | RAD_ITS ---
STUDY: XR Chest 2 Views 08/21/2021 10:53 AM REASON FOR EXAM: Female, 66 years old. CHEST PAIN PREOP COMPARISON: 03/24/2021 TECHNIQUE: XR Chest 2 Views FINDINGS: There is no demonstrated pleural abnormality. Right subclavian stent graft. There are multiple metallic clips in the right axilla. This is consistent for a prior axillary dissection. There are mastectomy changes noted. Normal heart size. Normal mediastinum. Normal miguel. Prominent appearing increased interstitial lung markings. Normal visualized pulmonary arteries. There is atherosclerotic calcification of the aortic arch with tortuosity. There are diffuse degenerative changes of the visualized thoracic spine. There is degenerative osteoarthritis of the bilateral shoulders. There is no demonstrated abnormality of the visualized soft tissue structures of the upper abdomen. RAD/Chest PA and Lateral IMPRESSION: There are no acute findings. Electronically Signed: Claude Kowalski MD at 18:01 EDT ,
[2021-08-21 10:54] LABS: Albumin, Serum 3.7 g/dL (3.2-5.0); Anion Gap 9 (5-15); BUN 19 mg/dL (7-18); BUN/Creat Ratio 18.1 RATIO (10-20); Calcium,Total 8.9 mg/dL (8.5-10.1); Chloride 103 mmol/L (98-107); Creatinine, Serum 1.05 mg/dL (0.55-1.02); EST Glomerular Filtration Rate 56 mL/min (>60); Est Glom Filt Rate - Afr Amer 67 mL/min (>60); Glucose 116 mg/dL (74-106); Magnesium 2.1 mg/dL (1.6-2.6); Potassium 3.3 mmol/L (3.5-5.1); Sodium Level 140 mmol/L (136-145)
[2021-08-21 10:57] LABS: Hemoglobin A1c 6.2 % (3.8-5.6)
--- NOTE | 2021-08-30 08:41 | HP.PCM_ITS ---
History and Physical History and Physical? Patient Name: Lisa Bourne: 1955 From:? KAITLYNN NAVARRO PA-C? DATE OF SURGERY:? 09/04/2021 SCHEDULED PROCEDURE: Robotic-assisted left total knee arthroplasty HISTORY OF PRESENT ILLNESS: Patient is a 66-year-old female with a chief complaint of bilateral knee pain, left greater than right. Patient complains of constant pain with 2-3 year duration. The pain is 8 on a scale of 10 on the left, 5 on the right, 10 with activity. The pain is increased with walking, stairs. The patient notes start up pain. She reports activity related swelling bilaterally, greater on the left, as well as cracking and locking in the knees. She denies numbness and tingling in either leg. The pain is located over medial joint line and lateral joint line on the left. MJL and LJL on right as well. crepitus bilaterally. associated with significant swelling bilaterally. The patient states that the pain does not awaken them at night. Activity modification include a reduced ability to perform normal daily activities without pain. Previous treatments include rest, Ibuprofen with minimal relief, Aleve with relief, Tylenol.? ? REVIEW OF SYSTEMS: Review Of Systems: Constitutional: Denies change in appetite, fever and weight change. Cardiovasular: Denies chest pain, heart murmur and irregular heartbeat. Respiratory: Denies cough, pneumonia, shortness of breath, tuberculosis and wheezing. Gastrointestinal: Denies constipation, diarrhea, heartburn, nausea, rectal itching, bloody stools and vomiting. Genitourinary: . (F Genital Sx) Reports incontinence. Musculoskeletal: Reports leg swelling, trouble walking and weakness, but denies pain and problematic toenails. Skin: Denies Raynaud's, history of shingles and tattoo. Neurological: Denies ambulatory dysfunction, dizziness, numbness/tingling and tremor. Psychiatric: Denies anxiety, insomnia and stress. Hematologic/Lymphatic: Reports past transfusion, but denies anemia and bleeding/bruising tendency. Reviewed, no changes. PAST MEDICAL HISTORY: Advance Care Plan: Other Directive, LIVING WILL Effective Date: 05/16/2021 Other Directive, POA Effective Date: 05/16/2021 Past Medical History: Medical Problems: Acid Reflux, Arthritis, High Blood Pressure, History Of Blood Clots/ DVT, Sleep Apnea, Vascular Disease/ Peripheral, Thoracic Outlet Syndrome Accidents: None Surgical Hx: Section - 1976, 1978, 1981 KAYY Gallbladder - 1982 Hysterectomy - 1999 Hip Replacement LT - 2015 DR MADELAINE SULTANA Hip Replacement RT - 2016 DR MADELAINE SULTANA Stent - FOR THORACIC OUTLET SYNDROME Anesthesia Complications: Anesthesia Complications - WAKES UP SLOWLY Assistive Devices: Cpap, Glasses Reviewed, no changes. SOCIAL HISTORY: Social History: Marital: .Occupation: Retired [employer] MANAGER.Work Status: Currently Working.Hand Dominance: Right- handed. Personal Habits:? Cigarette Use: Never Smoked Cigarettes.Smokeless Tobacco: Never Used Smokeless Tobacco.E-Cigarette Use: Never used.Alcohol: Occasionally.Drug Use: Denies Use.Enjoy Exercising: Never Exercises. Reviewed, no changes. VITALS: Ht: 64.2 Wt: 181lb 2oz Wt k.158 BMI: 30.9 BP: 126/82 Pulse: 70 Resp: 14 T: 97.9 T: 36.6C Pain Level: 3 O2SatR: 99 ALLERGIES: No Known Drug Allergy? MEDICATIONS: Metoprolol Succinate ER 50 mg 1 by mouth every day, Furosemide 40 mg 1 by mouth every day, Potassium Chloride Darleen ER 20 Meq, Triamterene/Hydrochlorothiazide 37.5-25 mg by mouth daily, Omeprazole 40 mg 1 by mouth every day, Aspirin Adult Low Dose 81 mg by mouth 1 a day, Amlodipine Besylate 10 mg 1 by mouth every day, Eliquis 5 mg 1 by mouth twice a day PRE-OP EXAM:? General appearance:NORMAL? ? ? Other: Eyes: Conjunctivae and lids: NORMAL? Pupils: ERR Ears, Nose, Mouth, and Throat: NORMAL? Other: Inspection of lips, teeth and gums: NORMAL? ?Other: Neck: Examination of neck: no masses noted. Respiratory: Assessment of respiratory effort: NORMAL? ?Other: ?Auscultation of lungs: clear to auscultation no wheezes, rhonchi or rales. Cardiovascular:? Auscultation of heart: regular rate and rhythm, no murmurs, gallops or rubs. Exam of carotid arteries: NORMAL? ?Other: Gastrointestinal:? Exam of abdomen: soft, nontender, nondistended bowel sounds present. Lymphatic:? Palpation of nodes in neck:? NORMAL? ? ?Other: ? Palpation of nodes in Axillae: NORMAL? ?Other: Neurological: see below Psychiatric:? Orientation to time, place and person: NORMAL? ? ?Other: ?Mood and affect: NORMAL? ?Other: PHYSICAL EXAMINATION: Exam: Const: Appears healthy.? No signs of apparent distress present.? Alert and oriented x 3.? Musculo: Antalgic gait, mild valgus thrust on the right? Knees: ?Insp/Palp: Right knee: large effusion. Correctable valgus alignment. Crepitus with motion. Firm end point with varus and valgus stress. Firm end point with anterior posterior drawer testing. Tenderness over medial joint line and lateral joint line line. Motion is 10-100 degrees with increased pain with flexion. Left knee: large effusion. Correctable varus alignment. medial joint line tenderness. Firm end point with varus and valgus stress. Firm end point with anterior posterior drawer testing. Motion is 10-95 degrees with increased pain with flexion.?? Skin: Skin is warm, dry and intact.? Neuro: Sensation to light touch is intact in the lower extremities deep peroneal, lower extremities dorsal cutaneous, lower extremities saphenous, lower extremities sural and lower extremities tibial nerve distribution. IMAGING STUDIES: IMPRESSION: 1.? Grade 4 osteoarthritis left knee 2.? GERD 3 osteoarthritis 4 hypertension 5.? History of blood clot/DVT?Eliquis and aspirin use status post stent in right upper extremity 6.? Thoracic outlet syndrome?status post stent 7.? DERICK 8.? Peripheral vascular disease PLAN: +history of DVT of RUE.- eliquis use? Patient denies history of PE, open wounds or sores over the body, no allergies to antibiotics and no current antibiotic use. No current dental issues will resume Aspirin 81 and eliquis post op day 1 for DVT prophylaxis postoperatively At this time patient has consented to proceed with a robotic-assisted left total knee arthroplasty.? Dr. Marin did discuss and review with the patient all treatment options including surgical versus nonsurgical options.? Patient does wish to proceed with the above-stated procedure.? Potential risk, benefits, and complications of the procedure were discussed in detail including but not limited to , infection, nerve and blood vessel damage, persistent pain, numbness, tingling, paresthesias, blood clot, pulmonary embolism, and requirement for possible further surgery.? The patient expressed full unders tanding and has no further questions for the doctor.? Patient does agree to proceed with the above-stated procedure and has signed the surgery consent form. I have reviewed the [place] Automated Rx Reporting System (OARRS) report for this patient for refill pattern and other prescriber involvement as part of the appropriate surveillance for the provision of acute and chronic controlled medications.? The report was requested and reviewed on the date of this entry and was considered in the prescribing process. Discussed with the patient the risks associated with the COVID-19 virus including the risk of exposure while at the hospital.? The patient was reassured local hospitals have low infection rates and taken all necessary precautions to limit patient exposure to COVID-19.? Limiting the patient's time in the hospital may decrease their exposure to COVID-19.? The patient was notified that we will need to comply with any screening or testing the hospital wishes to perform and that surgery may be delayed for any positive test results. ___? I have re-examined the patient.? There are no clinical changes since date of exam. ___? See progress notes for changes. ___? Dictated on admission Date: ? ? ?Time: Signature:
[2021-09-04] VITALS (14 sets, daily range): BP systolic 94–127; BP diastolic 49–71; PULSE 58–71; RESP 16–21; TEMP 36.1–37.2; O2SAT 94–98; BMI 30.9; BMI 31.0
--- NOTE | 2021-09-04 | KNEE_PTH ---
PATIENT: LEXUS PEOPLES LOC: [facility] U#:[id number] AGE/SX: 66/F ROOM: [facility] [place] RE09/04/[address]: Dr. Fredy Marin MD : 1955 BED: 1 DIS: 09/05/2021 SPEC #: [id number] RECD: 09/04/21 12:55 STATUS: SANNA REElias #: [id number] GOOD: 09/04/21 00:[address]: Fredy Marin DEPT: SURGICAL PATHOLOGY RECD BY: Ab Overton ENTERED: 09/04/21 12:55 SP TYPE: TOTAL KNEE OTHR DR: MD Dr. Madeleine Valdovinos DO Tissues: Knee, NOS Procedures: Decalcification bone/plaque Surgery Specimen Level IV HEADER OPERATION: ERAS, total knee replacement robotic arm assist PRE-OP DIAGNOSIS: Left knee primary osteoarthritis TISSUE SUBMITTED: Debrided bone and tissue left knee MICROSCOPIC DIAGNOSIS Bone and tissue, left knee, total knee replacement/resection: Pieces of bone with degenerative osteoarthritic changes. Fibroadipose tissue, fibroconnective tissue and reactive synovial tissue. GOSIA:arlet 09/06/2021 MICROSCOPIC DESCRIPTION Slides are reviewed. GROSS DESCRIPTION Received is one container designated debrided bone and tissue left knee. The specimen consists of multiple fragments of robles-yellow bone measuring in aggregate 11 x 10 x 4 cm. A piece of soft tissue is noted attached to one of the pieces of bone measuring 4.5 x 2 x 1 cm. A number of bony fragments contain articular surfaces consistent with tibial plateau and femoral condyle and displaying prominent osteophyte formation, eburnation, and bone erosion. [employer] Manager sections are submitted in two cassettes as follows: 1 - soft tissue, 2 - bone after decalcification. / GOSIA:arlet 09/04/2021 TC:5 [facility]: [id number], [id number]
--- NOTE | 2021-09-04 07:03 | PCM.OPRPT ---
Report of Operation Date of Procedure: 09/04/21 Pre-Operative Diagnosis: Left knee primary osteoarthritis Post-Operative Diagnosis: Left knee primary osteoarthritis Surgery/Procedure Performed:: Left knee minimally invasive robotic assisted total knee replacement Description of Surgical Findings:: Stable knee with good patella tracking Surgeon: Fredy Marin media intern: Epi Roberson Type of Anesthesia: Spinal Anesthesiologist: Chon Collado Special Medications: 2 g Ancef, 1 g TXA at incision, 1 g TXA closure, 10 mg Decadron, joint cocktail (5 mg Duramorph, 30 mL of 0.5% Ropivicaine, 1000 units of epinephrine, 30 mg of Toradol) Specimen's removed: Bony cuts Estimated Blood Loss (mL): 50 Fluids Replaced: 700 mL crystalloid Description of Procedure: Implants used: 1. [place] size 3 triathlon cruciate retaining distal femoral press-fit component 2. Saul size 4 press-fit tritanium tibial baseplate 3. Saul X3 10 mm CS polyethylene 4. Saul X3 29 asymmetric patella Brief history operative indications: 66-year-old f with history of left knee osteoarthritis with radiographic findings with loss of joint space, osteophyte formation and subchondral sclerosis. Failed conservative measures as mentioned in the H&P. Discussion of total knee arthroplasty as well as risk and benefits were discussed the patient including but not limited to blood loss, DVTs, PEs, neurovascular damage, general risk of anesthesia including loss of life, and stiffness or instability were discussed with patient. Patient demonstrated understanding and was able to sign informed consent. Procedure: On the date of procedure patient's left lower extremity was marked in the preoperative area. The patient was then taken back to the operating room where the patient was placed on the table in the supine position. All bony prominences were identified a well-padded. Anesthesia assumed control of the C-spine and airway and remained controlled throughout the remainder of the procedure. A tourniquet was placed on the left upper thigh and the leg was prepped in a sterile fashion. The surgeon then scrubbed at this time .Upon reentering the room left lower extremity was draped in a standard orthopedic fashion. A timeout was then called and everyone agreed upon the side, the site, the procedure to be performed, patient's identity and antibiotics given. Esmarch bandage was used to exsanguinate the extremity and the tourniquet was placed up to 250 mmHg with the knee in flexion. A midline skin incision was made and sharp dissection was taken down through skin subcutaneous tissue and fat. The standard medial parapatellar incision was made and the patella was subluxed laterally. An Appropriate deep MCL release was done and the fat pad was resected. Our attention was then directed to the patella. The patella was everted and a flat resection was made. The knee was then flexed up in 2 femoral pins were placed inside the incision and 2 tibial pins were placed outside the incision in the medial tibia bicortically. Once this was completed the 2 checkpoints in the femur and tibia were placed. Knee was then flexed up and the bony landmarks were registered. Once this was completed knee was taken through range of motion and manually stressed allowing us to a plan for an appropriate tibial cut. The robotic arm was brought into the field sterilely and checkpoint and saw were registered. Based on the patient's deformity the tibial cut was made neutral to the tibial axis At this time the tensioner was then placed in the joint and ligament tension was checked at 90 degrees and full extension. Based on the patient's ligamentous tension appropriate adjustments were made to the operative plan and ligament releases were done. Once we were happy with our operative plan with balanced flexion and extension gaps our attention was directed to the femur. The robot was brought into the field sterilely and registered. Posterior condylar cuts, anterior chamfer cuts and anterior cuts were appropriately made for a size 3 femur. When these were completed the saws were switched out in the distal femoral and posterior chamfer cuts were made. Protecting the soft tissue throughout this time. A size 4 tibial base plate was selected. the knee was flexed to 90 degrees and the soft tissues and posterior osteophytes were removed from the joint. 40 cc of the periarticular injection was injected into the posterior medial corner of the joint. The appropriate trials were then placed on the femur and tibia. A trial polyethylene was trialed to ensure proper balancing and stability of the knee. The appropriate tibial internal rotation was then marked with a bovie. Our attention was then directed to the patella. The lug holes were drilled and the patella trial was placed. Patellar tracking was checked and deemed appropriate. Once we were happy lug holes were drilled for the femur and trial components were removed. the tibia was subluxed and pinned into place and the keel was punched and drilled appropriately. Final components were verified and opened, and cement was mixed in a vacuum. [employer] Simplex cement was used. The wound was copiously irrigated with normal saline. When the cement was ready the components were impacted into place starting with the tibia, femur and finally cementing the patella. The trial poly component was placed and the knee was placed in full extension. All excess cement was removed in the process. Once the cement had cured the tracking, alignment and balance were verified and a size 10 mm CS polyethylene component was placed. Once the final components were placed a 3-minute dilute Betadine lavage was performed followed by an Irrisept lavage was performed and the wound was copiously irrigated with normal saline solution and the periarticular injection was given. The wound was closed in a layer farr fashion using #1 vicryl interrupted sutures for the arthrotomy, 2-0 interrupted Vicryl suture for the subcuticular layer and sukumar for final skin closure. A sterile compressive dressing was then placed. The patient was then awakened from anesthesia, transferred to the [place] and transferred to the PACU for recovery. Post op plan DVT ppx: Patient will resume Eliquis and aspirin on postop day 1, thigh high compression stockings Follow up: in office in 2 weeks for wound check PT: to start POD #0 at hospital, outpatient PT should be arranged. My physician talent acquisition assistant was a vital part of this case. He was important in appropriate retraction during the case, and protection of soft tissues during bony cuts. His intimate knowledge of the case and my steps aided in safe and expedient completion of the procedure as well as appropriate position of the leg during the case. He was also vital in assisting with closure under my direct supervision. Due to the complexity of this case robotic arm was used to assist in the surgery to improve accuracy and clinical outcomes. Complications No intraoperative complications Admit VTE Documentation VTE Present on Admission: No VTE Mechan Device Prophylaxis: SCD's and Thigh High ROMELIA Hose VTE Pharm Prophylaxis ordered?: Yes
[2021-09-04 08:05] LABS: Bedside Glucose 182 mg/dL (74-106)
[2021-09-04] MEDS: Lactated Ringers 1,000 ML 15 ML IV (08:13)
[2021-09-04] MEDS: Celecoxib 200 MG Capsule 400 MG PO (08:16)
[2021-09-04] MEDS: Acetaminophen 500 MG Tablet 1000 MG PO ×3 (08:17→21:04)
[2021-09-04] MEDS: Gabapentin 600 MG Tablet PO (08:17)
[2021-09-04] MEDS: Cefazolin 2 GM in 0.9% Normal Saline 100 ML IV (09:49)
[2021-09-04] MEDS: dexAMETHasone 10 MG/ML Vial IV (09:52)
[2021-09-04] MEDS: Lactated Ringers 1,000 ML 999 ML IV (12:07)
--- NOTE | 2021-09-04 12:15 | RAD_ITS ---
STUDY: X-RAY - LEFT KNEE REASON FOR EXAM: Female, 66 years old. post op -- AP and Lateral xray of operative knee in PACU TECHNIQUE: 2 view(s) of the knee. COMPARISON: None. FINDINGS: Normal visualized distal femur. Normal visualized proximal tibia and fibula. Normal proximal tibiofibular articulation. Status post recent total knee arthroplasty with subcutaneous emphysema and skin sukumar.. The soft tissue structures are unremarkable. RAD/Knee 1 or 2 Views IMPRESSION: Status post recent total knee arthroplasty. Electronically Signed: Schuyler Rich MD at 12:36 EDT ,
[2021-09-04] MEDS: Lactated Ringers 1,000 ML 125 ML IV ×3 (13:25→23:00)
--- NOTE | 2021-09-04 13:56 | PN.HOSP_ITS ---
Subjective Subjective Consult for postop medical management: 66-year-old female with past medical history of hypertension history of DVT/ sleep apnea/thoracic outlet syndrome status post stent who comes in for elective left total knee replacement. Her pain has been going on for couple of years. Is worse with going up the stairs. This is associated with activity related swelling. Patient underwent left knee minimally invasive robotic assisted total knee replacement today. Her pain is controlled. She received an adductor canal bl ock. She denied any chest pain or dizziness. She is not on oxygen. She ambulated with therapy. She however complains of dizziness while she was sitting in the chair. Objective Data Objective Data Vital Signs: Vital Signs Temp Pulse Resp BP Pulse Ox 97.6 F L 65 21 H 97/59 L 98 09/04/21 13:00 09/04/21 13:00 09/04/21 13:00 09/04/21 13:00 09/04/21 13:00 Oxygen Flow Rate (L/min) 4 Oxygen Delivery Method Nasal Cannula Weight: 81.919 kg Body Mass Index (BMI) 30.9 Intake & Output: Intake and Output for Last 24 Hours 09/02/21 09/03/21 09/04/21 23:59 23:59 23:59 Intake Total 2212 / 2212 Balance 2212 / 2212 Lab / Micro Data Result Diagrams: 08/21/21 10:01 08/21/21 10:01 Labs: Laboratory Results - last 24 hr 09/04/21 08:01: POC Glucose 182 H Micro: Microbiology 08/21/21 10:01 Nasal Secretion Nasal Screen MRSA/MSSA - Final Radiography Diagnostic Testing: Radiology Impression Knee X-Ray 09/04/21 12:15 IMPRESSION: Status post recent total knee arthroplasty. Electronically Signed: Schuyler Rich MD at 12:36 EDT , Physical Exam Narrative Physical exam: General: Alert, Oriented x3, appears comfortable HEENT: Atraumatic Oral: Moist Mucosa Neck: Supple Lungs: Clear to auscultation Cardiovascular: HS I+II, regular, no murmurs Abdomen: Bowel Sounds Present, Soft, Non Tender Extremities: No edema, cooling mat over the left knee Skin: No rashes, No breakdown Neurological: Grossly intact Psych/Mental Status: Appropriate Assessment & Plan Assessment/Plan (1) Status post revision of total knee replacement: PLAN: Plan 1.POD #0, status post left knee minimally invasive robotic assisted total knee replacement Pain is fairly controlled, continue on Toradol, oxycodone as needed Follow-up on orthopedics recommendations PT/OT to evaluate and treat 2. Hypertension, fairly controlled, Continue metoprolol, amlodipine, triamterene hydrochlorothiazide 3. Thoracic outlet syndrome status post stent with resultant right upper extremity lymphedema Continue on Plavix, aspirin 4. DERICK on CPAP 6. DVT PPx - apixaban Charges/Coding Visit Charges Office Visits / Consults: 03027 OV L5 New
[2021-09-04] MEDS: Cefazolin 1 GM/50 ML BAG IV (17:35)
[2021-09-04] MEDS: Potassium Chloride Oral Tablet 20 MEQ PO (17:36)
[2021-09-04] MEDS: Ensure Surgery 237 ML LIQUID PO (17:36)
[2021-09-05] MEDS: Cefazolin 1 GM/50 ML BAG IV (02:42)
[2021-09-05 02:46] VITALS: PULSE 56; RESP 16; O2SAT 95
[2021-09-05 04:20] VITALS: BP 105/65; PULSE 60; RESP 18; TEMP 36.4; O2SAT 98
[2021-09-05 04:25] VITALS: BMI 31.0
[2021-09-05] MEDS: Ketorolac 15 MG/ML Vial IV ×2 (04:34→11:55)
[2021-09-05] MEDS: Acetaminophen 500 MG Tablet 1000 MG PO ×2 (05:23→14:14)
[2021-09-05 06:27] LABS: Hemoglobin 10.8 g/dL (12.0-15.0); Mean Corp Hgb Conc 31.8 g/dL (32-36); Mean Corpuscular Volume 88.1 fL (81-99); Mean Platelet Vol. 11.6 fl (6.2-12.0); Platelet Count 254 K/mm3 (150-450); RBC Distribution Width CV 13.6 % (11.6-14.6); RBC Distribution Width SD 43.9 fl (35.1-43.9); Red Blood Count 3.86 M/mm3 (4.2-5.4); White Blood Count 13.2 K/mm3 (4.4-11.0)
[2021-09-05 06:56] LABS: Anion Gap 7 (5-15); BUN 18 mg/dL (7-18); BUN/Creat Ratio 23.3 RATIO (10-20); Calcium,Total 8.7 mg/dL (8.5-10.1); Chloride 106 mmol/L (98-107); Creatinine, Serum 0.77 mg/dL (0.55-1.02); EST Glomerular Filtration Rate 79 mL/min (>60); Est Glom Filt Rate - Afr Amer 96 mL/min (>60); Estimated Creatinine Clearance 47.14 ml/min; Glucose 158 mg/dL (74-106); Potassium 3.9 mmol/L (3.5-5.1); Sodium Level 141 mmol/L (136-145)
[2021-09-05] MEDS: Potassium Chloride Oral Tablet 20 MEQ PO (08:12)
[2021-09-05] MEDS: Aspirin E.C. 81 MG Tablet PO (08:12)
[2021-09-05] MEDS: Ensure Surgery 237 ML LIQUID PO (08:12)
[2021-09-05 09:00] VITALS: BP 123/58; BP 126/68; BP 128/61; PULSE 58; PULSE 59; PULSE 69
[2021-09-05] MEDS: APIXABAN 5 MG TABLET PO (09:18)
[2021-09-05] MEDS: Furosemide 40 MG Tablet PO (09:18)
[2021-09-05] MEDS: Pantoprazole Sodium 40 MG Tablet PO (09:19)
[2021-09-05] MEDS: Senna/Docusate Sodium 1 Tablet 2 TABLET PO (09:19)
[2021-09-05] MEDS: Famotidine 20 MG Tablet PO (09:19)
[2021-09-05 09:36] VITALS: BMI 31.0
--- NOTE | 2021-09-05 10:30 | CASEMGMT ---
EDENILSON CORDOVA Face to Face with patient for initial transition planning/care coordination assessment. RN CM introduced self and role at [facility]. Patient sitting in chair, alert and oriented. Patient willing to participate in assessment and is able to answer all questions appropriately. Care providers, pharmacy, and demographics verified. Patient wishes to discharge home and is setup with outpatient therapy at [facility]. Patient states she has no further needs or concerns at this time. CM to follow for discharge planning needs that may arise. PCP: Roberto Specialists: ramona Marin; Noé, oracle financial application developer; Abrahan, printer helper Preferred Pharmacy: [facility] Insurance: [employer] [facility] Prescription Benefit: yes Living Will/HPOA: yes, daughter Velma Anne LNOK: daughter Living Arrangements: Patient lives with daughter in a 2 story home with bed and bath on first floor. Patient states she was independent at home prior to surgery Transportation: daughter DME/HHC: Patient states she has shower chair, raised toilet, cane, walker, cpap through [employer] at home. Patient has had HHC in the past. Patient is scheduled for outpatient therpay at [facility] on Thursday. Disposition Plan: Patient to discharge home with family support, outpatient therapy, and follow-up plans in place. Liz YOST, RN, CM
--- NOTE | 2021-09-05 10:35 | CASEMGMT ---
EDENILSON CORDOVA in room to complete CHO form with patient. RN ART explained CHO form to patient, patient voiced understanding. Patient signed CHO form and filed in chart. Patient provided with copy of signed CHO form. Patient had no further questions or concerns at this time.
--- NOTE | 2021-09-05 10:38 | PCM.PN.ORT ---
Subjective Subjective The patient was sitting in bedside chair upon examination. Patient denies any chest pain, shortness of breath, dizziness, lightheadedness, nausea or vomiting, or calf pain. Pain is controlled on medications. No adverse overnight events. Patient already participated in physical therapy and did very well. Her pain is very well controlled. When she was up with therapy she had no episodes of syncope, denies any feelings of dizziness or lightheadedness. Yesterday she did have some hypotension. Medicine is holding her amlodipine for 2 days postoperatively. Overall she feels she is doing very well at this time. Objective Data Objective Data Vital Signs: Vital Signs Temp Pulse Resp BP Pulse Ox 97.5 F L 58 L 18 123/58 H 98 09/05/21 04:20 09/05/21 09:00 09/05/21 04:20 09/05/21 09:00 09/05/21 04:20 Oxygen Flow Rate (L/min) 2 Oxygen Delivery Method Nasal Cannula Weight: 81.919 kg Body Mass Index (BMI) 30.9 Intake & Output: Intake and Output for Last 24 Hours 09/03/21 09/04/21 09/05/21 23:59 23:59 23:59 Intake Total 4557.83 / 4557.83 50 / 50 Output Total 300 / 300 Balance 4557.83 / 4557.83 -250 / -250 Lab / Micro Data Result Diagrams: 09/05/21 05:15 09/05/21 05:15 Labs: Laboratory Results - last 24 hr 09/05/21 05:15: WBC 13.2 H, RBC 3.86 L, Hgb 10.8 L, Hct 34.0 L, MCV 88.1, MCH 28.0, MCHC 31.8 L, RDW Std Deviation 43.9, RDW Coeff of Matthew 13.6, Plt Count 254, MPV 11.6 09/05/21 05:15: Sodium 141, Potassium 3.9, Chloride 106, Carbon Dioxide 28.0, Anion Gap 7, BUN 18, Creatinine 0.77, Estim Creat Clear Calc 47.14, Est GFR (MDRD) Af Amer 96, Est GFR (MDRD) Non-Af 79, BUN/Creatinine Ratio 23.3 H, Glucose 158 H, Calcium 8.7 Micro: Microbiology 08/21/21 10:01 Nasal Secretion Nasal Screen MRSA/MSSA - Final Radiography Diagnostic Testing: Radiology Impression Knee X-Ray 09/04/21 12:15 IMPRESSION: Status post recent total knee arthroplasty. Electronically Signed: Schuyler Rich MD at 12:36 EDT , Physical Exam Narrative Vital signs stable and afebrile. ROMELIA hose are in place bilaterally. The SCDs have not been placed back on her legs as she just finished therapy. Patient is able to plantarflex and dorsiflex actively. Sensation is intact to light touch to saphenous, sural, superficial and deep peroneal, and tibial distribution. Dressing is clean dry and intact. There is trace drainage at the distal pin site. Negative Homans bilaterally, negative signs and symptoms of DVT. Const alert, oriented x3 and no apparent distress Assessment & Plan Assessment/Plan (1) Status post total left knee replacement: PLAN: 1. S/P left total knee arthroplasty POD #1 2. Continue Pain Medications: Tylenol and oxycodone 3. DVT Prophylaxis: Patient has resumed her Eliquis that she takes on a normal basis prescribed by outside provider due to previous history of blood clots. 4. PT/OT: Weightbearing as tolerated with walker 5. H & H: 10.8/34.0, asymptomatic. Postoperative anemia secondary to acute blood loss from surgery without any intra operative complications. 6. Reactive leukocytosis: Currently 13.2, afebrile. Patient did receive Decadron intraoperatively 7. Encouraged Incentive Spirometry 8. Continue postoperative medical management per medicine: Case was discussed with medicine and at this time she is holding patient's amlodipine for 2 days postoperatively. They are also going to do orthostatic blood pressure readings. As long as patient is stable she is okay for possible discharge home this afternoon. We will continue to monitor her blood pressure. Currently when I saw the patient she was asymptomatic. Had no problems with physical therapy. 9. Disposition: Plan will be for possible discharge home today as long as pain is well controlled and patient is cleared by medicine. Orthopedically patient is doing well. Patient's blood pressure medications have been adjusted. She will follow-up per postop instructions. Patient would like her medications E scribed to [facility] [place] [facility]. Patient will contact our office upon discharge with any concerns or questions. She does have outpatient physical therapy established in [place] on September 11, 2021. Plan will be for possible discharge home this afternoon as long as she remains stable. Recommend she follow-up with her primary care physician within 1 week. I have reviewed the [place] Automated Rx Reporting System (OARRS) report for this patient for refill pattern and other prescriber involvement as part of the appropriate surveillance for the provision of acute and chronic controlled medications. The report was requested and reviewed on the date of this entry and was considered in the prescribing process. This dictation was created using voice recognition software. Phonetic and/or grammatical errors may exist.
--- NOTE | 2021-09-05 10:44 | DCINST_ITS ---
Discharge Instructions Diet Discharge Diet: No restrictions Activity Discharge Activity: May Not Drive (May not drive until you can walk 100 feet without the use of cane or walker and stop all narcotics) May shower in (days): 1 (Please turn dressing away from water. Okay to get wet as long as dressing is intact to skin.) Ice area for (Minutes): 20 (Every 1-2 hours while awake[address] place barrier between the skin and ice pack.) Weight Bearing Status: Weight bearing as tolerated (With walker) Keep extremity elevated above heart level: Operative Extremity Dressing / Incision Call your doctor if your incision/area has: Continuous Slow Oozing, Sudden Increased Bleeding, Increased Pain/ Swelling, Increased Redness and Foul S melling Discharge Call your doctor if you observe: Fever of 101 or Higher, Coldness, Increased Pain, Numbness or Tingling, Change in Color, Shortness of breath, Chest pain, Calf discomfort and Uncontrolled pain Remove Dressing in: 4 days (Okay to remove dressing on September 09, 2021) Additional Dressing/Incision Instructions:: Follow [facility] Post-op Instructions. Once postoperative dressing has been removed only use gentle soap and water over the incision. Do not use any ointments, Neosporin, salves, alcohol pads over the incision for 6 weeks postoperatively. Do not submerge underwater for 6 weeks postoperatively. Continue with ROMELIA hose/elastic stockings for 2 weeks postoperatively. May remove at nighttime but needs to be placed back on the leg during the day. Do NOT use alcohol with narcotic pain medication. Do NOT make important decisions while taking narcotic medication. If you have problems with taking your medication (rash, itching, nausea, etc.) call the office at once. Recommend follow-up with primary care physician for blood pressure check. Patient is to check her blood pressure twice daily until follow-up. She states she does have the ability to check her blood pressure at home. Follow Up Care Test Results: Test results from this visit will be discussed in further detail at your follow- up appointment, if applicable. Discharge Plan Admission Admit Date/Time: 09/04/21 11:26 Attending Provider: Fredy Marin Primary Care Provider: Madeleine Mejia Consulting Providers: Yunior Moralez ; Amina Malcolm Instructions Additional Instructions / Restrictions: Hold your amlodipine for 2 days; this may be resumed if systolic BPs are better>120 Measure your BP daily Discharge Orders/Prescriptions Prescriptions: New acetaminophen 500 mg Tablet 1,000 mg PO Q8 Qty: 100 0RF Rx Instructions: Do not take more than 3000 mg Tylenol in a 24-hour period. oxycodone 5 mg Tablet 5 - 10 mg PO Q4H PRN PRN (Reason: Pain Score 4-10) 5 Days Qty: 60 0RF sennosides-docusate sodium [Stool Softener-Stimulant Laxat] 8.6-50 mg Tablet 2 tab PO BID Qty: 20 0RF Rx Instructions: Take until first bowel movement, then as needed Continued metoprolol succinate 50 mg tablet extended release 24 hr 50 mg PO DAILY omeprazole 40 MG capsule,delayed release(DR/EC) 40 mg PO DAILY apixaban 5 MG tablet 5 mg PO BID Qty: 74 0RF Rx Instructions: 10 mg PO BID x 14 doses, then 5 mg po BID. potassium chloride 10 mEq capsule, extended release 20 meq PO BID Qty: 120 0RF triamterene-hydrochlorothiazid 37.5-25 mg capsule 1 cap PO DAILY Label Comments: TAKE 1 CAPSULE BY MOUTH EVERY DAY furosemide [Lasix] 20 mg tablet 40 mg PO DAILY aspirin 81 mg tablet,delayed release (DR/EC) 81 mg PO DAILY Qty: 90 3RF No Action amlodipine 10 mg tablet 10 mg PO DAILY Referrals / Follow Up: Madeleine Mejia DO [Primary Care Provider] - (Follow up in 1 week) Epi Roberson PA-C [[facility]] - 09/20/21 9:45 am Physical,Therapy [Other] - 09/11/21 9:30 am Disposition Disposition (needs filled in before D/C Order can be placed): Home, Self Care
[2021-09-05 10:45] VITALS: BP 123/58; PULSE 60
[2021-09-05] MEDS: Metoprolol(XL)Succ 50 MG Tablet PO (10:45)
[2021-09-05] MEDS: Triamterene 37.5MG/Hctz 25MG Capsule 1 CAP PO (10:46)
--- NOTE | 2021-09-05 10:50 | PCM.PN.HOSP ---
Subjective Subjective Follow-up for postop medical management: Patient was seen and examined. She denied any dizziness today. She complains of pain in the left knee. Her blood pressures have been relatively low. Her amlodipine was held. Denies any fever or chills. Objective Data Objective Data Vital Signs: Vital Signs Temp Pulse Resp BP Pulse Ox 97.5 F L 60 18 123/58 H 98 09/05/21 04:20 09/05/21 10:45 09/05/21 04:20 09/05/21 10:45 09/05/21 04:20 Oxygen Flow Rate (L/min) 2 Oxygen Delivery Method Nasal Cannula Weight: 81.919 kg Body Mass Index (BMI) 30.9 Intake & Output: Intake and Output for Last 24 Hours 09/03/21 09/04/21 09/05/21 23:59 23:59 23:59 Intake Total 4557.83 / 4557.83 50 / 50 Output Total 300 / 300 Balance 4557.83 / 4557.83 -250 / -250 Lab / Micro Data Result Diagrams: 09/05/21 05:15 09/05/21 05:15 Labs: Laboratory Results - last 24 hr 09/05/21 05:15: WBC 13.2 H, RBC 3.86 L, Hgb 10.8 L, Hct 34.0 L, MCV 88.1, MCH 28.0, MCHC 31.8 L, RDW Std Deviation 43.9, RDW Coeff of Matthew 13.6, Plt Count 254, MPV 11.6 09/05/21 05:15: Sodium 141, Potassium 3.9, Chloride 106, Carbon Dioxide 28.0, Anion Gap 7, BUN 18, Creatinine 0.77, Estim Creat Clear Calc 47.14, Est GFR (MDRD) Af Amer 96, Est GFR (MDRD) Non-Af 79, BUN/Creatinine Ratio 23.3 H, Glucose 158 H, Calcium 8.7 Micro: Microbiology 08/21/21 10:01 Nasal Secretion Nasal Screen MRSA/MSSA - Final Radiography Diagnostic Testing: Radiology Impression Knee X-Ray 09/04/21 12:15 IMPRESSION: Status post recent total knee arthroplasty. Electronically Signed: Schuyler Rich MD at 12:36 EDT , Physical Exam Narrative Physical exam: General: Alert, Oriented x3, appears comfortable HEENT: Atraumatic Oral: Moist Mucosa Neck: Supple Lungs: Clear to auscultation Cardiovascular: HS I+II, regular, no murmurs Abdomen: Bowel Sounds Present, Soft, Non Tender Extremities: No edema, cooling mat over the left knee Skin: No rashes, No breakdown Neurological: Grossly intact Psych/Mental Status: Appropriate Assessment & Plan Assessment/Plan (1) Status post revision of total knee replacement: PLAN: Plan 1.POD #1, status post left knee minimally invasive robotic assisted total knee replacement Pain is fairly controlled, continue on Toradol, oxycodone as needed Follow-up on orthopedics recommendations PT/OT to evaluate and treat 2. Hypertension, relatively hypotensive Home amlodipine held Continue metoprolol, triamterene-hydrochlorothiazide 3. Thoracic outlet syndrome status post stent with resultant right upper extremity lymphedema Continue on Plavix, aspirin 4. DERICK on CPAP 6. DVT PPx - apixaban Charges/Coding Visit Charges Inpatient E&M: 77617 Subs Hosp L2
[2021-09-05] MEDS: 0.9% Saline Lock 10 ML Syringe IV (11:55)
[2021-09-05 12:39] VITALS: BP 124/54; PULSE 57; RESP 16; O2SAT 95
--- NOTE | 2021-09-05 13:01 | CASEMGMT ---
Addendum entered by Radha Goins 09/05/21 14:05: No return call from Dr Mejia's office yet. Pt discharging home. EDENILSON CORDOVA placed call to Dr Mejia's office again and spoke w/nurse Madeleine. Appt scheduled for 09/12 @ 11:20 AM for BP/hospital f/u. Pt states this day/time is okay. Appt added to Discharge plan, re-printed, and provided to EDENILSON Salvador to give to pt. Original Note: EDENILSON CORDOVA NOTE: STEFANIE Chowdary, requested confirmation of PT appt next week in [place] and also requested appt be scheduled w/pt's PCP in one week for BP f/u. EDENILSON CORDOVA to room. Introduced self and role. Pt states she is scheduled @ [facility] for therapy on Saturday 09/09 @ 9:30 AM. EDENILSON CORDOVA placed call to [facility] in [place] @ [phone] and this date/time was confirmed. Discharge plan updated by JADON Montero. Call placed to PCP/Dr Mejia office to schedule an appt. No answer. VM left. Awaiting return call to schedule appt. Kayden YOST RN, CM
[2021-09-05 13:36] VITALS: BMI 31.0
[2021-09-05 13:49] VITALS: BP 124/54; PULSE 57; RESP 18; TEMP 36.7; O2SAT 95
== END 2021-09-05 14:25 | disposition home or self-care (01) ==
LOC: SDC 11:27 → MS3 11:27
PROVIDERS: Anesthesiology; Admitting Provider Specialist; PCP Family Medicine; Referring Provider Specialist; Visit Provider Specialist
PROC: 0SRD0JZ Replacement of Left Knee Joint with Synthetic Substitute, Open Approach (ICD-10-PCS; CPT 27447; principal; 2021-09-04 09:45)
DX: M17.12 Unilateral primary osteoarthritis, left knee (principal); I73.9 Peripheral vascular disease, unspecified; Z79.82 Long term (current) use of aspirin; G54.0 Brachial plexus disorders; K21.9 Gastro-esophageal reflux disease without esophagitis; I10 Essential (primary) hypertension; Z79.01 Long term (current) use of anticoagulants; G47.33 Obstructive sleep apnea (adult) (pediatric); Z86.718 Personal history of other venous thrombosis and embolism; Z79.899 Other long term (current) drug therapy; E78.5 Hyperlipidemia, unspecified
CPT/HCPCS: 27447; S2900; 01402; 64447; 36415; 71046; 73560; 80048; 82040; 82962; 83036; 83735; 85025; 85027; 87077; 87081; 88305; 88311; 93005; 96361; 96365; 96366; 96375; 96376; 97110; 97116; 97162; 97166; 97530; 97535; 99218; 99251; C1776; J7120; A4216; G0378; G0463; J3475

== ENCOUNTER → 2021-10-07 | Outpatient (CLI) | payer MEDICARE, MEDICAID, SELFPAY ==
--- NOTE | 2021-10-07 09:55 | VDUE_ITS ---
Reason For Study: thoracic outlet syndrome Right Proximal Right jugular vein is spontaneous, widely patent, phasic, with no intraluminal echogenicity noted. Right subclavian vein is spontaneous, widely patent, phasic, with no intraluminal echogenicity noted. Right Lower Arm Right radial vein is compressible. Right ulnar vein is compressible. Right Arm Right axillary vein is spontaneous, patent, phasic, competent, compressible and demonstrates augmentation. Right brachial vein is compressible. Right cephalic vein is compressible. Right basilic vein is compressible. VL/Venous Duplex US, Unilateral Interpretation Summary Right upper extremity with no evidence of DVT or SVT noted. Ordering Physician: Archie Suresh Performed By: Michelet Mendez, RVT ?
== END | disposition home or self-care (01) ==
LOC: CVS 09:53
PROVIDERS: PCP Family Medicine; Visit Provider Surgery Vascular Surgery
DX: G54.0 Brachial plexus disorders (principal); R60.0 Localized edema; M79.609 Pain in unspecified limb
CPT/HCPCS: 93971

== ENCOUNTER → 2022-10-08 | Outpatient (CLI) | payer MEDICARE, MEDICAID, SELFPAY ==
--- NOTE | 2022-10-08 08:39 | VDUE_ITS ---
Reason For Study: Thoracic outlet syndrome Right Proximal Right jugular vein is spontaneous, widely patent, phasic, with no intraluminal echogenicity noted. Right subclavian vein is spontaneous, widely patent, phasic, with no intraluminal echogenicity noted. Stent noted in the subclavian vein. Right Lower Arm Right radial vein is compressible. Right ulnar vein is compressible. Right Arm Right axillary vein is spontaneous, patent, phasic, competent, compressible and demonstrates augmentation. Right brachial vein is compressible. Right cephalic vein is compressible. Right basilic vein is compressible. VL/Venous Duplex US, Unilateral Interpretation Summary Right subclavian vein stent patent and no dvt. Ordering Physician: Archie Suresh Referring Physician: Madeleine Mejia Performed By: Liz Garcia RVT ???
== END | disposition home or self-care (01) ==
LOC: CVS 08:36
PROVIDERS: PCP Family Medicine; Referring Provider Surgery Vascular Surgery; Visit Provider Surgery Vascular Surgery
DX: R22.31 Localized swelling, mass and lump, right upper limb (principal); Z48.812 Encounter for surgical aftercare following surgery on the circulatory system; G54.0 Brachial plexus disorders; M79.609 Pain in unspecified limb; I10 Essential (primary) hypertension
CPT/HCPCS: 93971

== ENCOUNTER → 2023-02-11 | Outpatient (CLI) | payer MEDICARE, MEDICAID, SELFPAY ==
[2023-02-11 13:18] LABS: Uric Acid 6.8 mg/dL (2.6-6.0)
== END | disposition home or self-care (01) ==
LOC: BFHLAB 10:57
PROVIDERS: PCP Family Medicine; Visit Provider Family Medicine
DX: Z00.00 Encounter for general adult medical examination without abnormal findings (principal)
CPT/HCPCS: 36415; 84550

== ENCOUNTER → 2023-02-12 | Outpatient (CLI) | payer MEDICARE, MEDICAID, SELFPAY ==
--- NOTE | 2023-02-12 07:04 | CT_ITS ---
CT RIGHT LOWER EXTREMITY WITH 3-D IMAGING CLINICAL INDICATION: VALGUS DEFORMITY TECHNIQUE: Axial CT images of the right lower extremity (including right hip, right knee, and right ankle) was performed without IV contrast material. Coronal and sagittal reformats were provided. RADIATION DOSAGE (If Supplied By Facility): CTDIvol = ( 19.15 ) mGy, DLP = ( 1152.33 ) mGycm COMPARISON: FINDINGS: Bones: There is a right hip arthroplasty in place, with no periprosthetic fracture. There is tricompartment degenerative arthrosis of the right knee with marginal osteophyte formation, most pronounced in the lateral femorotibial compartment. There is a 1.2 cm ossified loose body in the lateral retrocondylar recess (sagittal reformat series 605 image 34). Unremarkable right ankle. Osseous structures are normal without evidence of fracture or dislocation. No lytic or blastic osseous masses. Soft Tissues: There is a right hip joint effusion. There is a small right knee joint effusion. The deep soft tissue structures are unremarkable. The superficial soft tissues are unremarkable without evidence of edema, hematoma, or foreign body. CT/Extremity Lower without Contra IMPRESSION: Tricompartment degenerative arthrosis, most pronounced in the lateral femorotibial compartment. 1.2 cm ossified loose body in the lateral retrocondylar recess. Right hip arthroplasty, with no periprosthetic fracture. Right hip joint effusion. Electronically Signed: Reggie Centeno MD at 9:55 EST ,
== END | disposition home or self-care (01) ==
LOC: CT 07:00
PROVIDERS: PCP Family Medicine; Referring Provider Specialist; Visit Provider Specialist
DX: M21.061 Valgus deformity, not elsewhere classified, right knee (principal)
CPT/HCPCS: 73700

== ENCOUNTER 2023-02-18 10:19 | Observation (INO) | payer MEDICARE, MEDICAID, SELFPAY ==
--- NOTE | 2023-01-28 08:30 | EKG12_ITS ---
Test Reason : PRE OP Blood Pressure : / mmHG Vent. Rate : 059 BPM Atrial Rate : 059 BPM P-R Int : 174 ms QRS Dur : 086 ms QT Int : 440 ms P-R-T Axes : 022 036 069 degrees QTc Int : 435 ms Sinus bradycardia Low voltage QRS Borderline ECG Confirmed by KIRSTIN VANESSA, HEMA ([id number]), editorial project manager NATALIA YANCEY ([id number]) on 02/04/2023 11:52:24 AM Referred By: Fredy Marin Confirmed By:HEMA FULTON MD
[2023-01-28 09:11] LABS: Absolute Lymphocyte Count 1.31 X10^3/uL (0.83-4.51); Basophil# 0.06 X10^3/uL; Eosinophils% 3.2 % (0-5); Hematocrit 39.7 % (37-47); Hemoglobin 12.3 g/dL (12.0-15.0); Lymphocyte # 1.31 X10^3/ul (0.83-4.51); Lymphocyte % 21.3 % (19-41); Mean Corpuscular Hgb 27.4 pg (27.0-32.0); Mean Corpuscular Volume 88.4 fL (81-99); Mean Platelet Vol. 10.7 fl (6.2-12.0); Monocyte# 0.52 X10^3/uL; Monocyte% 8.4 % (0-10); NRBC Flagged by Analyzer 0 % (0-5); Neutrophil # 4.04 X10^3/uL (2.7-7.7); Neutrophil % 65.6 % (47-70); Platelet Count 325 K/mm3 (150-450); RBC Distribution Width CV 13.3 % (11.6-14.6); RBC Distribution Width SD 43.7 fl (35.1-43.9); Red Blood Count 4.49 M/mm3 (4.2-5.4); White Blood Count 6.2 K/mm3 (4.4-11.0)
[2023-01-28 09:46] LABS: Magnesium 2.2 mg/dL (1.6-2.6)
[2023-01-28 09:48] LABS: Albumin, Serum 3.5 g/dL (3.2-5.0); Anion Gap 7 (5-15); BUN 23 mg/dL (7-18); BUN/Creat Ratio 27.4 RATIO (10-20); Calcium,Total 8.7 mg/dL (8.5-10.1); Chloride 106 mmol/L (98-107); Creatinine, Serum 0.84 mg/dL (0.55-1.02); EST Glomerular Filtration Rate 72 mL/min (>60); Est Glom Filt Rate - Afr Amer 87 mL/min (>60); Glucose 123 mg/dL (74-106); Potassium 3.9 mmol/L (3.5-5.1); Sodium Level 142 mmol/L (136-145)
[2023-01-28 09:52] LABS: Hemoglobin A1c 6.4 % (3.8-5.6)
--- NOTE | 2023-02-09 13:05 | PCM.HP.BLA ---
History and Physical History and Physical? Patient Name: Lisa Hoffmann : 1955 From:? GARRETT SANTANA PA-C? DATE OF PRE-OPERATIVE EXAM: 02/09/2023 DATE OF SURGERY:? 02/18/2023 SCHEDULED PROCEDURE:? Right total knee arthroplasty HISTORY OF PRESENT ILLNESS: Preoperative history and physical exam was performed on February 09, 2023.? This is a 68-year-old female who is been having ongoing pain for over the past 2-3 years.? Pain is been intermittent and dull.? Pain is increased with going up and down stairs, sitting, and walking.? She complains of pain over the lateral aspect of the knee.? Pain at worst can reach 5/10 with activities.? She does report startup pain.? She has difficulty with activities of daily living including shopping, stairs and long walks.? Patient denies past history of surgery on the right knee.? She has undergone a previous left total knee arthroplasty by Dr. Fredy Marin on September 04, 2022 in which she has no complaints today.? Patient has tried rest, ice, elevation with minimal relief.? She has tried previous injections with minimal relief.? 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 She has tried oral medications including Tylenol without relief.? Patient is unable to take nonsteroidal anti-inflammatories as she takes Eliquis 5 mg for past history of DVT.? Patient currently denies any chest pain, short breath, fevers chills or recent infections.? She has medical history pertinent for gastroesophageal reflux disease, hypertension, previous blood clots, sleep apnea with use of CPAP, peripheral vascular disease, and history of thoracic outlet syndrome.? We are obtaining surgical clearance from the primary care physician Dr. Madeleine Mejia.? We are also reaching out to Dr. Suresh who manages patient's Eliquis for the previous DVTs.? We are asking for perioperative management of the Eliquis.? After failing conservative measures and discussing all treatment options with Dr. Fredy Marin, the patient does wish to proceed with a right total knee arthroplasty. REVIEW OF SYSTEMS: Review Of Systems: Constitutional: Denies change in appetite, fever and weight change. Cardiovasular: Denies chest pain, heart murmur and irregular heartbeat. Respiratory: Denies cough, pneumonia, shortness of breath, tuberculosis and wheezing. Gastrointestinal: Denies constipation, diarrhea, heartburn, nausea, rectal itching, bloody stools and vomiting. Genitourinary: Reports incontinence. Musculoskeletal: Reports leg swelling, pain, trouble walking and weakness. Skin: Denies Raynaud's, history of shingles and tattoo. Neurological: Denies ambulatory dysfunction, dizziness, numbness/tingling and tremor. Psychiatric: Denies anxiety, insomnia and stress. Hematologic/Lymphatic: Reports bleeding/bruising tendency and past transfusion, but denies anemia. Reviewed and updated. PAST MEDICAL HISTORY: Advance Care Plan: Other Directive, LIVING WILL Effective Date: 05/16/2021 Other Directive, POA Effective Date: 05/16/2021 Past Medical History: Medical Problems: Acid Reflux, Arthritis, High Blood Pressure, History Of Blood Clots/ DVT, Sleep Apnea, Vascular Disease/ Peripheral, Thoracic Outlet Syndrome Accidents: None Surgical Hx: Section - 1976, 1978, 1981 [facility] Gallbladder - 1982 Hysterectomy - 1999 Hip Replacement LT - 2015 DR MADELAINE SULTANA Hip Replacement RT - 2015 DR MADELAINE SULTANA Stent - FOR THORACIC OUTLET SYNDROME Left Total Knee Replacement - (09/04/2021) SAW @ [facility] Anesthesia Complications: Anesthesia Complications - WAKES UP SLOWLY Assistive Devices: Cpap, Glasses Reviewed, no changes. SOCIAL HISTORY: Social History: Marital: .Occupation: [employer].Work Status: Currently Working.Hand Dominance: Right-handed. Personal Habits:? Cigarette Use: Never Smoked Cigarettes.Smokeless Tobacco: Never Used Smokeless Tobacco.E-Cigarette Use: Never used.Alcohol: Occasionally.Drug Use: Denies Use.Enjoy Exercising: Never Exercises. Reviewed and updated. VITALS: Ht: 64 Wt: 190lb Wt k.184 BMI: 32.6 BP: 118/62 Pulse: 65 Resp: 14 T: 97.1 T: 36.2C Pain Level: 2 O2SatR: 96 ALLERGIES: No Known Drug Allergy No Known Substance Allergies? MEDICATIONS: Acetaminophen 500 mg do not take more than 3000 mg tylenol in a 24-hour period., Potassium Chloride ER 10 Meq twice a day, Aspirin 81 mg daily, Metoprolol Succinate ER 50 mg 1 by mouth every day, Furosemide 40 mg 1 by mouth every day, Triamterene/Hydrochlorothiazide 37.5-25 mg by mouth daily, Omeprazole 40 mg 1 by mouth every day, Amlodipine Besylate 10 mg 1 by mouth every day, Eliquis 5 mg 1 by mouth twice a day PRE-OP EXAM:? General appearance:NORMAL? ? ? Other: Eyes: Conjunctivae and lids: NORMAL? Pupils: ERR Ears, Nose, Mouth, and Throat: NORMAL? Other: Inspection of lips, teeth and gums: NORMAL? ?Other: Neck: Examination of neck: no masses noted. Respiratory: Assessment of respiratory effort: NORMAL? ?Other: ?Auscultation of lungs: clear to auscultation no wheezes, rhonchi or rales. Cardiovascular:? Auscultation of heart: regular rate and rhythm, positive systolic murmur PHYSICAL EXAMINATION: Patient walks with an antalgic gait.? Right knee has large effusion.? There is tenderness to palpation over the lateral joint line.? Minimal tenderness on the medial joint line.? She has valgus alignment which is correctable on exam.? Range of motion: 0 extension to 114 flexion.? Stable to anterior/posterior drawer exam with firm endpoint.? Sensation intact to light touch to bilateral lower extremities.?? IMAGING STUDIES: Previous x-rays of the right knee reveal valgus alignment with lateral joint space narrowing, subchondral sclerosis, osteophyte formation consistent with severe stage IV bone on bone osteoarthritis. IMPRESSION: 1.? Severe right knee osteoarthritis with valgus alignment 2.? Gastroesophageal reflux disease 3.? Hypertension 4.? History of previous DVTs: Currently on Eliquis 5.? Sleep apnea with use of CPAP 6.? Peripheral vascular disease 7.? Thoracic outlet syndrome with previous stent 8.? Elevated A1c without diagnosis of type 2 diabetes mellitus: Currently 6.4 9.? Elevated kidney function without official diagnosis of kidney disease 10.? Obesity with BMI 32.6 PLAN: Dr. Fredy Marin did discuss and review with the patient all treatment options including surgical versus nonsurgical options.? Patient does wish to proceed with the above-stated procedure.? Potential risks, benefits, and complications of the procedure were discussed in detail including but not limited to , infection, nerve and blood vessel damage, persistent pain, numbness, tingling, paresthesias, blood clot, pulmonary embolism, and requirement for possible further surgery.? The patient expressed full understanding and has no further questions for the doctor.? Patient does agree to proceed with the above-stated procedure and has signed the surgery consent form. POST-OP MEDICATION PLAN: Pain Medications: Discussed with the patient postoperative medications.? Due to her anticoagulation we will not be L to proceed with nonsteroidal anti-inflammatories.? We will utilize extra strength Tylenol and oxycodone. DVT Prophylaxis: Patient will resume her Eliquis 5 mg twice daily postoperatively.? We are requesting perioperative management per Dr. Suresh in which we will need to stop the Eliquis prior to surgery. This dictation was created using voice recognition software. Phonetic and/or grammatical errors may exist. ___? I have re-examined the patient.? There are no clinical changes since date of exam. ___? See progress notes for changes. ___? Dictated on admission Date: ? ? ?Time: Signature:
[2023-02-18] VITALS (16 sets, daily range): BP systolic 107–153; BP diastolic 53–90; PULSE 53–74; RESP 16–18; TEMP 36.1–36.4; O2SAT 88–99; BMI 31.8
[2023-02-18 08:28] LABS: Bedside Glucose 242 mg/dL (74-106)
[2023-02-18] MEDS: Lactated Ringers 1,000 ML 999 ML IV ×2 (08:30→10:30)
[2023-02-18] MEDS: Magnesium 1 GM over 15 mins IV (08:31)
[2023-02-18] MEDS: Celecoxib 200 MG Capsule 400 MG PO (08:49)
[2023-02-18] MEDS: Gabapentin 600 MG Tablet PO (08:49)
[2023-02-18] MEDS: Acetaminophen 500 MG Tablet 1000 MG PO ×2 (08:50→21:43)
[2023-02-18] MEDS: Insulin Lispro 100 UNIT/ML INSULN.PEN SC ×2 (08:56→13:27)
[2023-02-18] MEDS: Lactated Ringers 1,000 ML 75 ML IV (08:57)
--- NOTE | 2023-02-18 10:16 | OP.PCM_ITS ---
Report of Operation Date of Procedure: 02/18/23 Pre-Operative Diagnosis: Right knee primary osteoarthritis Post-Operative Diagnosis: Right knee primary osteoarthritis Surgery/Procedure Performed:: Right minimally invasive robotic total knee replacement Description of Surgical Findings:: Stable knee with good patella tracking Surgeon: Fredy Marin educational resource coordinator: Epi Roberson Type of Anesthesia: Spinal Anesthesiologist: Giovanni Bowman Special Medications: 2 g Ancef, 1 g TXA at incision, 1 g TXA closure, 10 mg Decadron, joint cocktail (5 mg Duramorph, 30 mL of 0.5% Ropivicaine, 1000 units of epinephrine, 30 mg of Toradol) Specimen's removed: Bony cuts Estimated Blood Loss (mL): 350 Fluids Replaced: 2000 ML CRYSTALLOID Description of Procedure: Implants used: 1. Bellwood size 3 triathlon cruciate retaining distal femoral press-fit component 2. Bellwood size 4 press-fit tritanium tibial baseplate 3. Bellwood X3 13 mm CS polyethylene 4. Saul X3 35 mm asymmetric patella Brief history operative indications: 68-year-old f with history of right knee osteoarthritis with radiographic findings with loss of joint space, osteophyte formation and subchondral sclerosis. Failed conservative measures as mentioned in the H&P. Discussion of total knee arthroplasty as well as risk and benefits were discussed the patient including but not limited to blood loss, DVTs, PEs, neurovascular damage, g eneral risk of anesthesia including loss of life, and stiffness or instability were discussed with patient. Patient demonstrated understanding and was able to sign informed consent. Procedure: On the date of procedure patient's right lower extremity was marked in the preoperative area. The patient was then taken back to the operating room where the patient was placed on the table in the supine position. All bony prominences were identified a well-padded. Anesthesia assumed control of the C-spine and airway and remained controlled throughout the remainder of the procedure. A tourniquet was placed on the right upper thigh and the leg was prepped in a sterile fashion. The surgeon then scrubbed at this time .Upon reentering the room right lower extremity was draped in a standard orthopedic fashion. A timeout was then called and everyone agreed upon the side, the site, the procedure to be performed, patient's identity and antibiotics given. Esmarch bandage was used to exsanguinate the extremity and the tourniquet was placed up to 250 mmHg with the knee in flexion. A midline skin incision was made and sharp dissection was taken down through skin subcutaneous tissue and fat. The standard medial parapatellar incision was made and the patella was subluxed laterally. An Appropriate deep MCL release was done and the fat pad was resected. Our attention was then directed to the patella. The patella was everted and a flat resection was made. The knee was then flexed up in 2 femoral pins were placed inside the incision and 2 tibial pins were placed outside the incision in the medial tibia bicortically. Once this was completed the 2 checkpoints in the femur and tibia were placed. Knee was then flexed up and the bony landmarks were registered. Once this was completed knee was taken through range of motion and manually stressed allowing us to a plan for an appropriate tibial cut. The robotic arm was brought into the field sterilely and checkpoint and saw were registered. Based on the patient's deformity the tibial cut was made neutral to the tibial axis. At this time the tensioner was then placed in the joint and ligament tension was checked at 90 degrees and full extension. Based on the patient's ligamentous tension appropriate adjustments were made to the operative plan and ligament releases were done. Once we were happy with our operative plan with balanced flexion and extension gaps our attention was directed to the femur. The robot was brought into the field sterilely and registered. Posterior condylar cuts, anterior chamfer cuts and anterior cuts were appropriately made for a size 3 femur. When these were completed the saws were switched out in the distal femoral and posterior chamfer cuts were made. Protecting the soft tissue throughout this time. A size 4 tibial base plate was selected. the knee was flexed to 90 degrees and the soft tissues and posterior osteophytes were removed from the joint. 40 cc of the periarticular injection was injected into the posterior medial corner of the joint. The appropriate trials were then placed on the femur and tibia. A trial polyethylene was trialed to ensure proper balancing and stability of the knee. The appropriate tibial internal rotation was then marked with a bovie. Our attention was then directed to the patella. The lug holes were drilled and the patella trial was placed. Patellar tracking was checked and deemed appropriate. Once we were happy lug holes were drilled for the femur and trial components were removed. the tibia was subluxed and pinned into place and the keel was punched and drilled appropriately. Final components were verified and opened, and cement was mixed in a vacuum. Myndnet Simplex cement was used. The wound was copiously irrigated with normal saline. When the cement was ready the components were impacted into place starting with the tibia, femur and finally cementing the patella. The trial poly component was placed and the knee was placed in full extension. All excess cement was removed in the process. Once the cement had cured the tracking, alignment and balance were verified and a size 13 mm CS polyethylene component was placed. Once the final components were placed a 3-minute dilute Betadine lavage was performed followed by an Irrisept lavage was performed and the wound was copiously irrigated with normal saline solution and the periarticular injection was given. The wound was closed in a layer farr fashion using #1 vicryl interrupted sutures for the arthrotomy, 2-0 interrupted Vicryl suture for the subcuticular layer and sukumar for final skin closure. A sterile compressive dressing was then placed. The patient was then awakened from anesthesia, transferred to the [facility] and transferred to the PACU for recovery. Post op plan DVT ppx: Resume Eliquis on postop day 1, thigh high compression stockings Follow up: in office in 2 weeks for wound check PT: to start POD #0 at hospital, outpatient PT should be arranged. My physician clinical nursing assistant was a vital part of this case. He was important in appropriate retraction during the case, and protection of soft tissues during bony cuts. His intimate knowledge of the case and my steps aided in safe and expedient completion of the procedure as well as appropriate position of the leg during the case. He was also vital in assisting with closure under my direct supervision. Due to the complexity of this case robotic arm was used to assist in the surgery to improve accuracy and clinical outcomes. Complications No intraoperative complications Admit VTE Documentation VTE Present on Admission: No VTE Mechan Device Prophylaxis: SCD's and Thigh High ROMELIA Hose VTE Pharm Prophylaxis ordered?: Yes
--- NOTE | 2023-02-18 10:20 | RAD_ITS ---
STUDY: X-RAY - RIGHT KNEE REASON FOR EXAM: Female, 68 years old. Post op -- AP and Lateral xray of operative knee in PACU TECHNIQUE: 2 view(s) of the knee. COMPARISON: None. FINDINGS: Normal visualized distal femur. Normal visualized proximal tibia and fibula. Normal proximal tibiofibular articulation. Patient status post total knee replacement. There is good alignment. Postoperative soft tissue changes. RAD/Knee 1 or 2 Views IMPRESSION: Status post total knee replacement. There is good alignment. Postoperative soft tissue changes. Electronically Signed: Kimani De Oliveira MD at 13:36 EST ,
[2023-02-18] MEDS: Cefazolin 2 GM in 0.9% Normal Saline (100mL Bag) 100 ML IV (10:24)
[2023-02-18] MEDS: dexAMETHasone 10 MG/ML Vial IV (10:30)
--- NOTE | 2023-02-18 10:30 | KNEE_PTH ---
PATIENT: LEXUS PEOPLES LOC: [facility] U#:[id number] AGE/SX: 68/F ROOM: [facility] RE02/18/[address]: Dr. Fredy Marin MD : 1955 BED: 1 DIS: 02/19/2023 SPEC #: [id number] RECD: 02/18/23 16:53 STATUS: SANNA REElias #: [id number] GOOD: 02/18/23 10:[address]: Fredy Marin DEPT: SURGICAL PATHOLOGY RECD BY: Atiya Lee ENTERED: 02/19/23 08:51 SP TYPE: TOTAL KNEE OTHR DR: DO Dr. Zachary Lomeli, DO Dr. Marcin Cheung MD Tissues: Knee, NOS Procedures: Decalcification bone/plaque Surgery Specimen Level IV HEADER OPERATION: MARTHAS, robotic assisted right total knee arthroplasty PRE-OP DIAGNOSIS: Right knee pain TISSUE SUBMITTED: Right knee bone and tissue MICROSCOPIC DIAGNOSIS Bone and tissue, right knee, total knee replacement/resection: Pieces of bone with degenerative osteoarthritic changes. Fibroadipose tissue, fibroconnective tissue and reactive synovial tissue. GOSAI:arlet 02/25/2023 MICROSCOPIC DESCRIPTION Slides are reviewed. GROSS DESCRIPTION Received is one container designated bone and tissue right knee. The specimen consists of multiple fragments of robles-yellow bone measuring in aggregate 10.0 x 10.0 x 3.5 cm. Also present attached to the piece of bone is a piece of soft tissue measuring 2.0 x 2.0 x 0.5 cm. A number of bony fragments contain articular surfaces consistent with tibial plateau and femoral condyle and displaying prominent osteophyte formation, eburnation and bone erosion. Medical Charge Entry Specialist sections are submitted in two cassettes as follows: 1 - bone after decalcification, 2 - soft tissue, entirely submitted. / GOSIA:arlet 02/19/2023 TC:5 CPT: 35323, 31304
[2023-02-18] MEDS: JPS (Morphine 10mg/ml) OPERA.SITE (12:06)
[2023-02-18] MEDS: TRANEXAMIC ACID 2,000 MG, 0.9% Normal Saline (100mL Bag) 100 ML OPERA.SITE (12:07)
[2023-02-18 13:40] LABS: Bedside Glucose 203 mg/dL (74-106)
[2023-02-18] MEDS: Cefazolin 1 GM/50 ML BAG IV (18:25)
[2023-02-18] MEDS: Senna/Docusate Sodium 1 Tablet 2 TABLET PO (21:42)
[2023-02-18] MEDS: Lactated Ringers 1,000 ML 125 ML IV (21:46)
[2023-02-18 22:10] LABS: Bedside Glucose 321 mg/dL (74-106)
[2023-02-19 00:11] LABS: Bedside Glucose 254 mg/dL (74-106)
[2023-02-19 01:15] VITALS: BP 99/49; PULSE 51; RESP 18; TEMP 36.2; O2SAT 98
[2023-02-19] MEDS: Cefazolin 1 GM/50 ML BAG IV (02:46)
[2023-02-19 05:12] VITALS: BP 100/56; PULSE 59; RESP 16; TEMP 36.3; O2SAT 97
[2023-02-19] MEDS: Acetaminophen 500 MG Tablet 1000 MG PO ×2 (05:26→13:13)
[2023-02-19 06:14] LABS: Bedside Glucose 180 mg/dL (74-106)
[2023-02-19 08:00] LABS: Hematocrit 30.5 % (37-47); Hemoglobin 9.6 g/dL (12.0-15.0); Mean Corp Hgb Conc 31.5 g/dL (32-36); Mean Corpuscular Hgb 28.1 pg (27.0-32.0); Mean Corpuscular Volume 89.2 fL (81-99); Mean Platelet Vol. 11.1 fl (6.2-12.0); Platelet Count 244 K/mm3 (150-450); RBC Distribution Width CV 13.4 % (11.6-14.6); RBC Distribution Width SD 43.6 fl (35.1-43.9); Red Blood Count 3.42 M/mm3 (4.2-5.4); White Blood Count 15.7 K/mm3 (4.4-11.0)
[2023-02-19 08:15] VITALS: BP 104/54; PULSE 55; RESP 18; TEMP 36.4; O2SAT 94
[2023-02-19] MEDS: Furosemide 40 MG Tablet PO (08:24)
[2023-02-19] MEDS: Senna/Docusate Sodium 1 Tablet 2 TABLET PO (08:24)
[2023-02-19] MEDS: Famotidine 20 MG Tablet PO (08:24)
[2023-02-19] MEDS: Potassium Chloride Oral Tablet 10 MEQ 20 MEQ PO (08:24)
[2023-02-19] MEDS: Triamterene 37.5MG/Hctz 25MG Capsule 1 CAP PO (08:24)
[2023-02-19] MEDS: APIXABAN 5 MG TABLET PO (08:25)
[2023-02-19] MEDS: Aspirin E.C. 81 MG Tablet PO (08:25)
[2023-02-19] MEDS: Pantoprazole Sodium 40 MG Tablet PO (08:25)
[2023-02-19] MEDS: amLODIPine 10 MG Tablet PO (08:25)
[2023-02-19 08:43] LABS: Anion Gap 6 (5-15); BUN 16 mg/dL (7-18); BUN/Creat Ratio 21.5 RATIO (10-20); Chloride 106 mmol/L (98-107); Creatinine, Serum 0.74 mg/dL (0.55-1.02); EST Glomerular Filtration Rate 82 mL/min (>60); Est Glom Filt Rate - Afr Amer 99 mL/min (>60); Estimated Creatinine Clearance 45.85 ml/min; Glucose 153 mg/dL (74-106); Potassium 3.6 mmol/L (3.5-5.1); Sodium Level 139 mmol/L (136-145)
--- NOTE | 2023-02-19 09:19 | PCM.PN.ORT ---
Subjective Subjective The patient was sitting in bed upon examination. Patient denies any chest pain, shortness of breath, dizziness, lightheadedness, nausea or vomiting, or calf pain. Pain is controlled on medications. No adverse overnight events. Patient states pain has been controlled so far. She did receive a block postoperatively. She has had some lower blood pressure readings. She denies any chest pain, shortness of breath. Denies any dizziness or lightheadedness. She has been up to the bathroom without complications. Physical therapy has yet to work with her this morning. Patient did have drop in hemoglobin but is currently asymptomatic with any dizziness or lightheadedness. There has been some slight drop in blood pressure. The drop in hemoglobin was very similar to her previous left total knee arthroplasty in August 2021. Objective Data Objective Data Vital Signs: Vital Signs Temp Pulse Resp BP Pulse Ox O2 Del Method O2 Flow Rate 97.6 F L 55 L 18 104/54 L 94 Room Air 2 02/19/23 08:15 02/19/23 08:15 02/19/23 08:15 02/19/23 08:15 02/19/23 08:15 02/19/23 08:15 02/19/23 05:12 Oxygen Flow Rate (L/min) 2 Oxygen Delivery Method Room Air Weight: 84 kg Body Mass Index (BMI) 31.8 Intake & Output: Intake and Output for Last 24 Hours 02/17/23 02/18/23 02/19/23 23:59 23:59 23:59 Intake Total 5312 / 5712 1850 / 1850 Balance 5312 / 5712 1850 / 1850 Lab / Micro Data 02/19/23 07:37 02/19/23 07:37 Labs: Laboratory Results - last 24 hr 02/18/23 13:23: POC Glucose 203 H 02/18/23 21:50: POC Glucose 321 H 02/18/23 23:50: POC Glucose 254 H 02/19/23 05:55: POC Glucose 180 H 02/19/23 07:37: WBC 15.7 H, RBC 3.42 L, Hgb 9.6 L, Hct 30.5 L, MCV 89.2, MCH 28.1, MCHC 31.5 L, RDW Std Deviation 43.6, RDW Coeff of Matthew 13.4, Plt Count 244, MPV 11.1, Sodium 139, Potassium 3.6, Chloride 106, Carbon Dioxide 27.0, Anion Gap 6, BUN 16, Creatinine 0.74, Estim Creat Clear Calc 45.85, Est GFR (MDRD) Af Amer 99, Est GFR (MDRD) Non-Af 82, BUN/Creatinine Ratio 21.5 H, Glucose 153 H, Calcium 8.0 L Micro: Microbiology 01/28/23 08:40 Swab (Method) Nasal Screen MRSA/MSSA - Final Radiography Diagnostic Testing: Radiology Impression Knee X-Ray 02/18/23 10:20 IMPRESSION: Status post total knee replacement. There is good alignment. Postoperative soft tissue changes. Electronically Signed: Kimani De Oliveira MD at 13:36 EST , Physical Exam Narrative Vital signs stable and afebrile. Patient has had some lower blood pressure readings. SCDs and ROMELIA hose are in place bilaterally Patient is able to plantarflex and dorsiflex actively. Sensation is intact to light touch to saphenous, sural, superficial and deep peroneal, and tibial distribution. Proximal pin site dressing and main Mepilex dressing is clean dry and intact. Trace drainage over the distal pin site dressing Negative Homans bilaterally, negative signs and symptoms of DVT. Const alert, oriented x3 and no apparent distress Assessment & Plan Assessment/Plan (1) Status post total right knee replacement: PLAN: 1. S/P right total knee arthroplasty POD #1 2. Continue Pain Medications: Tylenol and oxycodone 3. DVT Prophylaxis: Patient has resumed her home Eliquis 5 mg which she takes for previous history of DVT. This is managed by Dr. Suresh. This will cover her for DVT prophylaxis postoperatively. 4. PT/OT: Weightbearing as tolerated with walker. Her pain has been controlled however we did discuss the block which could be starting to wear off in the near future. 5. H & H: 9.6/30.5, asymptomatic. Drop in hemoglobin most likely secondary to intraoperative blood loss as well as dilutional component with no intraoperative complications. Patient denies any dizziness or lightheadedness but there has been slight drop in blood pressure. She is asymptomatic when up walking. Preoperatively her hemoglobin/hematocrit was 12.3/39.7. There was estimated blood loss 350 mL. Fluids were placed 2000 crystalloid. Patient had a very similar drop from her previous left total knee arthroplasty. We will place her on ferrous sulfate and folic acid. I will have her follow-up with her primary care physician in 2 weeks. Repeat lab work will be obtained. She will get this prior to her follow-up with the primary care physician. 6. Reactive leukocytosis: Currently 15.7, afebrile. Patient did receive Decadron intraoperatively. No clinical signs of underlying infection. 7. Continue postoperative medical management per medicine: Case was discussed with medicine and appreciate recommendations with her blood pressure. Discussed with nursing and she states they held her Lopressor this morning. 8. Encouraged Incentive Spirometry 9. Disposition: Plan will be for possible discharge home this afternoon as long as patient tolerates physical therapy, the pain is well-controlled, and cleared by medicine. Appreciate recommendations with blood pressure. She would like her medications ultimately E scribed to [facility] in [facility]. She will follow-up per postop instructions. She has outpatient physical therapy established. Upon discharge patient will contact her office with any concerns or questions. We discussed postoperative medications and dressing in great detail. All questions were answered. I will have patient follow-up with her primary care physician in 2 weeks with repeat lab work. Will discuss with case management. If patient is medically stable probable discharge home this afternoon with recommendations from medicine. I have reviewed the [place] Automated Rx Reporting System (OARRS) report for this patient for refill pattern and other prescriber involvement as part of the appropriate surveillance for the provision of acute and chronic controlled medications. The report was requested and reviewed on the date of this entry and was considered in the prescribing process. This dictation was created using voice recognition software. Phonetic and/or grammatical errors may exist.
--- NOTE | 2023-02-19 09:32 | PCM.DC ---
Discharge Instructions Diet Discharge Diet: No restrictions Activity Discharge Activity: May Not Drive (No driving for 6 weeks postoperatively. Must also be off all narcotics and able to walk 100 feet with the use of cane) May shower in (days): 1 (Please turn dressing away from water. Okay to get wet as long as dressing is intact to skin.) Ice area for (Minutes): 20 (Every 1-2 hours while awake. Please place barrier between the skin and ice pack.) Weight Bearing Status: Weight bearing as tolerated Keep extremity elevated above heart level: Operative Extremity Dressing / Incision Call your doctor if your incision/area has: Continuous Slow Oozing, Sudden Increased Bleeding, Increased Pain/ Swelling, Increased Redness and Foul Smelling Discharge Call your doctor if you observe: Fever of 101 or Higher, Coldness, Increased Pain, Numbness or Tingling, Change in Color, Shortness of breath, Chest pain, Calf discomfort and Uncontrolled pain Remove Dressing in: 4 days (Okay to remove dressings on February 23, 2023) Additional Dressing/Incision Instructions:: Follow [facility] Post-op Instructions. Once postoperative dressing has been removed only use gentle soap and water over the incision. Do not use any ointments, Neosporin, salves, alcohol pads over the incision for 6 weeks postoperatively. Do not submerge underwater for 6 weeks postoperatively. Continue with ROMELIA hose/elastic stockings for 2 weeks postoperatively. May remove at nighttime but needs to be placed back on the leg during the day. Do NOT use alcohol with narcotic pain medication. Do NOT make important decisions while taking narcotic medication. If you have problems with taking your medication (rash, itching, nausea, etc.) call the office at once. Follow Up Care Test Results: Test results from this visit will be discussed in further detail at your follow-up appointment, if applicable. Discharge Plan Admission Admit Date/Time: 02/18/23 10:19 Attending Provider: Fredy Marin Primary Care Provider: Madeleine Mejia Consulting Providers: Marcin Cheung; Zachary Roldan Discharge Orders/Prescriptions Prescriptions: New ferrous sulfate [FeroSul] 325 mg (65 mg iron) Tablet 325 mg PO 1200,1700 21 Days Qty: 42 0RF folic acid 1 mg Tablet 1 mg PO BREAKFAST 21 Days Qty: 21 0RF sennosides-docusate sodium [Stool Softener-Stimulant Laxat] 8.6-50 mg Tablet 2 tab PO BID 3 Days Qty: 12 0RF Rx Instructions: Take until your first bowel movement, then take as needed oxycodone 5 mg tablet 5 mg PO Q4H PRN (Reason: pain) 5 Days Qty: 48 0RF Rx Instructions: Take 1-2 tablets every 4 hours as needed for pain Continued amlodipine 10 mg tablet 10 mg PO DAILY omeprazole 40 MG capsule,delayed release(DR/EC) 40 mg PO DAILY apixaban 5 MG tablet 5 mg PO BID Qty: 74 0RF Rx Instructions: 10 mg PO BID x 14 doses, then 5 mg po BID. potassium chloride 10 mEq capsule, extended release 20 meq PO BID Qty: 120 0RF triamterene-hydrochlorothiazid 37.5-25 mg capsule 1 cap PO DAILY Patient Comments: TAKE 1 CAPSULE BY MOUTH EVERY DAY acetaminophen 500 mg Tablet 1,000 mg PO Q8 PRN (Reason: pain) Rx Instructions: Do not take more than 3000 mg Tylenol in a 24-hour period. aspirin 81 mg tablet,delayed release (DR/EC) 81 mg PO DAILY Qty: 90 0RF Held metoprolol succinate 50 mg tablet extended release 24 hr 50 mg PO DAILY Hold Instructions: Resume on 02/20/23. furosemide 40 mg tablet 40 mg PO DAILY Qty: 90 0RF Hold Instructions: Resume on 02/20/23. Other Ambulatory Orders: 12 Lead EKG (Routine) Timeframe: 20230128 Location: None Selected Ordered By: Dr. Fredy Marin CBC-Complete Blood Cnt No Diff (Routine) Timeframe: 2 Weeks Facility: [facility] - Location: Laboratory Ordered By: Epi WATTS Referrals / Follow Up: Physical,Therapy [Other] - 02/23/23 11:30 am Madeleine Mejia DO [Primary Care Provider] - Epi Roberson PA-C [Med Staff - [facility]] - 03/05/23 3:15 pm Disposition Disposition (needs filled in before D/C Order can be placed): Home, Self Care
--- NOTE | 2023-02-19 10:49 | CASEMGMT ---
Met with patient to complete CHO form. CHO form explained to patient who voiced understanding and signed form. Original form placed in pt?s chart and copy provided to?patient. Aundrea Puga, Discharge Planning Asst
--- NOTE | 2023-02-19 11:09 | CASEMGMT ---
Social Work SW met with pt to discuss advance directives.? Pt confirms she has completed a living will and health care POA naming her daughter Velma Anne.? Pt notified that documents are not on file at [facility] and SW requested they be brought in for scanning into the EMR.? NORM Will
[2023-02-19 11:29] VITALS: BP 102/46; PULSE 57; RESP 18; O2SAT 96
[2023-02-19] MEDS: Ferrous Sulfate 325 MG Tablet PO (13:14)
--- NOTE | 2023-02-19 14:10 | CASEMGMT ---
RN?CM?BOTTOM STOP ATTACHER?CM?to room to meet with patient for initial transition planning/care coordination?assessment.?RN?CM?introduced self and role at [facility].? Pt voices understanding and consents to?assessment?at this time.? Pt resting in bed in no distress at this time.? Pt is A/O at this time and answers all questions appropriately.?? Care providers, pharmacy, and demographics verified/updated at this time. PCP: Roberto. Appt scheduled w/[employer], Mildred, on 03/04 @ 12:50 PM and pt made aware. Pt has script for labs to be drawn. Specialists: Tania, ortho; Noé, private mortgage banker safe; Abrahan, leveler helper, Suresh-vascular [facility] Insurance: Stephie SALAZAR Dual Prescription Benefit: yes LNOK: daughters, Velma and Estefania Living Arrangements: Patient lives with daughter in a 2 story home with bed and bath on first floor. Patient states she was independent at home prior to surgery Transportation: daughter DME/HHC: Patient states she has shower chair, raised toilet, cane, cruthces, walker, cpap through [employer] at home. [facility] had [facility] the past. Patient is scheduled for outpatient therpay at [facility] on 02/23/23 @ 11:45 AM. Plan: Patient to discharge home with family support, outpatient therapy, and discharge plans in place. Kayden SALAZARN EDENILSON CM
--- NOTE | 2023-02-19 14:38 | PN.HOSP_ITS ---
Reason for Visit Reason for Visit: Diagnoses Encounter for preprocedural cardiovascular examination (02/18/23) Encounter for other preprocedural examination (02/18/23) Presence of right artificial knee joint (02/18/23) Subjective Subjective And examined today at the request of orthopedic surgery, she underwent a total right knee replacement yesterday, she appears to be doing well today, hemoglobin today was 9.6. Objective Data Objective Data Vital Signs: Vital Signs Temp Pulse Resp BP Pulse Ox O2 Del Method O2 Flow Rate 97.6 F L 57 L 18 102/46 L 96 Room Air 2 02/19/23 08:15 02/19/23 11:29 02/19/23 11:29 02/19/23 11:29 02/19/23 11:29 02/19/23 11:29 02/19/23 05:12 Oxygen Flow Rate (L/min) 2 Oxygen Delivery Method Room Air Weight: 84 kg Body Mass Index (BMI) 31.8 Intake & Output: Intake and Output for Last 24 Hours 02/17/23 02/18/23 02/19/23 23:59 23:59 23:59 Intake Total 5312 / 5712 1850 / 1850 Balance 5312 / 5712 1850 / 1850 Lab / Micro Data 02/19/23 07:37 02/19/23 07:37 Labs: Laboratory Results - last 24 hr 02/18/23 21:50: POC Glucose 321 H 02/18/23 23:50: POC Glucose 254 H 02/19/23 05:55: POC Glucose 180 H 02/19/23 07:37: WBC 15.7 H, RBC 3.42 L, Hgb 9.6 L, Hct 30.5 L, MCV 89.2, MCH 2 8.1, MCHC 31.5 L, RDW Std Deviation 43.6, RDW Coeff of Matthew 13.4, Plt Count 244, MPV 11.1, Sodium 139, Potassium 3.6, Chloride 106, Carbon Dioxide 27.0, Anion Gap 6, BUN 16, Creatinine 0.74, Estim Creat Clear Calc 45.85, Est GFR (MDRD) Af Amer 99, Est GFR (MDRD) Non-Af 82, BUN/Creatinine Ratio 21.5 H, Glucose 153 H, Calcium 8.0 L Micro: Microbiology 11/15/23 08:40 Swab (Method) Nasal Screen MRSA/MSSA - Final Physical Exam Const alert, oriented x3, no apparent distress, average body habitus and healthy appearing General Appearance: cooperative, well kempt and well developed Orientation / Consciousness: awake, oriented to person, oriented to place and oriented to time HEENT normocephalic and moist oral mucous membranes Eyes PERRL, EOMs intact bilaterally and conjunctivae normal Neck supple, no JVD, thyroid normal and no carotid bruits General: trachea midline Resp normal respiratory effort and clear to auscultation bilaterally Auscultation: Negative for rales, rhonchi or wheezes Cardio regular rate, regular rhythm, no murmurs, no rub and no gallops GI normal to inspection, nondistended, normoactive bowel sounds, soft to palpation, non-tender and non-distended Extremity no clubbing, cyanosis or edema Neuro oriented x3, CN's II-XII intact bilaterally, moves all extremities, no focal motor deficits and no sensory deficits noted Sensorium / Orientation: awake and alert Speech: speech normal Psych affect normal Assessment & Plan Assessment/Plan (1) Status post total right knee replacement: PLAN: Plan 1. Essential hypertension-I instructed the patient to hold her metoprolol today and not take her Dyazide, I also encouraged her to ask her family physician about taking her off of one of her diuretics (she is taking 2 diuretics currently) #2 osteoarthritis-status post total right knee replacement #3 chronic anticoagulant use-patient is on Eliquis chronically due to a past history of VTE #4 lymphedema of the right arm #5 acute blood loss anemia as an expected consequence of right knee replacement Patient appears medically stable at this time for discharge home Total clinical time spent by myself addressing the patient's medical issues, reviewing all of her data, and collaborating with patient's care team: 25 minutes Charges/Coding Visit Charges Inpatient E&M: 66516 Subs Hosp L1
== END 2023-02-19 17:05 | disposition home or self-care (01) ==
LOC: SDC 17:05 → MS3 17:05
PROVIDERS: Anesthesiology; Admitting Provider Specialist; PCP Family Medicine; Referring Provider Specialist; Visit Provider Specialist
PROC: 0SRC0JZ Replacement of Right Knee Joint with Synthetic Substitute, Open Approach (ICD-10-PCS; CPT 27447; principal; 2023-02-18 10:00)
DX: M17.11 Unilateral primary osteoarthritis, right knee (principal); I73.9 Peripheral vascular disease, unspecified; E66.9 Obesity, unspecified; G54.0 Brachial plexus disorders; I10 Essential (primary) hypertension; G47.30 Sleep apnea, unspecified; Z68.32 Body mass index [BMI] 32.0-32.9, adult; K21.9 Gastro-esophageal reflux disease without esophagitis; Z79.01 Long term (current) use of anticoagulants; I89.0 Lymphedema, not elsewhere classified; Z86.718 Personal history of other venous thrombosis and embolism; Z79.899 Other long term (current) drug therapy; Z79.82 Long term (current) use of aspirin
CPT/HCPCS: 27447; S2900; 01402; 64445; 36415; 73560; 80048; 82040; 82962; 83036; 83735; 85025; 85027; 85730; 87081; 88305; 88311; 93005; 94668; 96361; 96365; 96366; 97162; 97166; 97530; 99221; 99252; C1776; J7120; G0378; G0463; J2405; J3475

== ENCOUNTER → 2023-10-09 | Outpatient (CLI) | payer MEDICARE, MEDICAID, SELFPAY ==
--- NOTE | 2023-10-09 08:20 | VDUE_ITS ---
Reason For Study: AFTERCARE Right Proximal Left Proximal Right jugular vein is spontaneous, widely Left subclavian vein is spontaneous, widely patent, phasic, with no intraluminal patent, phasic, with no intraluminal echogenicity noted. echogenicity noted. Right subclavian vein is spontaneous, widely patent, phasic, with no intraluminal echogenicity noted. Subclavian stent is patent. Right Lower Arm Right radial vein is compressible. Right ulnar vein is compressible. Right Arm Right axillary vein is spontaneous, patent, phasic, competent, compressible and demonstrates augmentation. Right brachial vein is compressible. Right cephalic vein is compressible. Right basilic vein is compressible. VL/Venous Duplex US, Unilateral Interpretation Summary No dvt and right subclavian stent appears patent. Ordering Physician: Archie Suresh Referring Physician: Madeleine Mejia Performed By: Yomaira Oleary, RDCS, RVT ???
== END | disposition home or self-care (01) ==
PROVIDERS: PCP Family Medicine; Referring Provider Surgery Vascular Surgery; Visit Provider Surgery Vascular Surgery
DX: Z48.812 Encounter for surgical aftercare following surgery on the circulatory system (principal); G54.0 Brachial plexus disorders; R22.31 Localized swelling, mass and lump, right upper limb; M79.609 Pain in unspecified limb; I10 Essential (primary) hypertension
CPT/HCPCS: 93971

== ENCOUNTER → 2024-04-04 | Outpatient (CLI) | payer MEDICARE, MEDICAID, SELFPAY ==
[2024-04-04 11:56] LABS: Absolute Lymphocyte Count 1.33 X10^3/uL (0.83-4.51); Absolute Neutrophil Count 4.7 X10^3/uL (2.0-7.7); Basophil# 0.06 X10^3/uL; Basophil% 0.9 % (0-1); Eosinophil# 0.18 X10^3/uL; Eosinophils% 2.6 % (0-5); Hematocrit 40.1 % (37-47); Hemoglobin 12.5 g/dL (12.0-15.0); Lymphocyte # 1.33 X10^3/ul (0.83-4.51); Lymphocyte % 19.2 % (19-41); Mean Corp Hgb Conc 31.2 g/dL (32-36); Mean Corpuscular Hgb 27.5 pg (27.0-32.0); Mean Corpuscular Volume 88.1 fL (81-99); Mean Platelet Vol. 11.5 fl (6.2-12.0); Monocyte# 0.62 X10^3/uL; NRBC Flagged by Analyzer 0 % (0-5); Neutrophil # 4.69 X10^3/uL (2.7-7.7); Neutrophil % 67.9 % (47-70); Platelet Count 268 K/mm3 (150-450); RBC Distribution Width CV 13.7 % (11.6-14.6); RBC Distribution Width SD 44.2 fl (35.1-43.9); Red Blood Count 4.55 M/mm3 (4.2-5.4); White Blood Count 6.9 K/mm3 (4.4-11.0)
[2024-04-04 12:06] LABS: ALB/GLOB Ratio 0.9 RATIO (0.9-2.4); AST(SGOT) 22 U/L (15-37); Alanine Aminotransfer ALT/SGPT 39 U/L (13-56); Albumin, Serum 3.5 g/dL (3.2-5.0); Alkaline Phosphatase 92 U/L (45-117); Anion Gap 3 (5-15); BUN 17 mg/dL (7-18); BUN/Creat Ratio 20.4 RATIO (10-20); Calcium,Total 9.2 mg/dL (8.5-10.1); Chloride 103 mmol/L (98-107); Cholesterol 170 mg/dL (200); Creatinine, Serum 0.83 mg/dL (0.55-1.02); EST Glomerular Filtration Rate 72 mL/min (>60); Est Glom Filt Rate - Afr Amer 87 mL/min (>60); Globulin 4.1 g/dL (2.2-4.2); Glucose 138 mg/dL (74-106); High Density Lipoprotein 43 mg/dL; Potassium 3.8 mmol/L (3.5-5.1); Protein, Total 7.6 g/dL (6.4-8.2); Sodium Level 136 mmol/L (136-145); Triglycerides 136 mg/dL; Very Low Density Lipoprotein 27 mg/dL (5-40)
[2024-04-04 14:04] LABS: Hemoglobin A1c 6.7 % (3.8-5.6)
== END | disposition home or self-care (01) ==
LOC: BFHLAB 10:13
PROVIDERS: PCP Family Medicine; Visit Provider Family Medicine
DX: E78.5 Hyperlipidemia, unspecified (principal); R73.03 Prediabetes; Z51.81 Encounter for therapeutic drug level monitoring
CPT/HCPCS: 36415; 80053; 80061; 83036; 85025

== ENCOUNTER 2024-10-19 09:15 | Outpatient (RCR) | payer MEDICARE, SELFPAY | END 2024-11-13 23:59 | LOC: NS 09:15 | PROVIDERS: PCP Family Medicine; Referring Provider Family Medicine; Visit Provider Family Medicine | DX: Z71.3 Dietary counseling and surveillance (principal); E11.9 Type 2 diabetes mellitus without complications | CPT/HCPCS: 97802 ==

== ENCOUNTER → 2025-01-09 | Outpatient (CLI) | payer MEDICARE, SELFPAY ==
--- NOTE | 2025-01-09 07:36 | VDUE_ITS ---
Reason For Study Reason For Study: Aftercare / Rt Subclavian Vein Stent Right Proximal Left Proximal Right jugular vein is spontaneous, widely patent, Left subclavian vein is spontaneous, widely patent, phasic, with no intraluminal echogenicity noted. phasic, with no intraluminal echogenicity noted. Right subclavian vein is spontaneous, widely patent, phasic, with no intraluminal echogenicity noted. HX Rt Subclavian Vein Stent. Right Lower Arm Right radial vein is compressible. Right ulnar vein is compressible. Right Arm Right axillary vein is spontaneous, patent, phasic, competent, compressible and demonstrates augmentation. Right brachial vein is compressible. Right cephalic vein is compressible. Right basilic vein is compressible. Procedure This was a unilateral right upper extremity venous doppler examination. Exam performed in department. VL/Venous Duplex US, Unilateral Interpretation Summary Deep veins of the right upper extremity are patent and compressible segmentally . There is no evidence of deep vein thrombosis. Valvular competence appears intact within the right upper venous sy stem. Ordering Physician: Archie Suresh Referring Physician: Madeleine Mejia Performed By: Andrés Roberts RVT ???
== END | disposition home or self-care (01) ==
LOC: CVS 07:35
PROVIDERS: PCP Family Medicine; Referring Provider Surgery Vascular Surgery; Visit Provider Surgery Vascular Surgery
DX: Z48.812 Encounter for surgical aftercare following surgery on the circulatory system (principal); G54.0 Brachial plexus disorders; R22.31 Localized swelling, mass and lump, right upper limb; M79.609 Pain in unspecified limb; I10 Essential (primary) hypertension
CPT/HCPCS: 93971